=== PATIENT | male | born 1945 | race Caucasian/White ===

== ENCOUNTER → 2017-08-10 07:28 | Outpatient (CLI) | payer MEDICARE, BC, SELFPAY ==
--- NOTE | 2017-08-10 07:34 | CT_ITS ---
EXAM: CT LUNG LOW DOSE WO CONTRAST COMPARISON: None HISTORY: 72-year-old male with 55 pack-year smoking history asymptomatic, current smoker ORDERING PHYSICIAN: Jarod Aguilar MD PATIENT AGE: 72 years TECHNIQUE: The exam was performed on a GE Light Speed [address] scanner using 2.90 mGy CTDI. A low dose helical CT CHEST was performed on a multi-detector scanner. All CT scans at the facility use one or more dose reduction, viz: automated exposure control; ma/kV adjustment per patient size (including targeted exams where dose is matched to indication; i.e. head); or iterative reconstruction technique. The LDCT was performed in a facility that meets the criteria for the screening program. Data regarding this exam was submitted to ACR which is an approved registry. The order for this exam indicates that it came as a result of a lung cancer screening counseling shard decision-making visit that included all the elements required of such a visit including smoking cessation. The radiologist interpreting this exam meets the [facility] criteria for the LDCT lung cancer screening program. The exam is reported using the Lung-RADS classification scale and reported to the ACR registry. NOTE: This study was performed for the specific purposes of lung cancer screening and is not an alternative to diagnostic chest CT. RADIATION DOSE: CTDI vol(CT dose Index-volume) = 2.90mG DLP (Dose Length Product) = 108.9 mGcm FINDINGS: There are centrilobular and paraseptal emphysematous changes with scattered areas of pulmonary fibrosis. There is a calcified granuloma in the left upper lobe centrally. 2 mm noncalcified nodule present in subpleural region left upper lobe. Scattered small mediastinal lymph nodes present. Coronary artery calcifications are noted. Nonobstructing stones are present in the right kidney measuring up to 4 mm in the upper pole. There is hyperinflation with bronchial thickening consistent with obstructive chronic bronchitis. No suspicious pulmonary nodules are evident. IMPRESSION: 1. Lung RADS Category: 2, benign 2. Other findings: Centrilobular and paraseptal emphysema with obstructive chronic bronchitis. There is some mild honeycombing/fibrotic changes in the upper lobes and there is evidence of old granulomatous disease and coronary artery calcification as well as a nonobstructing right nephrolithiasis RECOMMENDATIONS: 12 LDCT follow-up
--- NOTE | 2017-08-10 08:00 | US_ITS ---
US abdomen complete HISTORY: Follow-up liver cyst ITS.REASON: ABNORMAL CT SCAN ORDERING PHYSICIAN: Jarod Aguilar MD PATIENT AGE: 72 years COMPARISON: MRI of 08/16/[address] scan to 411 FINDINGS: PANCREAS:6 LIVER:There is a 2.3 x 1.7 cm cystic area involving the right hepatic lobe posteriorly. No other liver lesions are evident. RIGHT KIDNEY:Hyperechoic foci are present in the mid and upper pole the right kidney consistent with nephrolithiasis. No hydronephrosis. LEFT KIDNEY:Unremarkable. No hydronephrosis. Normal size and echogenicity. GALLBLADDER:No gallstones, gallbladder wall thickening, pericholecystic fluid, or biliary dilatation. AORTA:Mild ectasia of the mid abdominal aorta at 2.5 cm SPLEEN:Unremarkable. Normal size and echogenicity ASCITES:None demonstrated. IMPRESSION: 1. 2.3 cm hepatic cyst on the right. 2. Right nephrolithiasis. 3. Mild ectasia of the mid abdominal aorta at 2.5 cm
== END ==
PROVIDERS: Family Provider Family Medicine; PCP Family Medicine; Visit Provider Family Medicine
DX: Z87.891 Personal history of nicotine dependence (principal); Z12.2 Encounter for screening for malignant neoplasm of respiratory organs; R93.5 Abnormal findings on diagnostic imaging of other abdominal regions, including retroperitoneum
CPT/HCPCS: 76700

== ENCOUNTER → 2017-10-26 17:06 | Outpatient (CLI) | payer MEDICARE, BC, SELFPAY ==
--- NOTE | 2017-10-26 17:15 | XR_ITS ---
XR chest 2V HISTORY: Pain ITS.REASON: HISTORY OF PERICARDITIS ORDERING PHYSICIAN: Jarod Aguilar MD PATIENT AGE: 72 years COMPARISON: None FINDINGS: Unremarkable cardiovascular structures. There is hyperinflation with attenuation of the peripheral pulmonary vessels consistent with COPD. No lobar consolidation or collapse. No acute bony anomalies. IMPRESSION: COPD
[2017-10-26 18:31] LABS: Creatine Kinase 91 U/L (39-308); Creatine Kinase MB 1.8 ng/ml (0.0-3.6); Troponin I < 0.02 ng/ml (0.00-0.06)
== END ==
PROVIDERS: Visit Provider Family Medicine
DX: M25.512 Pain in left shoulder (principal)
CPT/HCPCS: 36415; 71046; 82550; 82553; 84484; 93005

== ENCOUNTER → 2017-10-31 13:39 | Outpatient (CLI) | payer MEDICARE, BC, SELFPAY ==
--- NOTE | 2017-10-31 13:43 | CA_ITS ---
PROCEDURE: 2-D M-mode and color Doppler study INDICATIONS FOR THE TEST: Chest pain COPD Heart Murmur Tobacco SmokingX Palpitations Fatigue Syncope Edema Hypertension Diabetes Mellitus Rheumatic Fever SOB LANE Obesity HyperlipidemiaX Family History HD Additional History H/O PERICARDITIS PATIENT INFORMATION HEIGHT: 66 WEIGHT:140 GENDER: Male B/P:110/70 2-D/M-MODE INTERPRETATION: 2-D MEASUREMENTS OBSERVED VALUES IN CMS Right Ventricular Dimension (RVDd) 2.0 Interventricular Septum (Thickness)(IVsd) .8 Left Ventricular Internal Dimensions(LVIDd) 5.0 Left Ventricular Posterior Wall (Thickness)(LVPWd) .8 Aortic Root 3.4 Aortic Cusp Separation 3.1 Left Atrial Dimensions (LAD) 2.5 2D 1. Left atrium is normal size, left ventricle is normal size, there is no concentric left ventricular hypertrophy, visually estimated ejection fraction 55% with no obvious regional wall motion abnormality. 2. The right atrium and right ventricle are normal size and contractility. 3. The aortic valve is minimally thickened and fibrosed. 4. The mitral and tricuspid valve are grossly normal. 5. The pulmonic valve is poorly visualized. 6. No significant pericardial effusion noted. DOPPLER INTERROGATION: Doppler interrogation of the aortic, mitral and tricuspid valvular presence of mild mitral and tricuspid regurgitation, tricuspid and jet velocity is insufficient for calculation of the right ventricular systolic pressure, grade 1 diastolic dysfunction seen without tissue Doppler evidence of raised left atrial pressure. CONCLUSION: 1. Normal left ventricular size, preserved left ventricular systolic function, visually estimated ejection fraction 55% with no obvious regional wall motion abnormality, grade 1 diastolic dysfunction seen without tissue Doppler evidence of raised left atrial pressure. 2. Mild mitral and tricuspid regurgitation 3. No significant pericardial effusion noted.
== END ==
PROVIDERS: Family Provider Family Medicine; PCP Family Medicine; Visit Provider Family Medicine
DX: Z86.79 Personal history of other diseases of the circulatory system (principal); R42 Dizziness and giddiness; I32 Pericarditis in diseases classified elsewhere
CPT/HCPCS: 93306

== ENCOUNTER → 2018-01-11 08:47 | Outpatient (CLI) | payer MEDICARE, BC, SELFPAY ==
--- NOTE | 2018-01-11 08:54 | CI_ITS ---
Cerebrovascular Exam Indications: 785.9 Bruit. 433.10 Occlusion/stenosis of carotid artery without cerebral infarction. IMPRESSIONS 1. The bilateral vertebral arteries are patent with normal antegrade flow. 2. Study suggests 20-49% stenosis involving the right internal carotid artery and the left internal carotid artery. No change from the study of 02-Dec-2014. History: Risk factors: Current tobacco use. Hypertension. Hyperlipidemia. Carotid duplex study. Complete study and Doppler flow study including spectral analysis, color and esteban scale imaging. Location: Vascular laboratory. Patient status: Outpatient. Tables: Arterial flow: + +--------+--------+ Location V sys V ed + +--------+--------+ Right CCA - proximal 56.6cm/s 17.3cm/s + +--------+--------+ Right CCA - distal 51.9cm/s 16.5cm/s + +--------+--------+ Right ECA 104cm/s -------- + +--------+--------+ Right ICA - proximal 57cm/s 20.1cm/s + +--------+--------+ Right ICA - mid 62.4cm/s 20.6cm/s + +--------+--------+ Right ICA - distal 91.3cm/s 30cm/s + +--------+--------+ Right vertebral 31.9cm/s -------- + +--------+--------+ Left CCA - proximal 74.2cm/s 14.7cm/s + +--------+--------+ Left CCA - distal 60.9cm/s 12.8cm/s + +--------+--------+ Left ECA 89.4cm/s -------- + +--------+--------+ Left ICA - proximal 39.5cm/s 12.9cm/s + +--------+--------+ Left ICA - mid 54.5cm/s 17.1cm/s + +--------+--------+ Left ICA - distal 59.1cm/s 18.1cm/s + +--------+--------+ Left vertebral 41.9cm/s -------- + +--------+--------+ Velocity ratios: + + + + + + Right, V sys Right, V ed Left, V sys Left, V ed + + + + + + Max ICA/dist CCA 1.76 1.82 0.97 1.41 + + + + + + (Report amended ) Electronically signed by: Armani Hodges [id number]
== END ==
PROVIDERS: Family Provider Family Medicine; PCP Family Medicine; Visit Provider Family Medicine
DX: I65.23 Occlusion and stenosis of bilateral carotid arteries (principal)
CPT/HCPCS: 93880

== ENCOUNTER → 2018-10-11 14:57 | Outpatient (CLI) | payer MEDICARE, BC, SELFPAY ==
--- NOTE | 2018-10-11 15:06 | CT_ITS ---
CT lung screening EXAM: CT LUNG LOW DOSE WO CONTRAST HISTORY: 56 pack year smoking history, asymptomatic for lung cancer ITS.REASON: H/O NICOTINE DEPENDENCE ORDERING PHYSICIAN: Jarod Aguilar MD PATIENT AGE: 73 years COMPARISON: 08/10/2017 TECHNIQUE: The exam was performed on a GE Light Speed [address] scanner using 2.90 mGy CTDI. A low dose helical CT CHEST was performed on a multi-detector scanner. All CT scans at the facility use one or more dose reduction, viz: automated exposure control, ma/kV adjustment per patient size (including targeted exams where dose is matched to indication, i.e. head), or iterative reconstruction technique. The LDCT was performed in a facility that meets the criteria for the screening program. Data regarding this exam was submitted to ACR which is an approved registry. The order for this exam indicates that it came as a result of a lung cancer screening counseling shard decision-making visit that included all the elements required of such a visit including smoking cessation. The radiologist interpreting this exam meets the CMS criteria for the LDCT lung cancer screening program. The exam is reported using the Lung-RADS classification scale and reported to the ACR registry. NOTE: This study was performed for the specific purposes of lung cancer screening and is not an alternative to diagnostic chest CT. RADIATION DOSE: CTDI vol(CT dose Index-volume) = 2.90mG DLP (Dose Length Product) = 113.07 mGcm FINDINGS: Changes of COPD. Paraseptal emphysematous change. Old granulomatous disease. Coronary artery calcification. Upper abdominal images show right-sided nephrolithiasis. There is diffuse fatty infiltration of the pancreas. IMPRESSION: 1. Lung RADS Category: 2, benign 2. Other findings: COPD, are subcutaneous emphysema, coronary artery disease RECOMMENDATIONS: 12 month LDCT follow-up
== END ==
PROVIDERS: PCP Family Medicine; Visit Provider Family Medicine
DX: Z12.2 Encounter for screening for malignant neoplasm of respiratory organs (principal); Z87.891 Personal history of nicotine dependence

== ENCOUNTER → 2018-11-28 11:36 | Outpatient (CLI) | payer MEDICARE, BC, SELFPAY ==
--- NOTE | 2018-11-28 11:41 | XR_ITS ---
XR chest 2V HISTORY: ITS.REASON: HISTORY OF BACTERIAL PNEUMONIA,NICOTINE DEPENDENCE ORDERING PHYSICIAN: Jarod Aguilar MD PATIENT AGE: 73 years COMPARISON: 10/26/2017 FINDINGS: Unremarkable cardiovascular structures. COPD. No lobar consolidation or collapse. Mild degenerative changes of the shoulders and spine. IMPRESSION: No change with no acute finding, COPD
== END ==
PROVIDERS: PCP Family Medicine; Visit Provider Family Medicine
DX: Z87.01 Personal history of pneumonia (recurrent) (principal); Z87.891 Personal history of nicotine dependence
CPT/HCPCS: 71046

== ENCOUNTER → 2019-01-15 12:49 | Outpatient (POV) | payer MEDICARE, BC, SELFPAY | PROVIDERS: Visit Provider Internal Medicine | DX: Z00.00 Encounter for general adult medical examination without abnormal findings (principal) ==

== ENCOUNTER → 2019-01-21 10:58 | Outpatient (CLI) | payer MEDICARE, BC, SELFPAY ==
[2019-01-21 12:15] VITALS: PULSE 89
== END ==
PROVIDERS: PCP Family Medicine; Visit Provider Internal Medicine
DX: R06.02 Shortness of breath (principal); J44.9 Chronic obstructive pulmonary disease, unspecified
CPT/HCPCS: 94060; 94618; 94640; 94726; 94729

== ENCOUNTER → 2019-03-26 16:33 | Outpatient (CLI) | payer MEDICARE, BC, SELFPAY ==
--- NOTE | 2019-03-26 16:53 | MR_ITS ---
PROCEDURE: MR HEAD/BRAIN WO/W CON CLINICAL INDICATION: TIA Left-sided face arm hand and leg numbness COMPARISON: No exams were available for comparison TECHNIQUE: Routine multiplanar multi echo sequences are performed without and with gadolinium enhancement. FINDINGS: No midline shift, mass effect, intracranial hemorrhage, or hydrocephalus. No evidence of acute infarction. There are periventricular and subcortical T2 white matter hyperintensities consistent with ischemic gliotic change from microvascular disease. The cerebellopontine angles, cerebellum, and brainstem are unremarkable. The pituitary, optic chiasm, corpus callosum, and craniocervical junction have an unremarkable appearance. No mastoid effusion or sinus air-fluid level. No enhancing lesions are evident. There are cystic encephalomalacia changes with old bilateral lacunar infarctions of the basal ganglia. There is partial empty sella as a normal variant. IMPRESSION: 1. No acute intracranial findings. 2. Old bilateral lacunar infarctions with periventricular ischemic gliotic change Dictated by: Armani Hodges MD 03/26/2019 17:56 Electronically signed by Armani Hodges MD in [place] 03/27/2019 04:54
[2019-03-26 16:56] LABS: Blood Urea Nitrogen 18 mg/dL (7-18); Creatinine,Serum 1.08 mg/dL (0.70-1.30); Estimated Glomerular Filt Rate 67 ml/min (>60); GFR (African American) 82 ML/MIN (>60)
== END ==
PROVIDERS: Visit Provider Family Medicine
DX: G45.9 Transient cerebral ischemic attack, unspecified (principal)
CPT/HCPCS: 36415; 70553; 82565; 84520; A9576

== ENCOUNTER → 2019-05-31 16:49 | Outpatient (CLI) | payer MEDICARE, BC, SELFPAY ==
--- NOTE | 2019-05-31 16:56 | XR_ITS ---
PROCEDURE: XR CHEST 2V CLINICAL HISTORY: PNEUMONIA RT LOWER LOBE COMPARISON: CXR2V XR chest 2V from 10/26/[address] chest w con from 10/28/2018 FINDINGS: [id number] emphysematous changes again noted with flattening of the hemidiaphragms. There is a somewhat ill-defined pneumonic infiltrate in the right infrahilar region and right lower lobe. There is blunting of the right costophrenic angle consistent with small pleural effusion. The right upper lung field and left lung dunlap are clear. Cardiac size is normal and vascularity is normal. IMPRESSION: Ill-defined right lower lobe pneumonia with small reactive pleural effusion along with underlying COPD Dictated by: Dr. Suresh Hamm MD 06/01/2019 08:[address] Suresh Hamm MD in [place] 06/01/2019 08:30
== END ==
PROVIDERS: PCP Family Medicine; Visit Provider Family Medicine
DX: R55 Syncope and collapse (principal); J18.9 Pneumonia, unspecified organism
CPT/HCPCS: 71046

== ENCOUNTER → 2019-06-03 12:24 | Outpatient (CLI) | payer MEDICARE, BC, SELFPAY | PROVIDERS: PCP Family Medicine; Visit Provider Family Medicine | DX: R55 Syncope and collapse (principal); J18.9 Pneumonia, unspecified organism | CPT/HCPCS: 93225; 93226 ==

== ENCOUNTER → 2019-06-11 07:39 | Outpatient (CLI) | payer MEDICARE, BC, SELFPAY ==
[2019-06-11 07:57] LABS: Blood Urea Nitrogen 17 mg/dL (7-18); Creatinine,Serum 1.07 mg/dL (0.70-1.30); Estimated Glomerular Filt Rate 68 ml/min (>60); GFR (African American) 82 ML/MIN (>60)
--- NOTE | 2019-06-11 08:34 | CT_ITS ---
PROCEDURE: CT CHEST W CON CLINCAL INDICATION: RT LOW LOBE PNEUMONIA Follow-up pneumonia, smoker COMPARISON: CHESTW CT chest w con from 10/28/2018 XR CHEST 2V from 05/31/2019 TECHNIQUE: IV Contrast: 75ml Optiray 350 Axial images obtained with sagittal and coronal reformats. All CT scans at the facility use one or more dose reduction, viz: automated exposure control, ma/kV adjustment per patient size (including targeted exams where dose is matched to indication, i.e. head), or iterative reconstruction technique. FINDINGS: No mediastinal or hilar mass or adenopathy. Atherosclerotic changes involve the aorta and great vessels. No definite aneurysm or dissection. There is minimal ectasia of the aortic arch at 3 cm. There are few scattered small mediastinal lymph nodes not significantly changed. Coronary artery calcifications are present and there is calcification at the aortic root. Normal heart size. COPD changes with paraseptal emphysema. There is consolidation in the right lower lobe inferiorly and posteriorly consistent with pneumonia. There is an irregular opacity in the right lower lobe laterally which could also be related to some underlying pneumonia. Developing spiculated nodule is an additional consideration. This measures 1.6 cm and follow-up is suggested of this lesion. This is near but not immediately adjacent to the main area of pneumonia in the right lower lobe. No central obstructing lesions. There is a calcified granuloma in the left upper lobe. Atelectatic changes are present in the left lower lobe. There is trace right pleural effusion the There are degenerative changes in the thoracic spine with mild levoscoliosis. Degenerative changes at the body and manubrium of the sternum Upper abdominal images show nonobstructing right renal calculi measuring up to 4 mm. There is mild atrophic change of the left kidney. There is approximately 40-50 percent stenosis of the ostium of the celiac artery and the proximal SFA IMPRESSION: 1. Changes of COPD with right lower lobe pneumonia with trace right effusion 2. 1.6 cm irregular opacity right lower lobe laterally and more superiorly which could also be due to a separate focus of pneumonia. Recommend 3 month follow-up to confirm resolution as neoplasm is not excluded 3. Other nonacute findings as described above Dictated by: Armani Hodges MD 06/12/2019 07:05 Electronically signed by Armani Hodges MD in [place] 06/12/2019 07:05
== END ==
PROVIDERS: PCP Family Medicine; Visit Provider Family Medicine
DX: R09.89 Other specified symptoms and signs involving the circulatory and respiratory systems (principal); J18.9 Pneumonia, unspecified organism
CPT/HCPCS: 36415; 71260; 82565; 84520; Q9967

== ENCOUNTER → 2019-07-08 12:31 | Outpatient (CLI) | payer MEDICARE, BC, SELFPAY ==
--- NOTE | 2019-07-08 12:38 | XR_ITS ---
PROCEDURE: XR CHEST 2V CLINICAL HISTORY: PNEUMONIA Follow-up pneumonia COMPARISON: CXR2V XR chest 2V from 10/26/2017 XR CHEST 2V from 05/31/2019 CT CHEST W CON from 06/11/2019 FINDINGS: The cardiomediastinal silhouette and pulmonary vascularity are within normal limits. COPD. Right lower lobe infiltrate once again noted but has shown some improvement. Small right pleural effusion persists but has improved. No acute bony findings. IMPRESSION: Persistent but improving right lower lobe pneumonia with small effusion Dictated by: Armani Hodges MD 07/08/2019 13:06 Electronically signed by Armani Hodges MD in [place] 07/08/2019 13:06
== END ==
PROVIDERS: PCP Family Medicine; Visit Provider Family Medicine
DX: J18.9 Pneumonia, unspecified organism (principal)
CPT/HCPCS: 71046

== ENCOUNTER → 2020-02-17 12:09 | Outpatient (CLI) | payer MEDICARE, BC, SELFPAY ==
--- NOTE | 2020-02-17 | CA_ITS ---
APPROVED REPORT [employer]: CT Laterality: Bilateral Study Quality: Fair, Due to body habitus. Indications: Bruit Risk Factors Hypertension: Hyperlipidemia Doppler Spectral Velocity Analysis ECA (R) 88.00/13.50 cm/s ECA (L) 87.30/10.30 cm/s dICA (R) 99.50/19.90 cm/s dICA (L) 75.40/20.90 cm/s Tj (R) 95.00/20.50 cm/s Tj (L) 65.10/18.10 cm/s pICA (R) 59.90/16.70 cm/s pICA (L) 53.20/15.40 cm/s dCCA (R) 57.80/8.30 cm/s dCCA (L) 69.30/9.60 cm/s pCCA (R) 87.40/11.10 cm/s pCCA (L) 102.10/10.90 cm/s Vert (R) 43.40/5.10 cm/s Vert (L) 46.90/10.90 cm/s ICA/CCA 1.70 ICA/CCA 1.10 Findings Duplex evaluation demonstrates stenosis of the right proximal internal carotid artery in the range of 20-49%. Duplex evaluation demonstrates stenosis of the left proximal internal carotid artery in the range of 20-49%. Duplex evaluation demonstrates antegrade flow of the bilateral Vertebral Arteries. Difficult exam. Conclusion Duplex evaluation demonstrates stenosis of the right proximal internal carotid artery in the range of 20-49%. Duplex evaluation demonstrates stenosis of the left proximal internal carotid artery in the range of 20-49%. Duplex evaluation demonstrates antegrade flow of the bilateral Vertebral Arteries. Difficult exam. Electronically signed by : Armani Hodges MD 02/17/2020 17:16:05
--- NOTE | 2020-02-17 13:37 | CT_ITS ---
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 All CT scans at the facility use one or more dose reduction, viz: automated exposure control, ma/kV adjustment per patient size (including targeted exams where dose is matched to indication, i.e. head), or iterative reconstruction technique. FINDINGS: HEART AND MEDIASTINAL STRUCTURES: No mediastinal or hilar mass or adenopathy. Coronary artery calcifications are present.. No evidence of aortic aneurysm, dissection, or pulmonary embolus. Atherosclerotic calcifications involve the aorta great vessels, coronary arteries and at the ostium of the celiac and SMA the. LUNGS AND PLEURAL SPACES: COPD with scattered areas of scarring with paraseptal emphysema. Previously described pneumonia in the right lower lobe has cleared. There is some minimal scarring in the right lung base laterally. The 1.6 cm parenchymal opacity in the right lower lobe more superior to the previously described pneumonia has also cleared. No suspicious nodules are evident. BONY STRUCTURES: Degenerative changes thoracic spine UPPER ABDOMEN: There is a 2.4 cm isodense oval lesion involving the right hepatic lobe posteriorly previously felt to represent a hepatic cyst previous exams. There is diffuse fatty infiltration of the pancreas. There are nonobstructing right renal calculi ADDITIONAL FINDINGS: No other significant abnormalities. IMPRESSION: 1. No acute finding. 2. COPD with scattered areas of scarring. 3. Previously noted spiculated nodule in the right lower lobe and right lower lobe pneumonia has resolved. No suspicious lesions are evident. 4. Other nonacute findings as described above Dictated by: Armani Hodges MD 02/18/2020 08:32 Armani Hodges MD in [place] 02/18/2020 08:32
[2020-02-17 14:46] LABS: Blood Urea Nitrogen 14 mg/dl (9-20); Estimated Glomerular Filt Rate 83 ml/min (>60); GFR (African American) 100 ML/MIN (>60)
== END ==
PROVIDERS: PCP Family Medicine; Visit Provider Family Medicine
DX: I65.23 Occlusion and stenosis of bilateral carotid arteries (principal); R93.89 Abnormal findings on diagnostic imaging of other specified body structures
CPT/HCPCS: 36415; 71260; 82565; 84520; 93880; Q9967

== ENCOUNTER → 2021-02-25 09:47 | Outpatient (CLI) | payer MEDICARE, BC, SELFPAY | PROVIDERS: PCP Family Medicine; Visit Provider Family Medicine | DX: U07.1 COVID-19 (principal); Z23 Encounter for immunization | CPT/HCPCS: 96365 ==

== ENCOUNTER → 2022-02-24 14:35 | Outpatient (CLI) | payer MEDICARE, BC, SELFPAY ==
--- NOTE | 2022-02-24 14:42 | CT_ITS ---
FINAL REPORT CLINICAL HISTORY: H/O NICOTINE DEPENDENCE, patient states he has cut way back, still smokes every once in a while, cut back 2 years ago , before that it was 1 1/2 packs a day x 50 years COMPARISON: February 17, 2020 FINDINGS: Low-Dose Chest CT CTDI vol (mGy): 2.90 DLP (mGy-cm): 109.68 Axial images were obtained from the lung apex to the mid abdomen by computed tomography. Low-dose protocol was utilized. FINDINGS: CHEST: There is no axillary adenopathy. There is no hilar or mediastinal adenopathy. There is calcification in the aortic arch. There is dense calcification in the coronary arteries. The heart is proper size. There is no pericardial or pleural effusion. Limited images of the upper abdomen are unremarkable. Lung window images demonstrate no suspicious infiltrate or nodule. There is scarring in the right lung base. IMPRESSION: Lung RADS category 1. Recommend 12 month follow-up low-dose chest CT. Reviewed, Interpreted and Dictated by Brenton Webb MD Transcribed by Kendrick Ca Authenticated and . [facility]
== END ==
PROVIDERS: PCP Family Medicine; Visit Provider Family Medicine
DX: Z87.891 Personal history of nicotine dependence (principal); Z12.2 Encounter for screening for malignant neoplasm of respiratory organs
CPT/HCPCS: 71271

== ENCOUNTER 2022-04-26 11:21 | Day surgery (SDC) | payer MEDICARE, BC, SELFPAY ==
[2022-04-22 17:12] VITALS: BMI 24.2
[2022-04-26] VITALS (10 sets, daily range): BP systolic 82–160; BP diastolic 47–69; PULSE 65–102; RESP 16–17; TEMP 36.3–36.4; O2SAT 92–96
--- NOTE | 2022-04-26 12:06 | EXP.ANES.CKL ---
[facility] Disclaimer: The information contained in this section may have been updated after the patient was seen, as this information can be updated by other users. Medical History Congestive heart failure Hyperlipidemia Surgical History History of rotator cuff surgery Family History Other No significant family history Social History Smoking Status: Never smoker alcohol intake: never substance use type: denies use current occupational status: retired Travel in the last 8 weeks: None [facility] Anesthesia Checklist Patient Identification Patient Identification: Arm Band and Verbal (Name & ) Structural Data Admitted From: Home Planned Operative Procedure/s: Colonoscopy Consent for Planned Operative Procedure(s) Verified: Yes NPO Status Verified Time NPO: 00:00 Airway Assessment C-Spine Mobility Assessed: Yes TMJ Mobility Assessed: Yes Dentition: Dentures-good fit Neurological Assessment Level of Consciousness: Awake Hx Seizures: No Numbness or tingling in extremities: No Anesthesia Plan Anesthesia Risk discussed: Yes Anesthesia Plan: Verified ASA Class: III Anesthesia Type: MAC
--- NOTE | 2022-04-26 13:47 | P.PCN_ITS ---
Procedure: Date: 04/26/22 Patient Date of :: 1945 Procedure Performed:: Colonoscopy with polypectomy Indications:: History of colon polyps Performing Provider:: Will Taylor MD Referring Provider:: . Sedation:: Monitored anesthesia care Procedure:: After informed consent was obtained the patient was taken to the endoscopy suite. Sedation ensued after the patient was transferred to the left lateral d ecubitus position. Pulse, blood pressure, and oxygen saturation were monitored throughout the procedure. Digital rectal exam revealed no significant abnormality. The colonoscope was placed in position. The entire colon was evaluated. The colonoscope was carefully removed and the patient was transferred to recovery in stable condition. Please see findings and specimens below for detail. Findings:: Bowel preparation fair to moderate Profound lack of relaxation/spasticity Hemorrhoidal tag/cushions Multiple large complex sessile polyps (see specimens) Specimens:: Complex lobulated sessile right colon polyps (x8) - cold snare and cold biopsy forceps Complex lobulated sessile hepatic flexure polyps (x7) - cold snare Complex lobulated sessile polyps around 50 cm (x8) - cold snare Complex lobulated sessile polyps around 40 cm (x5) - cold snare Complex lobulated sessile polyps around 35 cm (x6) - cold snare Complex lobulated sessile polyps around 30 cm (x8) - cold snare Recommendations:: Repeat colonoscopy in 6-12 months secondary to massive polyp burden, spasticity, and lack of relaxation. Complications:: No immediate Estimated blood obtained (mL): 1
--- NOTE | 2022-04-26 14:22 | SUR.PHASEII ---
Jalil Boggs notified Donald Walter CRNA of BP of 55-60 systolicly at times. she stated she would put in an order for medicine. pt put in new position to try and help bp.
== END 2022-04-26 15:08 | disposition home or self-care (01) ==
PROVIDERS: PCP Family Medicine; Visit Provider Surgery
PROC: 0DJD8ZZ Inspection of Lower Intestinal Tract, Via Natural or Artificial Opening Endoscopic (ICD-10-PCS; principal; 2022-04-26 12:30)
DX: R19.5 Other fecal abnormalities (principal); D12.6 Benign neoplasm of colon, unspecified; Z86.010 Personal history of colon polyps; Z79.899 Other long term (current) drug therapy
CPT/HCPCS: 45380; 45385; 88305; J1610; J2704

== ENCOUNTER → 2022-10-17 11:52 | Outpatient (CLI) | payer MEDICARE, BC, SELFPAY ==
[2022-10-17 12:28] LABS: Blood Urea Nitrogen 20 mg/dl (9-20); Estimated Glomerular Filt Rate 73 ml/min (>60); GFR (African American) 88 ML/MIN (>60)
== END ==
PROVIDERS: PCP Family Medicine; Visit Provider Family Medicine
DX: M51.16 Intervertebral disc disorders with radiculopathy, lumbar region (principal)
CPT/HCPCS: 36415; 82565; 84520

== ENCOUNTER → 2022-10-24 12:47 | Outpatient (CLI) | payer MEDICARE, BC, SELFPAY ==
--- NOTE | 2022-10-24 12:52 | MR_ITS ---
FINAL REPORT CLINICAL HISTORY: LUMBAR DISC DISEASEWITH RADICULOPATHY. bilateral leg numbness. no injury or trauma FINDINGS: Multiplanar MR imaging of the lumbar spine was performed without and with contrast. On the sagittal T2-weighted images, abnormal decreased signal is seen throughout. There are endplate changes at multiple levels. Mild retrolisthesis is seen from L1-2 through L5-S1. There is mild rightward curvature. There is no evidence of fracture. The conus is seen at approximately the L1 level and has an unremarkable appearance. T11-12: Annular disc bulge with facet arthropathy and osteophytes. T12-L1: Annular disc bulge with facet arthropathy and osteophytes. There is mild right neural foraminal narrowing. L1-2: Annular disc bulge with facet arthropathy and osteophytes. There is mild bilateral neural foraminal narrowing. L2-3: Annular disc bulge with facet arthropathy and osteophytes. There is mild bilateral neural foraminal narrowing. L3-4: Annular disc bulge with facet arthropathy and osteophytes. There is moderate right and severe left neural foraminal narrowing. L4-5: Annular disc bulge with facet arthropathy and osteophytes. There is moderate right and mild left neural foraminal narrowing. L5-S1: Annular disc bulge with facet arthropathy and mild bilateral neural foraminal narrowing. No abnormal contrast enhancement is identified. IMPRESSION: Multilevel mild degenerative disc disease and spondylosis with areas of neural foraminal narrowing as described. Reviewed, Interpreted and Dictated by Zachery Clements III, MD Transcribed by Shama Box Authenticated and [facility]
== END ==
PROVIDERS: PCP Family Medicine; Visit Provider Family Medicine
DX: M54.50 Low back pain, unspecified (principal); M54.16 Radiculopathy, lumbar region
CPT/HCPCS: 72158; 76376; A9576

== ENCOUNTER 2022-11-26 10:21 | Emergency (ER) | payer MEDICARE, BC, SELFPAY ==
[2022-11-26 10:31] VITALS: BP 134/63; PULSE 75; O2SAT 96
--- NOTE | 2022-11-26 10:32 | PC.NURSE ---
ER @ BS, vitals obtained upon arrival
[2022-11-26 10:43] VITALS: BP 134/63; PULSE 69; RESP 20; TEMP 36.7; O2SAT 96; BMI 24.2
--- NOTE | 2022-11-26 10:48 | HMH.EDGENADL ---
Discharge Plan Disposition Patient Disposition: Home, Self-Care Condition: Good Prescriptions Prescriptions: No Action losartan-hydrochlorothiazide 50-12.5 mg tablet 1 tab PO DAILY gemfibrozil 600 mg tablet 600 mg PO DAILY atorvastatin 20 mg tablet 20 mg PO DAILY clopidogrel 75 mg tablet 75 mg PO DAILY aspirin 81 mg Capsule 81 mg PO DAILY Referrals Follow up/Referrals: Jarod Aguilar MD [Primary Care Provider] - See instructions Activity Restrictions/Add. Instructions Additional Instructions/Restrictions: At this time was felt you are safe to be discharged home. If new or worsening symptoms please do not hesitate to return to the emergency department. Please follow-up with your family doctor for continued evaluation of your numbness as well as rechecking your calcium. Please follow-up with your spine doctor as discussed. Clinical Impressions Clinical Impression: Alterations of sensations, Hypocalcemia Discharge ED Provider: Benny Burgess General Adult HPI General Chief complaint: Extremity Problem,Nontraumatic Stated complaint: numbness in feet and side Time Seen by Provider: 11/26/22 10:29 History of Present Illness HPI narrative: Patient is a 77-year-old male with past medical history of hypertension, hyperlipidemia, not current smoker however multi pack-year smoker history who presents emergency department for evaluation of sensation changes. History is obtained by patient at bedside. He states that he was started on donepezil for dementia approximately 4 weeks ago. After 2 weeks he noticed tingling in the distal plantar aspect of his feet bilaterally. He self discontinued his donepezil approximately 2 weeks ago and symptoms have not resolved. He has a history of longstanding back pain that is currently under investigation by spine doctors and his next appointment is Monday for possible surgical intervention for reported multiple degenerative disks and slipped disc abnormalities in his mid to low back. He states that there is an area of change sensation over his right upper quadrant however it is not truly numb. Patient denies significant alcohol intake, saddle anesthesia, speech changes, incontinence, weakness, gait changes, trauma. Related Data Home Medications Medication Instructions Recorded Confirmed atorvastatin 20 mg tablet 20 mg PO DAILY hld 07/15/19 05/04/22 clopidogrel 75 mg tablet 75 mg PO DAILY Blood thinner 07/15/19 05/04/22 gemfibrozil 600 mg tablet 600 mg PO DAILY hld 07/15/19 05/04/22 losartan 50 mg-hydrochlorothiazide 1 tab PO DAILY Fluid 07/15/19 05/04/22 12.5 mg tablet aspirin 81 mg capsule 81 mg PO DAILY CAD 04/22/22 05/04/22 Allergies Allergy/AdvReac Type Severity Reaction Status Date / Time No Known Allergies Allergy Verified 05/04/22 10:50 [facility] Disclaimer: The information contained in this section may have been updated after the patient was seen, as this information can be updated by other users. Medical History Congestive heart failure Hyperlipidemia Surgical History History of rotator cuff surgery Family History Other No significant family history Social History Smoking Status: Former smoker alcohol intake: never substance use type: denies use current occupational status: retired Travel in the last 8 weeks: None ROS Obtained: Yes Systems reviewed as appropriate & no additional complaints except as documented Physical Exam General General appearance: alert and in no apparent distress Head Head exam: atraumatic and normocephalic Eye Eye exam: Present PERRL and EOMI ENT ENT exam: Present mucous membranes moist Neck Neck exam: Present normal inspection Ches
[2022-11-26 11:00] VITALS: BP 103/64; PULSE 60; RESP 18; O2SAT 93
[2022-11-26 11:16] LABS: Basophils % 0.4 % (0.1-2.0); Eosinophils # 0.2 K/mm3 (0.0-0.4); Hematocrit 38.5 % (42.0-52.0); Hemoglobin 12.4 g/dL (14.1-18.0); Lymphocytes # 1.2 K/mm3 (0.7-4.5); Lymphocytes % 19.7 % (10-50); Mean Corpuscular HGB Conc 32.3 g/dL (31.8-35.4); Mean Corpuscular Hemoglobin 28.8 pg (27.0-31.2); Mean Corpuscular Volume 89.1 fl (80-94); Monocytes # 0.4 K/mm3 (0.1-1.0); Monocytes % 7.3 % (1.7-9.3); Neutrophils # 4.1 K/mm3 (1.8-7.8); Neutrophils % 69.6 % (37.0-80.0); Platelet Count 294 K/mm3 (142-424); Red Blood Count 4.32 M/mm3 (4.60-6.20); Red Cell Distribution Width 13.5 % (11.5-17.5); White Blood Count 5.9 K/mm3 (4.8-10.8)
[2022-11-26 11:22] LABS: Chloride 102 mmol/L (98-107); Sodium 139 mmol/L (136-145)
[2022-11-26 11:24] LABS: Alanine Aminotransferase 37 U/L (12-78); Aspartate Amino Transferase 54 U/L (17-59); Blood Urea Nitrogen 21 mg/dl (9-20); Creatinine Clearance Estimated 61 mL/min (50-200); Estimated Glomerular Filt Rate 73 ml/min (>60); GFR (African American) 88 ML/MIN (>60)
[2022-11-26 11:25] LABS: Albumin/Globulin Ratio 1.4 (1.1-1.8); Alkaline Phosphatase 77 U/L (38-126); Anion Gap 9.4 mEq/L (5-15); Bilirubin,Total 0.4 mg/dl (0.2-1.3); Carbon Dioxide 32 mmol/L (22.0-30.0); Globulin 2.9 g/dL (1.3-3.2); Magnesium 1.9 mg/dl (1.6-2.3); Potassium 4.4 mmoL/L (3.5-5.1); Total Protein,Serum 6.9 g/dl (6.3-8.2)
[2022-11-26 11:31] LABS: Glucose 100 mg/dl (74-100)
[2022-11-26 11:34] VITALS: BP 126/56; PULSE 60; RESP 18; O2SAT 97
[2022-11-26 13:09] VITALS: BP 147/80; PULSE 84; RESP 20; TEMP 36.8; O2SAT 99
== END 2022-11-26 13:10 | disposition home or self-care (01) ==
PROVIDERS: Emergency Provider Emergency Medicine; PCP Family Medicine
DX: E83.51 Hypocalcemia (principal); R20.0 Anesthesia of skin; I11.0 Hypertensive heart disease with heart failure; E78.5 Hyperlipidemia, unspecified; I50.9 Heart failure, unspecified; Z87.891 Personal history of nicotine dependence
CPT/HCPCS: 80053; 83735; 85025; 96365; 96366; 99284

== ENCOUNTER → 2022-12-09 09:17 | Outpatient (CLI) | payer MEDICARE, BC, SELFPAY ==
--- NOTE | 2022-12-09 09:26 | US_ITS ---
FINAL REPORT CLINICAL HISTORY: HLD, claudication FINDINGS: LOWER EXTREMITY SEGMENTAL PRESSURE MEASUREMENTS FINDINGS: Pressure indices are as follows: RIGHT LOWER EXTREMITY: Thigh:112 Calf: 109 Ankle, posterior tibial artery: 116 Ankle, dorsalis pedis: 113 Toe: 66 Comments: LEFT LOWER EXTREMITY: Thigh:94 Calf: 101 Ankle, posterior tibial artery: 101 Ankle, dorsalis pedis: 94 Toe: 53 Comments: IMPRESSION: Mild peripheral vascular disease, right greater than left. Reviewed, Interpreted and Dictated by Jarod Camacho MD Transcribed by Shama Box Authenticated and [facility]
== END ==
PROVIDERS: PCP Family Medicine; Visit Provider Family Medicine
DX: I70.213 Atherosclerosis of native arteries of extremities with intermittent claudication, bilateral legs (principal); E78.5 Hyperlipidemia, unspecified
CPT/HCPCS: 93923

== ENCOUNTER → 2023-01-13 13:15 | Outpatient (CLI) | payer MEDICARE, BC, SELFPAY ==
--- NOTE | 2023-01-13 13:46 | CA_ITS ---
FINAL REPORT TECHNIQUE: Multiple transverse and longitudinal images were performed of the right femoral-popliteal deep venous system with augmentation and compression maneuvers. CLINICAL HISTORY: LBP with injury, Right leg pain from groin to lower calf. FINDINGS: Right lower extremity duplex ultrasound demonstrates normal flow in the deep venous system. There is no abnormal echogenicity to suggest thrombus. There is normal compression and augmentation. IMPRESSION: No evidence of right DVT. Reviewed, Interpreted and Dictated by Brenton Webb MD Transcribed by Chelsey Holloway Authenticated and [facility]
== END ==
PROVIDERS: PCP Family Medicine; Visit Provider Family Medicine
DX: M79.604 Pain in right leg (principal)
CPT/HCPCS: 93971

== ENCOUNTER 2023-06-21 11:41 | Observation (INO) | payer MEDICARE, BC, SELFPAY ==
[2023-06-21] VITALS (23 sets, daily range): BP systolic 75–145; BP diastolic 32–75; PULSE 90–147; RESP 15–20; TEMP 36.6–37.4; O2SAT 92–96; BMI 23.8; BMI 24.5
--- NOTE | 2023-06-21 12:15 | XR_ITS ---
FINAL REPORT CLINICAL HISTORY: general weakness COMPARISON: None FINDINGS: SINGLE VIEW CHEST A spinal stimulator is noted overlying the thoracic spine. Cardiomegaly is noted. The mediastinum is within normal limits. No confluent infiltrates are identified. The bony thorax is intact. IMPRESSION: No active disease. Spinal stimulator is present. Reviewed, Interpreted and Dictated by Zachery Clements III, MD Transcribed by Elizabet Butler Authenticated and [facility]
[2023-06-21] MEDS: LACTATED RINGERS 1000ML 1,910 ML 955 ML IV (12:19)
--- NOTE | 2023-06-21 12:33 | ED_ITS ---
Discharge Plan Disposition Patient Disposition: Home, Self-Care Chief Complaint: Weakness Prescriptions Prescriptions: No Action losartan-hydrochlorothiazide 50-12.5 mg tablet 1 tab PO DAILY gemfibrozil 600 mg tablet 600 mg PO DAILY atorvastatin 20 mg tablet 20 mg PO DAILY clopidogrel 75 mg tablet 75 mg PO DAILY aspirin 81 mg Capsule 81 mg PO DAILY Referrals Follow up/Referrals: Jarod Aguilar MD [Primary Care Provider] - See instructions Clinical Impressions Clinical Impression: COVID-19, Acute respiratory failure with hypoxemia, Generalized weakness Discharge ED Provider: Ivan August General Adult HPI General Chief complaint: Weakness Stated complaint: fever, no energy, vomiting, Time Seen by Provider: 06/21/23 11:45 Mode of Arrival: Ambulatory Source of Information: Patient and Relative Limitations: No Limitations Description of Symptoms (Recalled from ER Triage Doc. by RN): c/o fever, weak, lethargic, runny nose since Monday with low appetite. History of Present Illness HPI narrative: 77-year-old male history of hypertension, hyperlipidemia, CAD on Plavix, CHF presenting with generalized weakness. Patient states that he has had fever, with generalized weakness, runny nose, cough and decreased appetite for a couple of days. States that he has not been eating or drinking much at all. Today, he came to the emergency department because he tried to take a warm shower with his symptoms and sat in shower chair. Was largely unable to get himself out of the shower chair. Once able to finally stand up, called family to take him to the emergency department. Cough is productive of brownish sputum, no nausea vomiting, diarrhea, constipation, abdominal pain, chest pain, shortness of breath, or any other concerns. Related Data Home Medications Medication Instructions Recorded Confirmed atorvastatin 20 mg tablet 20 mg PO DAILY hld 07/15/19 05/04/22 clopidogrel 75 mg tablet 75 mg PO DAILY Blood thinner 07/15/19 05/04/22 gemfibrozil 600 mg tablet 600 mg PO DAILY hld 07/15/19 05/04/22 losartan 50 mg-hydrochlorothiazide 1 tab PO DAILY Fluid 07/15/19 05/04/22 12.5 mg tablet aspirin 81 mg capsule 81 mg PO DAILY CAD 04/22/22 05/04/22 Allergies Allergy/AdvReac Type Severity Reaction Status Date / Time No Known Allergies Allergy Verified 05/04/22 10:50 PFSH PFSH Disclaimer: The information contained in this section may have been updated after the patient was seen, as this information can be updated by other users. Medical History Congestive heart failure Hyperlipidemia Surgical History History of rotator cuff surgery Family History Other No significant family history Social History Smoking Status: Former smoker alcohol intake: never substance use type: denies use current occupational status: retired Travel in the last 8 weeks: None ROS Obtained: Yes All systems reviewed & no additional complaints except as documented Physical Exam General General appearance: alert and in no apparent distress Head Head exam: atraumatic and normocephalic Eye Eye exam: Present normal appearance, PERRL and EOMI ENT ENT exam: Present mucous membranes moist Neck Neck exam: Present normal inspection, full ROM and trachea midline Respiratory Respiratory exam: Absent respiratory distress, wheezes, stridor, accessory muscle use or prolonged expiratory phase Cardiovascular Cardiovascular exam: Present normal rhythm and tachycardia Abdominal Exam Abdominal exam: Present soft; Absent distention, tenderness, guarding, rebound or rigidity Extremities Exam Extremities exam: Absent edema Neurological Exam Neurological exam: Present alert, oriented X3, CN II-XII intact and normal gait; Absent motor sensory deficit Skin Skin exam: Present warm and dry; Absent diaphoresis or erythema Medical Decision Making Medical Records Medical records reviewed: Yes I reviewed the patient's medical records. Rickey Inquiry Pt receiving controlled substance: No Rickey was queried for this patient: No Vital Signs: 06/21/23 11:42 06/21/23 11:50 06/21/23 12:00 Temperature 99.3 F Temperature Source Oral Pulse Rate 147 H 147 H Pulse Rate [Left Radial] 147 H Respiratory Rate 18 Blood Pressure 77/49 L 92/53 L Blood Pressure [Right Arm] 75/44 L Blood Pressure Mean 55 61 Blood Pressure Mean [Right Arm] 54 Blood Pressure Source [Right Arm] Automatic Cuff Blood Pressure Position [Right Arm] Sitting 02 Sat by Pulse Oximetry 94 L 94 L 94 L Oxygen Delivery Method Room Air 06/21/23 12:20 06/21/23 12:30 06/21/23 12:40 Temperature Temperature Source Pulse Rate 140 H 111 H Pulse Rate [Left Radial] Respiratory Rate Blood Pressure 91/50 L 87/59 L 103/62 L Blood Pressure [Right Arm] Blood Pressure Mean 61 65 71 Blood Pressure Mean [Right Arm] Blood Pressure Source [Right Arm] Blood Pressure Position [Right Arm] 02 Sat by Pulse Oximetry 93 L 93 L Oxygen Delivery Method 06/21/23 13:00 06/21/23 13:31 06/21/23 14:00 Temperature Temperature Source Pulse Rate 102 H 107 H 97 H Pulse Rate [Left Radial] Respiratory Rate 20 20 20 Blood Pressure 92/51 L 75/32 L 102/53 L Blood Pressure [Right Arm] Blood Pressure Mean 61 46 72 Blood Pressure Mean [Right Arm] Blood Pressure Source [Right Arm] Blood Pressure Position [Right Arm] 02 Sat by Pulse Oximetry 94 L 95 93 L Oxygen Delivery Method 06/21/23 14:21 06/21/23 14:30 06/21/23 14:40 Temperature Temperature Source Pulse Rate 100 H 99 H 93 H Pulse Rate [Left Radial] Respiratory Rate Blood Pressure 104/60 L 117/63 99/53 L Blood Pressure [Right Arm] Blood Pressure Mean 76 81 68 Blood Pressure Mean [Right Arm] Blood Pressure Source [Right Arm] Blood Pressure Position [Right Arm] 02 Sat by Pulse Oximetry 95 95 92 L Oxygen Delivery Method Lab Data Lab Results 06/21/23 11:52: SARS-CoV-2 (PCR) Detected A, Influenza A Untype (PCR) Not detected, Influenza Type B (PCR) Not detected 06/21/23 11:55: WBC 15.5 H, RBC 4.44 L, Hgb 13.6 L, Hct 41.1 L, MCV 92.5, MCH 30.6, MCHC 33.1, RDW 13.6, Plt Count 215, MPV 8.4, Neut % (Auto) 88.6 H, Lymph % (Auto) 4.6 L, Roberts % (Auto) 6.1, Eos % (Auto) 0.6, Baso % (Auto) 0.2, Neut # (Auto) 13.8 H, Lymph # (Auto) 0.7, Roberts # (Auto) 0.9, Eos # (Auto) 0.1, Baso # (Auto) 0.0, Total Counted 100, Neutrophils % (Manual) 81 H, Band Neutrophils % 7.0, Lymphocytes % (Manual) 3 L, Monocytes % (Manual) 9, Platelet Estimate Normal, RBC Morphology Normal, Sodium 135 L, Potassium 4.3, Chloride 104, Carbon Dioxide 27, Anion Gap 8.3, BUN 19, Creatinine 1.30 H, Estimated Creat Clear 47, Estimated GFR 54 L, Est GFR ( Amer) 65, Glucose 142 H, Calcium 8.7, Total Bilirubin 0.8, AST 35, ALT 20, Alkaline Phosphatase 100, Troponin I < 0.01, NT-Pro-B Natriuret Pep 463 H, Total Protein 7.2, Albumin 4.0, Globulin 3.2, Albumin/Globulin Ratio 1.3 06/21/23 12:05: Lactate 1.4 06/21/23 14:14: Urine Color Yellow, Urine Appearance Clear, Urine pH 6.5, Ur Specific [place] 1.015, Urine Protein Negative, Urine Glucose (UA) Negative, Urine Ketones Negative, Urine Blood Negative, Urine Nitrate Negative, Urine Bilirubin Negative, Urine Urobilinogen 0.2, Ur Leukocyte Esterase Negative 06/21/23 11:55 06/21/23 11:55 Orders (Tests/Meds): ED MEDICATIONS Generic Name Dose Route Start Last Admin Trade Name Freq PRN Reason Stop Dose Admin Vancomycin/PEG/NADA/Lysine/Water 1.25 gm in 250 mls @ 125 mls/hr 06/21/23 13:00 06/21/23 14:11 Vancomycin 1.25gm/250ml (Peg) Premix IV 07/01/23 12:59 125 mls/hr Q24H DAGOBERTO Administration Discontinued Medications Generic Name Dose Route Start Last Admin Trade Name Freq PRN Reason Stop Dose Admin Lactated Ringer's 1,910 mls @ 955 mls/hr 06/21/23 12:15 06/21/23 12:19 Lactated Ringer's 1000 Ml Bag 30 ml/kg infuse over 2 hr (1910 ml) 06/21/23 14:14 955 mls/hr IV Administration .Q2H ONE Cefepime HCl 2 gm/ Sodium 100 mls @ 200 mls/hr 06/21/23 12:35 06/21/23 13:19 Chloride IV 02/07/24 13:04 200 mls/hr ONCE ONE Administration Miscellaneous 1 each 06/21/23 12:45 06/21/23 14:47 Vancomycin Consult Request NOTAPPLIC 07/21/23 12:44 Not Given CONSULT PHARMACY DAGOBERTO ORDERS Category Date Time Status CXR --portable [XR chest portable] Stat Exams 06/21/23 12:15 Taken Brain Natriuretic Peptide Stat Lab 06/21/23 11:55 Completed CBC w/Auto Diff [Complete Blood Count Auto Diff] Stat Lab 06/21/23 11:55 Completed CMP [Comprehensive Metabolic Panel] Stat Lab 06/21/23 11:55 Completed Lactic Acid Stat Lab 06/21/23 12:05 Completed Rapid PCR Covid and Flu A/B Stat Lab 06/21/23 11:52 Completed Trop I [Troponin I] Stat Lab 06/21/23 11:55 Completed Troponin I Q3H Lab 06/21/23 15:30 Ordered Urinalysis and Microscopic Stat Lab 06/21/23 14:14 Results Blood Culture Stat Micro 06/21/23 12:45 Received ECG initial Bess[place] Routine Y 06/21/23 12:42 Completed Medical Decision Narrative: 77-year-old male history of hypertension, hyperlipidemia, CAD on Plavix, CHF presenting with generalized weakness. Patient states that he has had fever, with generalized weakness, runny nose, cough and decreased appetite for a couple of days. States that he has not been eating or drinking much at all. Today, he came to the emergency department because he tried to take a warm shower with his symptoms and sat in shower chair. Was largely unable to get himself out of the shower chair. Once able to finally stand up, called family to take him to the emergency department. Cough is productive of brownish sputum, no nausea vomiting, diarrhea, constipation, abdominal pain, chest pain, shortness of breath, or any other concerns. History was obtained via conversation with patient. On arrival, patient hemodynamically stable, alert, oriented x4, appropriate, GCS 15, moving all extremities spontaneously, pupils equal and reactive to light. Full physical exam performed and significant for well-appearing male in no acute distress. He is tachycardic and hypotensive. Nontachypneic. Lungs are clear to auscultation bilaterally. Cardiac exam otherwise normal. No lower extremity edema. No abdominal tenderness. Patient neurologically intact Differential includes pneumonia, UTI, viral syndrome, dehydration, other metabolic, ACS, [place], among others. Patient was given vancomycin, cefepime, LR for symptomatic management and correction of underlying abnormalities. Workup independently interpreted and significant for Leukocytosis 15.5 with neutrophilic shift. WILLY 1.3 creatinine. Otherwise nonactionable chemistry. Lactate negative at 1.4. Troponin negative, BNP nonactionable. Patient is COVID-positive. Chest x-ray without acute cardiopulmonary airspace disease. See radiology read for full review of final results. Independent interpretation of EKG shows sinus tachycardia 106 beats a minute with T wave inversions in aVL, but no reciprocal change. NM, QRS, QT intervals within normal limits. [place] leftward. On reevaluation, patient resting comfortably in bed, but saturations between 90 and 95%. Patient's primary care provider, Dr. Aguilar, was contacted for admission. Given patient presentation, workup, history, this most likely represents COVID-19 complicated by hypoxemic respiratory failure, dehydration, hypotension. Because patient high risk for clinical decompensation, deemed appropriate for inpatient admission. Results were relayed to patient who voiced understanding and patient was agreeable to inpatient admission and management. Patient was admitted to the hospital for further definitive management. Critical Care Critical Care Time Critical Care Time: No
[2023-06-21 12:36] LABS: Basophils % 0.2 % (0.1-2.0); Eosinophils # 0.1 K/mm3 (0.0-0.4); Eosinophils % 0.6 % (0.1-12.0); Hematocrit 41.1 % (42.0-52.0); Hemoglobin 13.6 g/dL (14.1-18.0); Lymphocytes # 0.7 K/mm3 (0.7-4.5); Lymphocytes % 4.6 % (10-50); Mean Corpuscular HGB Conc 33.1 g/dL (31.8-35.4); Mean Corpuscular Hemoglobin 30.6 pg (27.0-31.2); Mean Corpuscular Volume 92.5 fl (80-94); Mean Platelet Volume 8.4 fl (7.4-10.4); Monocytes # 0.9 K/mm3 (0.1-1.0); Monocytes % 6.1 % (1.7-9.3); Neutrophils # 13.8 K/mm3 (1.8-7.8); Neutrophils % 88.6 % (37.0-80.0); Platelet Count 215 K/mm3 (142-424); Red Blood Count 4.44 M/mm3 (4.60-6.20); Red Cell Distribution Width 13.6 % (11.5-17.5); White Blood Count 15.5 K/mm3 (4.8-10.8)
[2023-06-21 12:37] LABS: Chloride 104 mmol/L (98-107)
[2023-06-21 12:38] LABS: Potassium 4.3 mmoL/L (3.5-5.1); Sodium 135 mmol/L (136-145)
[2023-06-21 12:40] LABS: Alanine Aminotransferase 20 U/L (12-78); Albumin/Globulin Ratio 1.3 (1.1-1.8); Alkaline Phosphatase 100 U/L (38-126); Anion Gap 8.3 mEq/L (5-15); Aspartate Amino Transferase 35 U/L (17-59); Bilirubin,Total 0.8 mg/dl (0.2-1.3); Blood Urea Nitrogen 19 mg/dl (9-20); Carbon Dioxide 27 mmol/L (22.0-30.0); Creatinine Clearance Estimated 47 mL/min (50-200); Estimated Glomerular Filt Rate 54 ml/min (>60); GFR (African American) 65 ML/MIN (>60); Globulin 3.2 g/dL (1.3-3.2); Total Protein,Serum 7.2 g/dl (6.3-8.2)
[2023-06-21 12:41] LABS: Calcium 8.7 mg/dl (8.4-10.2); Glucose 142 mg/dl (74-100); MANUAL DIFFERENTIAL MANUAL DIFFERENTIAL (MANUAL DIFF)
--- NOTE | 2023-06-21 12:42 | ECG_ITS ---
APPROVED REPORT Exam: Resting ECG HR:106 bpm ECG Measurements Heart Rate 106 AXES IN 218 P 64 QRSd 109 QRS -65 QT 336 T 88 QTc 398 Conclusion SINUS TACHYCARDIA WITH FIRST DEGREE AV BLOCK INCOMPLETE RIGHT BUNDLE BRANCH BLOCK [90+ ms QRS DURATION, TERMINAL R IN V1/V2, 40+ ms S IN I/aVL/V4/V5/V6] LEFT ANTERIOR FASCICULAR BLOCK [QRS AXIS <= -45, QR IN I, RS IN II] MINIMAL ST DEPRESSION [0.025+ mV ST DEPRESSION] ABNORMAL ECG UNCONFIRMED REPORT Electronically signed by : Simón Henson MD 06/21/2023 21:45:04
[2023-06-21 12:50] LABS: Lactic Acid 1.4 mmol/L (0.7-2.1)
[2023-06-21 12:57] LABS: Influenza A, PCR Not Detected (NotDetected); Influenza B, PCR Not Detected (NotDetected)
[2023-06-21 13:04] LABS: Troponin I < 0.01 ng/ml (0.00-0.034)
--- NOTE | 2023-06-21 13:04 | EXP.PHA.CONS ---
Pharmacy Consult Date: 06/21/23 Time: 13:04 Referring provider: DR. CARRANZA Reason for Consult:: VANCOMYCIN DOSING Allergies Allergy/AdvReac Type Severity Reaction Status Date / Time No Known Allergies Allergy Verified 05/04/22 10:50 Home Medications Medication Instructions Recorded Confirmed Type atorvastatin 20 mg tablet 20 mg PO DAILY hld 07/15/19 05/04/22 History clopidogrel 75 mg tablet 75 mg PO DAILY Blood thinner 07/15/19 05/04/22 History gemfibrozil 600 mg tablet 600 mg PO DAILY hld 07/15/19 05/04/22 History losartan 50 mg-hydrochlorothiazide 1 tab PO DAILY Fluid 07/15/19 05/04/22 History 12.5 mg tablet aspirin 81 mg capsule 81 mg PO DAILY CAD 04/22/22 05/04/22 History New Prescriptions to Start Prescriptions: Height: 1.68 m Weight: 67.132 kg Laboratory Results:: Laboratory Results - last 24 hr 06/21/23 11:55: WBC 15.5 H, RBC 4.44 L, Hgb 13.6 L, Hct 41.1 L, MCV 92.5, MCH 30.6, MCHC 33.1, RDW 13.6, Plt Count 215, MPV 8.4, Neut % (Auto) 88.6 H, Lymph % (Auto) 4.6 L, [place] % (Auto) 6.1, Eos % (Auto) 0.6, Baso % (Auto) 0.2, Neut # (Auto) 13.8 H, Lymph # (Auto) 0.7, [place] # (Auto) 0.9, Eos # (Auto) 0.1, Baso # (Auto) 0.0, Sodium 135 L, Potassium 4.3, Chloride 104, Carbon Dioxide 27, Anion Gap 8.3, BUN 19, Creatinine 1.30 H, Estimated Creat Clear 47, Estimated GFR 54 L, Est GFR ( Amer) 65, Glucose 142 H, Calcium 8.7, Total Bilirubin 0.8, AST 35, ALT 20, Alkaline Phosphatase 100, Total Protein 7.2, Albumin 4.0, Globulin 3.2, Albumin/Globulin Ratio 1.3 06/21/23 12:05: Lactate 1.4 Medical History: Medical History (Updated 11/26/22 @ 12:46 by Benny Burgess MD) Congestive heart failure Hyperlipidemia Assessment and Plan Assessment and plan all Dx Assessment and Plan for all problems:: Pharmacokinetic dosing service Objective: Patient: Floor: Age: 77 yo Serum creatinine: 1.3 mg/dL Height: 66.0 Inches Weight (kg): 67.1 Assessment: IBW (kg): 63.80 Dosing wt(kg): 67.1 Estimated Creatinine clearance (ml/min): 44.3 CRCL method: Cockcroft and Gault using ibw(default). Drug selected: Vancomycin Loading dose (mg): 0 Vd (liters): 53.7 (factor used: 0.8 L/kg) Jaspal (hr-1): 0.041 Half life (hrs): 16.91 Recommended dose: 1250 mg Interval: 24 hrs Infusion time (hrs): 2.0 Predicted peak (mcg/mL): 35.7 Predicted trough (mcg/mL): 14.49 Total body weight is being used for vancomycin dosing. Recommendations: Give Vancomycin 1250 mg q 24 hrs with an expected Cpeak of 35.7 mcg/ml and an expected Ctrough of 14.49 mcg/ml ----Vanco only - ignore for aminoglycosides----- CLvanco= 2.20 L/hr AUC 0-24 /ROLLY Data: ROLLY 0.5 mcg/mL: AUC/ROLLY: 1136.4 ROLLY 1.0 mcg/mL: AUC/ROLLY: 568.2 --------- ROLLY 1.5 mcg/mL: AUC/ROLLY: 378.8 ROLLY 2.0 mcg/mL: AUC/ROLLY: 284.1
[2023-06-21 13:10] LABS: NT Pro Brain Natriuretic Pep. 463 pg/mL (0-450)
[2023-06-21] MEDS: CEFEPIME HCL 2 GM in 0.9 % SODIUM CHLORIDE 100 ML IV (13:19)
[2023-06-21 13:23] LABS: Coronavirus 19, PCR Detected (NotDetected)
[2023-06-21 13:59] LABS: Lymphocytes % 3 % (10-50); Monocytes % 9 % (2-9); Neutrophils % 81 % (42-76); Total Cells Counted 100
[2023-06-21 14:01] LABS: Platelet Estimate Normal; RBC Morphology Normal
[2023-06-21] MEDS: VANCOMYCIN/WATER FOR INJ (PEG) 1.25 GM/250 ML PIGGYBACK IV (14:11)
[2023-06-21 14:19] LABS: Microscopic, Urine URINE MICROSCOPIC (MICROSCOPIC)
[2023-06-21 14:50] LABS: Appearance,Urine CLEAR (Clear); Bilirubin,Urine Negative (Negative); Blood, Urine Negative (Negative); Color,Urine YELLOW (Yellow); Glucose,Urine (UA) Negative (Negative); Ketones,Urine Negative (Negative); Leukocyte Esterase,Urine Negative (Negative); Nitrate,Urine Negative (Negative); PH,Urine 6.5 (5.0-8.5); Protein,Urine Negative (Negative); Specific Gravity, Urine 1.015 (1.005-1.030); Urobilinogen,Urine 0.2 EU/dl (0.2)
--- NOTE | 2023-06-21 14:57 | PC.NURSE ---
page made to minerva who is screwhead stoner and polisher for dr quick
--- NOTE | 2023-06-21 15:01 | PC.NURSE ---
onphone with minerva
[2023-06-21 15:07] LABS: Squamous Epithelial Cell,Urine Occasional #/hpf (0-5)
--- NOTE | 2023-06-21 15:40 | PC.NURSE ---
report called to second floor
--- NOTE | 2023-06-21 16:04 | PC.NURSE ---
Dr Ayala at bs
[2023-06-21] MEDS: DEXAMETHASONE 4MG/ML 1ML VIAL 10 MG IV (16:26)
--- NOTE | 2023-06-21 17:16 | P.HP_ITS ---
History of Present Illness *Admission Date: 06/21/23 *Reason for visit:: shortness of breath *History of present illness: 77-year-old male history of hypertension, hyperlipidemia, CAD on Plavix, CHF presenting with generalized weakness. Patient states that he has had fever, with generalized weakness, runny nose, cough and decreased appetite for a couple of days. States that he has not been eating or drinking much at all. Today, he came to the emergency department because he tried to take a warm shower with his symptoms and sat in shower chair. Was largely unable to get himself out of the shower chair. Once able to finally stand up, called family to take him to the emergency department. Cough is productive of brownish sputum, no nausea vomiting, diarrhea, constipation, abdominal pain, chest pain, shortness of breath, or any other concerns. History was obtained via conversation with patient. (above as per ER physician) The patient was tachycardic and hypotensive when he arrived in the emergency room. His white blood cell count was elevated as was his renal function and he was given vancomycin, cefepime, and IV fluids. His COVID test returned positive. His chest x-ray did not show pneumonia. He was admitted for hypoxic respiratory failure, dehydration, and hypotension. [facility] Disclaimer: The information contained in this section may have been updated after the patient was seen, as this information can be updated by other users. Medical History (Updated 06/21/23 @ 17:24 by JESS Medina) Carotid stenosis Chronic back pain Congestive heart failure History of kidney stones History of pericarditis History of TIA (transient ischemic attack) Hyperlipidemia Hypertension Surgical History (Updated 06/21/23 @ 17:23 by JESS Medina) History of colonoscopy History of left knee surgery History of rotator cuff surgery History of tonsillectomy S/P insertion of spinal cord stimulator Family History (Updated 06/21/23 @ 17:23 by JESS Medina) No significant family history Diabetes Social History (Updated 06/21/23 @ 16:43 by Shasta Espinosa RN) Smoking Status: Former smoker alcohol intake: never substance use type: denies use current occupational status: retired Travel in the last 8 weeks: None Review of Systems Constitutional Constitutional: Reports body ache(s), Denies chills, Reports fatigue, Denies fever(s), Denies headache(s) and Reports weakness Eyes Eyes: Denies blurry vision and Denies diplopia ENT Ears, Nose, Mouth, and Throat: Denies headache(s), Reports nasal congestion, Reports sore throat and Denies vertigo *Cardiovascular Cardiovascular: Denies chest pain and Denies dyspnea *Respiratory Respiratory: Reports cough and Denies dyspnea *Gastrointestinal Gastrointestinal: Denies abdominal pain, Denies loose stools, Denies nausea and Denies vomiting *Genitourinary Genitourinary: Denies difficulty urinating and Denies dysuria *Musculoskeletal Musculoskeletal: Reports myalgias *Neurologic Neurologic: Denies headache(s), Denies vertigo and Reports weakness Endocrine Endocrine: Reports fatigue Meds Home Medications and Allergies Home Medications Medication Instructions Recorded Confirmed Type atorvastatin 20 mg tablet 20 mg PO DAILY hld 07/15/19 06/21/23 History clopidogrel 75 mg tablet 75 mg PO DAILY Blood thinner 07/15/19 06/21/23 History gemfibrozil 600 mg tablet 600 mg PO DAILY hld 07/15/19 06/21/23 History losartan 50 mg-hydrochlorothiazide 1 tab PO DAILY Fluid 07/15/19 06/21/23 History 12.5 mg tablet aspirin 81 mg capsule 81 mg PO DAILY CAD 04/22/22 06/21/23 History New Prescriptions to Start Prescriptions: Allergies Allergy/AdvReac Type Severity Reaction Status Date / Time No Known Allergies Allergy Verified 06/21/23 16:34 Exam Data for Last 24 hours Vital signs and Labs for Last 24 Hours: Temp Pulse Resp BP Pulse Ox O2 Del Method 98.0 F 93 H 15 111/63 96 Room Air 06/21/23 16:18 06/21/23 16:18 06/21/23 16:18 06/21/23 16:18 06/21/23 16:16 06/21/23 16:16 Laboratory Results - last 24 hr 06/21/23 11:52: SARS-CoV-2 (PCR) Detected A, Influenza A Untype (PCR) Not detected, Influenza Type B (PCR) Not detected 06/21/23 11:55: WBC 15.5 H, RBC 4.44 L, Hgb 13.6 L, Hct 41.1 L, MCV 92.5, MCH 30.6, MCHC 33.1, RDW 13.6, Plt Count 215, MPV 8.4, Neut % (Auto) 88.6 H, Lymph % (Auto) 4.6 L, [place] % (Auto) 6.1, Eos % (Auto) 0.6, Baso % (Auto) 0.2, Neut # (Auto) 13.8 H, Lymph # (Auto) 0.7, [place] # (Auto) 0.9, Eos # (Auto) 0.1, Baso # (Auto) 0.0, Total Counted 100, Neutrophils % (Manual) 81 H, Band Neutrophils % 7.0, Lymphocytes % (Manual) 3 L, Monocytes % (Manual) 9, Platelet Estimate Normal, RBC Morphology Normal, Sodium 135 L, Potassium 4.3, Chloride 104, Carbon Dioxide 27, Anion Gap 8.3, BUN 19, Creatinine 1.30 H, Estimated Creat Clear 47, Estimated GFR 54 L, Est GFR ( Amer) 65, Glucose 142 H, Calcium 8.7, Total Bilirubin 0.8, AST 35, ALT 20, Alkaline Phosphatase 100, Troponin I < 0.01, NT-Pro-B Natriuret Pep 463 H, Total Protein 7.2, Albumin 4.0, Globulin 3.2, Albumin/Globulin Ratio 1.3 06/21/23 12:05: Lactate 1.4 06/21/23 14:14: Urine Color Yellow, Urine Appearance Clear, Urine pH 6.5, Ur Specific [place] 1.015, Urine Protein Negative, Urine Glucose (UA) Negative, Urine Ketones Negative, Urine Blood Negative, Urine Nitrate Negative, Urine Bilirubin Negative, Urine Urobilinogen 0.2, Ur Leukocyte Esterase Negative, Urin e RBC None, Urine WBC None, Ur Squamous Epith Cells Occasional, Urine Bacteria None I & O for Last 24 hours: Intake & Output 06/19/23 06/20/23 06/21/23 06/22/23 11:59 11:59 11:59 11:59 Weight 148 lb 152 lb 3 oz Constitutional Constitutional: no acute distress *Routine HEENT Exam Head: Present normocephalic and atraumatic Eye: Present EOMI and PERRL ENT: Present mucous membranes moist *Routine Neck Exam Neck: Present supple and full ROM *Routine Respiratory Exam Respiratory: Present CTA bilaterally *Routine Cardiovascular Exam Cardiovascular: Present RRR *Routine Abdominal Exam Abdominal: Present soft and normoactive bowel sounds; Absent tenderness *Routine Rectal Exam Rectal:: deferred *Routine Genitalia Exam Genitalia:: deferred *Routine Extremities Exam Extremities: Absent cyanosis, clubbing or edema *Routine Skin Exam Skin: Present intact; Absent erythema *Routine Neurological Exam Neurological: Present alert and oriented X3 H&P: Result Impressions CXR - No active disease. Spinal stimulator is present. Assessment and Plan *Assessment and plan (1) COVID-19: Status: Acute Category: Medical Code(s): U07.1 - COVID-19 (2) Acute respiratory failure with hypoxemia: Status: Acute Category: Medical Code(s): J96.01 - Acute respiratory failure with hypoxia (3) Generalized weakness: Status: Acute Category: Medical Code(s): R53.1 - Weakness (4) Chronic back pain: Status: Acute Category: Medical Code(s): M54.9 - Dorsalgia, unspecified; G89.29 - Other chronic pain (5) Hypertension: Status: Acute Category: Medical Code(s): I10 - Essential (primary) hypertension (6) Hyperlipidemia: Status: Acute Category: Medical Code(s): E78.5 - Hyperlipidemia, unspecified Plan Patient is off of his oxygen with satisfactory saturations. He can likely discharge home tomorrow if he does well overnight. He has been started on abx and was given fluids and steroids. Dr. Ayala entry - Saw patient, agree with above note.
[2023-06-21 17:25] LABS: Troponin I 0.03 ng/ml (0.00-0.034)
--- NOTE | 2023-06-21 18:36 | PC.NURSE ---
Patient new admit with covid. Patient a&ox4 and vss.
[2023-06-21] MEDS: PHA TO NURSING INSTRUCTION 1 EACH NOTAPPLIC ×2 (18:44)
[2023-06-21] MEDS: GUAIFENESIN/DEXTROMETHORPHAN 200MG/20MG 10ML UDC 5 ML PO (20:36)
[2023-06-21] MEDS: FAMOTIDINE 20MG TABLET 20 MG PO (20:36)
--- NOTE | 2023-06-21 20:57 | PC.NURSE ---
home medications in room - offered to take to pharm to be packaged - patient stated wasn't right meds, he brought wrong ones, that his normal ones are at home
[2023-06-22 03:57] VITALS: BP 122/74; PULSE 93; RESP 18; TEMP 36.8; O2SAT 94; BMI 23.8
[2023-06-22 07:53] VITALS: BP 115/43; PULSE 95; RESP 18; TEMP 36.7; O2SAT 95
--- NOTE | 2023-06-22 08:58 | P.PN_ITS ---
Subjective *Date: 06/22/23 *Time: 08:58 Interval history: Patient is feeling much better today. He is up and about in his room and has not required oxygen since he has been on the 2nd floor. He wants to go home. Medical Exam Vital signs and Labs for Last 24 Hours: Vital Signs Temp Pulse Pulse Resp BP BP Pulse Ox 06/22/23 07:53 98.1 F 95 H 18 115/43 L 95 06/22/23 06:14 06/22/23 04:53 06/22/23 03:57 98.3 F 93 H 18 122/74 94 L 06/22/23 03:00 06/21/23 23:57 98.9 F 98 H 18 107/61 L 94 L 06/22/23 00:41 06/21/23 22:40 06/21/23 21:00 06/21/23 20:33 97.9 F 99 H 18 145/75 H 95 06/21/23 19:35 06/21/23 16:16 98.2 F 100 H 18 123/67 96 06/21/23 16:10 93 H 111/63 95 06/21/23 16:00 95 H 120/54 L 95 06/21/23 15:50 94 H 118/69 95 06/21/23 15:20 92 H 109/57 L 93 L 06/21/23 15:10 90 103/57 L 92 L 06/21/23 15:00 98 H 90/52 L 95 06/21/23 14:50 93 H 103/57 L 95 06/21/23 16:18 98.0 F 93 H 15 111/63 06/21/23 14:40 93 H 99/53 L 92 L 06/21/23 14:30 99 H 117/63 95 06/21/23 14:21 100 H 104/60 L 95 06/21/23 14:00 97 H 20 102/53 L 93 L 06/21/23 13:31 107 H 20 75/32 L 95 06/21/23 13:00 102 H 20 92/51 L 94 L 06/21/23 12:40 111 H 103/62 L 93 L 06/21/23 12:30 140 H 87/59 L 93 L 06/21/23 12:20 91/50 L 06/21/23 12:00 147 H 92/53 L 94 L 02/07/24 11:50 147 H 77/49 L 94 L 06/21/23 11:42 99.3 F 147 H 18 75/44 L 94 L O2 Del Method 06/22/23 07:53 Room Air 06/22/23 06:14 Room Air 06/22/23 04:53 Room Air 06/22/23 03:57 Room Air 06/22/23 03:00 Room Air 06/21/23 23:57 Room Air 06/22/23 00:41 Room Air 06/21/23 22:40 Room Air 06/21/23 21:00 Room Air 06/21/23 20:33 Room Air 06/21/23 19:35 Room Air 06/21/23 16:16 Room Air 06/21/23 16:10 06/21/23 16:00 06/21/23 15:50 06/21/23 15:20 06/21/23 15:10 06/21/23 15:00 06/21/23 14:50 06/21/23 16:18 06/21/23 14:40 06/21/23 14:30 06/21/23 14:21 06/21/23 14:00 06/21/23 13:31 06/21/23 13:00 06/21/23 12:40 06/21/23 12:30 06/21/23 12:20 06/21/23 12:00 06/21/23 11:50 06/21/23 11:42 Room Air Intake and Output 06/21/23 06/22/23 06/22/23 19:59 03:59 11:59 Intake Total 270 / 890 370 / 890 250 / 890 Output Total 0 / 0 0 / 0 Balance 270 / 890 370 / 890 250 / 890 Intake: Intake, Oral Amount 270 / 880 360 / 880 250 / 880 Intake, Other Amount 10 10 Output: Output, Urine Amount 0 / 0 0 / 0 Other: Intake, Other Source Saline Solution Number of Unmeasured Voids 1 1 Weight 152 lb 3 oz 148 lb 6.4 oz Patient Weight 06/22/23 11:59 Weight 148 lb 6.4 oz Laboratory Results - last 24 hr 06/21/23 11:52: SARS-CoV-2 (PCR) Detected A, Influenza A Untype (PCR) Not detected, Influenza Type B (PCR) Not detected 06/21/23 11:55: WBC 15.5 H, RBC 4.44 L, Hgb 13.6 L, Hct 41.1 L, MCV 92.5, MCH 30.6, MCHC 33.1, RDW 13.6, Plt Count 215, MPV 8.4, Neut % (Auto) 88.6 H, Lymph % (Auto) 4.6 L, [place] % (Auto) 6.1, Eos % (Auto) 0.6, Baso % (Auto) 0.2, Neut # (Auto) 13.8 H, Lymph # (Auto) 0.7, [place] # (Auto) 0.9, Eos # (Auto) 0.1, Baso # (Auto) 0.0, Total Counted 100, Neutrophils % (Manual) 81 H, Band Neutrophils % 7.0, Lymphocytes % (Manual) 3 L, Monocytes % (Manual) 9, Platelet Estimate Normal, RBC Morphology Normal, Sodium 135 L, Potassium 4.3, Chloride 104, Carbon Dioxide 27, Anion Gap 8.3, BUN 19, Creatinine 1.30 H, Estimated Creat Clear 47, Estimated GFR 54 L, Est GFR ( Amer) 65, Glucose 142 H, Calcium 8.7, Total Bilirubin 0.8, AST 35, ALT 20, Alkaline Phosphatase 100, Troponin I < 0.01, NT-Pro-B Natriuret Pep 463 H, Total Protein 7.2, Albumin 4.0, Globulin 3.2, Albumin/Globulin Ratio 1.3 06/21/23 12:05: Lactate 1.4 06/21/23 14:14: Urine Color Yellow, Urine Appearance Clear, Urine pH 6.5, Ur Specific [place] 1.015, Urine Protein Negative, Urine Glucose (UA) Negative, Urine Ketones Negative, Urine Blood Negative, Urine Nitrate Negative, Urine Bilirubin Negative, Urine Urobilinogen 0.2, Ur Leukocyte Esterase Negative, Urine RBC None, Urine WBC None, Ur Squamous Epith Cells Occasional, Urine Bacteria None 06/21/23 16:51: Troponin I 0.03 I & O for Labs for Last 24 Hours: Intake & Output 06/19/23 06/20/23 06/21/23 06/22/23 11:59 11:59 11:59 11:59 Intake Total 890 / 890 Output Total 0 / 0 Balance 890 / 890 Weight 148 lb 148 lb 6.4 oz Constitutional: Present no acute distress Respiratory: Present CTA bilaterally Cardiac: Present Reg Rate and Rhythm GI: Present soft and normal bowel sounds; Absent distention or tenderness Extremities: Absent edema, clubbing or cyanosis Skin: Present intact Neuro: Present alert and awake Assessment and Plan *Assessment and plan (1) COVID-19: Status: Acute Category: Medical Code(s): U07.1 - COVID-19 (2) Acute respiratory failure with hypoxemia: Status: Acute Category: Medical Code(s): J96.01 - Acute respiratory failure with hypoxia (3) Generalized weakness: Status: Acute Category: Medical Code(s): R53.1 - Weakness (4) Chronic back pain: Status: Acute Category: Medical Code(s): M54.9 - Dorsalgia, unspecified; G89.29 - Other chronic pain (5) Hypertension: Status: Acute Category: Medical Code(s): I10 - Essential (primary) hypertension (6) Hyperlipidemia: Status: Acute Category: Medical Code(s): E78.5 - Hyperlipidemia, unspecified Plan Patient is stable to be discharged home today. Will discuss with Dr. Aguilar.
--- NOTE | 2023-06-22 09:58 | HMH.PHAINT1 ---
Pharmacy Intervention Comments: Reviewed and confirmed all medications with patient after comparing to external fill history.
--- NOTE | 2023-06-23 13:19 | CARE MANAGER ---
Contacted patient related to hospital discharge. He did pick out hand his medications and is aware of follow up appointment. Denies any questions or concerns. HELGA Caraballo
--- NOTE | 2023-06-29 13:32 | EXP.DC.SUM ---
General Admission date:: 06/21/23 Discharge date: 06/22/23 HPI HPI HPI: 77-year-old male history of hypertension, hyperlipidemia, CAD on Plavix, CHF presenting with generalized weakness. Patient states that he has had fever, with generalized weakness, runny nose, cough and decreased appetite for a couple of days. States that he has not been eating or drinking much at all. Today, he came to the emergency department because he tried to take a warm shower with his symptoms and sat in shower chair. Was largely unable to get himself out of the shower chair. Once able to finally stand up, called family to take him to the emergency department. Cough is productive of brownish sputum, no nausea vomiting, diarrhea, constipation, abdominal pain, chest pain, shortness of breath, or any other concerns. History was obtained via conversation with patient. (above as per ER physician) The patient was tachycardic and hypotensive when he arrived in the emergency room. His white blood cell count was elevated as was his renal function and he was given vancomycin, cefepime, and IV fluids. His COVID test returned positive. His chest x-ray did not show pneumonia. He was admitted for hypoxic respiratory failure, dehydration, and hypotension. Hospital Course Hospital Course Hospital Course: The patient's CXR showed nothing acute. He was able to be weaned off of his oxygen with satisfactory saturations. He was started on antibiotics and was given IVF's and steroids. By 06/22/23, he was feeling well and was stable to discharge home. A prescription was sent for paxlovid, Zinc, and Vitamin C. He was also given dexamethasone 6mg bid for 5 days and cefdinir 300mg bid for 1 week. Exam Data for Last 24 hours Vital signs and Labs for Last 24 Hours: Temp Pulse Resp BP Pulse Ox O2 Del Method 98.1 F 95 H 18 115/43 L 95 Room Air 06/22/23 07:53 06/22/23 07:53 06/22/23 07:53 06/22/23 07:53 06/22/23 07:53 06/22/23 07:53 Narrative: Constitutional Constitutional: no acute distress *Routine HEENT Exam Head: Present normocephalic and atraumatic Eye: Present EOMI and PERRL ENT: Present mucous membranes moist *Routine Neck Exam Neck: Present supple and full ROM *Routine Respiratory Exam Respiratory: Present CTA bilaterally *Routine Cardiovascular Exam Cardiovascular: Present RRR *Routine Abdominal Exam Abdominal: Present soft and normoactive bowel sounds; Absent tenderness *Routine Rectal Exam Rectal:: deferred *Routine Genitalia Exam Genitalia:: deferred *Routine Extremities Exam Extremities: Absent cyanosis, clubbing or edema *Routine Skin Exam Skin: Present intact; Absent erythema *Routine Neurological Exam Neurological: Present alert and oriented X3 DS: Diagnosis Discharge Diagnosis (1) COVID-19: Status: Acute Code(s): U07.1 - COVID-19 (2) Acute respiratory failure with hypoxemia: Status: Resolved Code(s): J96.01 - Acute respiratory failure with hypoxia (3) Generalized weakness: Status: Resolved Code(s): R53.1 - Weakness (4) Chronic back pain: Status: Inactive Code(s): M54.9 - Dorsalgia, unspecified; G89.29 - Other chronic pain (5) Hypertension: Status: Acute Code(s): I10 - Essential (primary) hypertension (6) Hyperlipidemia: Status: Acute Code(s): E78.5 - Hyperlipidemia, unspecified Meds Home Medications and Allergies Home Medications Medication Instructions Recorded Confirmed Type clopidogrel 75 mg tablet 75 mg PO DAILY Blood thinner 07/15/19 06/21/23 History gemfibrozil 600 mg tablet 600 mg PO DAILY hld 07/15/19 06/21/23 History losartan 50 mg-hydrochlorothiazide 1 tab PO DAILY Fluid 07/15/19 06/21/23 History 12.5 mg tablet aspirin 81 mg capsule 81 mg PO DAILY CAD 04/22/22 06/21/23 History ascorbic acid (vitamin C) 500 mg 500 mg PO QID COVID 19 #60 tabs 06/22/23 Rx tablet (Vitamin C) atorvastatin 40 mg tablet 40 mg PO DAILY Cholesterol 06/22/23 06/22/23 History cefdinir 300 mg capsule 300 mg PO BID #14 caps 06/22/23 Rx dexamethasone 6 mg tablet 6 mg PO BID #10 tabs 06/22/23 Rx nirmatrelvir 150 mg-ritonavir 100 See Rx Instructions PO .COMPLEX 06/22/23 Rx mg tablets in a dose pack #20 tabs (Paxlovid) zinc acetate 50 mg (zinc) capsule 50 mg PO QID COVID 19 #60 caps 06/22/23 Rx New Prescriptions to Start Prescriptions: ascorbic acid (vitamin C) [Vitamin C] Jarod Aguilar cefdinir Jarod Aguilar dexamethasone Jarod Aguilar nirmatrelvir-ritonavir [Paxlovid] Jarod Aguilar zinc acetate Jarod Aguilar Allergies Allergy/AdvReac Type Severity Reaction Status Date / Time No Known Allergies Allergy Verified 06/21/23 16:34 Discharge Plan Disposition Patient Disposition: Home, Self-Care Condition: Fair Follow up Plan Follow up with: Jarod Aguilar MD [Primary Care Provider] - 07/06/23 2:15 pm Prescriptions/Medication Reconciliation: New Paxlovid 150-100 mg tablets,dose pack See Rx Instructions .ROUTE .COMPLEX Qty: 20 0RF Rx Instructions: take ONE 150 mg tablet of nirmatrelvir with ONE 100 mg tablet of ritonavir twice daily for 5 days. Do not take cholesterol medication during the course of Paxlovid cefdinir 300 mg capsule 300 mg PO BID Qty: 14 0RF zinc acetate 50 mg (zinc) capsule 50 mg PO QID Qty: 60 0RF ascorbic acid (vitamin C) [Vitamin C] 500 mg tablet 500 mg PO QID Qty: 60 0RF dexamethasone 6 mg tablet 6 mg PO BID Qty: 10 0RF Continued losartan-hydrochlorothiazide 50-12.5 mg tablet 1 tab PO DAILY gemfibrozil 600 mg tablet 600 mg PO DAILY clopidogrel 75 mg tablet 75 mg PO DAILY aspirin 81 mg Capsule 81 mg PO DAILY atorvastatin 40 mg tablet 40 mg PO DAILY Patient Comments: TAKE 1 TABLET BY MOUTH ONCE DAILY Discontinued minocycline 100 mg capsule 100 mg PO BID Patient Comments: TAKE 1 CAPSULE BY MOUTH TWICE DAILY Problem Reconciliation Problems Reviewed?: Yes Patient Discharge Instructions ACTIVITY: Limited activity DIET: regular diet Patient Instructions: DI for Muscle Weakness, DI for COVID-19 (Suspected or Confirmed ) Providers Primary Care Provider: Jarod Aguilar Admit Provider: Terrence Ayala Attending Provider: Jarod Aguilar
== END 2023-06-22 10:55 | disposition home or self-care (01) ==
LOC: ER 14:58 → 2ND 15:16
PROVIDERS: Admitting Provider Family Medicine; Emergency Provider Emergency Medicine; PCP Family Medicine; Visit Provider Family Medicine
DX: U07.1 COVID-19 (principal); J96.01 Acute respiratory failure with hypoxia; R53.1 Weakness; M54.9 Dorsalgia, unspecified; G89.29 Other chronic pain; I11.0 Hypertensive heart disease with heart failure; E78.5 Hyperlipidemia, unspecified; I50.9 Heart failure, unspecified; Z79.899 Other long term (current) drug therapy
CPT/HCPCS: 36415; 71045; 80053; 81001; 83605; 83880; 84484; 85007; 85025; 87040; 87070; 87205; 87636; 93005; 99285; G0378

== ENCOUNTER 2023-10-13 07:55 | Outpatient (CLI) | payer MEDICARE, BC, SELFPAY ==
--- NOTE | 2023-10-13 | CA_ITS ---
FINAL REPORT CLINICAL HISTORY: <50%bilateral ICA stenosis mild to moderate heterogenous plaque in bilateral bulbs. Bilateral vertebral arteries display antegrade flow. COMPARISON: None FINDINGS: RIGHT CAROTID: CCA PSV -51 cm/sec ICA PSV -117 cm/sec ICA/CCA PSV ratio -2.70. Comments: Moderate plaque disease is noted. LEFTCAROTID: CCA PSV -80. cm/sec ICA PSV -100. cm/sec ICA/CCA PSV ratio -1.86. Comments: Mild plaque disease is noted. Antegrade flow is seen within the vertebral arteries. IMPRESSION: Carotid stenosis classified less than 50% Reviewed, Interpreted and Dictated by Jarod Camacho MD Transcribed by Emilia Evans Authenticated and . [facility]
--- NOTE | 2023-10-13 08:23 | US_ITS ---
FINAL REPORT CLINICAL HISTORY: AORTIC ECTASIA,ABDOMINAL COMPARISON: None FINDINGS: ULTRASOUND ABDOMINAL AORTA Sagittal and transverse images with Doppler exam was performed of the aorta. There is no evidence of abdominal aortic aneurysm. The upper abdominal aorta is at the upper limits of normal in size measuring up to 2.6 cm. Mild calcified plaque disease is noted. Proximal iliac vessels are normal in caliber. Aorta is patent by Doppler exam without gross stenosis. IMPRESSION: Aorta at the upper limits of normal. Reviewed, Interpreted and Dictated by Jarod Camacho MD Transcribed by Emilia Evans Authenticated and [facility]
== END 2023-10-13 23:59 | disposition home or self-care (01) ==
LOC: RT 07:56
PROVIDERS: PCP Family Medicine; Visit Provider Family Medicine
DX: I65.23 Occlusion and stenosis of bilateral carotid arteries (principal); I77.811 Abdominal aortic ectasia
CPT/HCPCS: 76770; 93880

== ENCOUNTER 2023-10-16 08:06 | Outpatient (CLI) | payer MEDICARE, BC, SELFPAY ==
--- NOTE | 2023-10-16 08:10 | CT_ITS ---
FINAL REPORT CLINICAL HISTORY: H/O TOBACCO USE, former smoker, quit 4 years ago, smoked for 50 years 1.5ppd COMPARISON: 02/24/2022 FINDINGS: CTDI vol (mGy): 2.90 DLP: 100.[address] images of the chest were obtained using the low-dose protocol for screening. There are multiple mildly enlarged mediastinal lymph nodes, slightly worse from prior exam which is nonspecific, favor reactive. There is severe coronary artery calcifications. No axillary mass or adenopathy is identified. On the lung window images, there is mild emphysema and mild scarring. Calcified granulomas are seen in the left upper and left lower lobes. There is a 2 mm lateral left upper lobe nodule on image 24 which is stable. There is no new mass or nodule. IMPRESSION: 2 mm left upper lobe nodule, stable. No new mass or nodule. Lung RADS category 2S. Recommend 12 month followup low-dose CT for further evaluation. S qualifier: Severe coronary artery calcifications. Reviewed, Interpreted and Dictated by Zachery Clements III, MD Transcribed by Shama Box Authenticated and [facility]
== END 2023-10-16 23:59 | disposition home or self-care (01) ==
LOC: RAD 08:06
PROVIDERS: PCP Family Medicine; Visit Provider Family Medicine
DX: Z87.891 Personal history of nicotine dependence (principal)
CPT/HCPCS: 71271

== ENCOUNTER 2024-06-27 12:11 | Emergency (ER) | payer MEDICARE, BC, SELFPAY ==
[2024-06-27 12:21] VITALS: BP 96/57; PULSE 85; RESP 18; TEMP 36.7; O2SAT 94; BMI 24.1
--- NOTE | 2024-06-27 12:25 | ECG_ITS ---
APPROVED REPORT Exam: Resting ECG HR:74 bpm ECG Measurements Heart Rate 74 AXES AK 226 P 60 QRSd 110 QRS -59 QT 375 T 79 QTc 402 Conclusion SINUS RHYTHM WITH FIRST DEGREE AV BLOCK INCOMPLETE RIGHT BUNDLE BRANCH BLOCK [90+ ms QRS DURATION, TERMINAL R IN V1/V2, 40+ ms S IN I/aVL/V4/V5/V6] LEFT ANTERIOR FASCICULAR BLOCK [QRS AXIS <= -45, QR IN I, RS IN II] ABNORMAL ECG No STEMI Electronically signed by : HÉCTOR KEY, 06/28/2024 05:59:58
--- NOTE | 2024-06-27 12:29 | ED_ITS ---
<Statement entered by Nanci Cheung DO - 06/27/24 16:42> I was consulted by the DALJIT, and we discussed the complexity of the problems being addressed. I approved the treatment and management plan for this patient's care in the emergency department, thus performing a substantive portion of the medical decision making. Nanci Cheung DO Discharge Plan Disposition Patient Disposition: Home, Self-Care Condition: Good Prescriptions Prescriptions: No Action losartan-hydrochlorothiazide 50-12.5 mg tablet 1 tab PO DAILY gemfibrozil 600 mg tablet 600 mg PO DAILY clopidogrel 75 mg tablet 75 mg PO DAILY aspirin 81 mg Capsule 81 mg PO DAILY Paxlovid 150-100 mg tablets,dose pack See Rx Instructions .ROUTE .COMPLEX Qty: 20 0RF Rx Instructions: take ONE 150 mg tablet of nirmatrelvir with ONE 100 mg tablet of ritonavir twice daily for 5 days. Do not take cholesterol medication during the course of Paxlovid cefdinir 300 mg capsule 300 mg PO BID Qty: 14 0RF zinc acetate 50 mg (zinc) capsule 50 mg PO QID Qty: 60 0RF ascorbic acid (vitamin C) [Vitamin C] 500 mg tablet 500 mg PO QID Qty: 60 0RF dexamethasone 6 mg tablet 6 mg PO BID Qty: 10 0RF atorvastatin 40 mg tablet 40 mg PO DAILY Patient Comments: TAKE 1 TABLET BY MOUTH ONCE DAILY Referrals Follow up/Referrals: Jarod Aguilar MD [Primary Care Provider] - See instructions Activity Restrictions/Add. Instructions Additional Instructions/Restrictions: Rest. Please follow uop withCardiology. Please follow-up with your PCP within 7 days. Please return to the ED for any worsening of your condition. Clinical Impressions Clinical Impression: Chest pain Qualifiers: Chest pain type: unspecified Qualified Code(s): R07.9 - Chest pain, unspecified Instructions Patient Instructions: DI for Atypical Chest Pain Print Language Print Language: Romanian Discharge ED Provider: Ivan August General Chief Complaint: Chest Pain Stated Complaint: chest pain in the am, not now Time Seen by Provider: 06/27/24 12:30 Mode of Arrival: Ambulatory Source of Information: Patient Limitations: No Limitations Description of Symptoms (Recalled from ER Triage Doc. by RN): Pt states at 0800 he began to have mid to right sided chest pain that radiated to his neck. Pt states the pain let up on his way in to be seen. Denies a cardiac hx. History of Present Illness HPI narrative: 78-year-old male who presents to the ED with an abrupt onset of right-sided chest pain that lasted 2 hours and resolved on its own. Patient denies any history of DC. Denies any current complaints at this time. Related Data Home Medications ?Medication ?Instructions ?Recorded ?Confirmed clopidogrel 75 mg tablet 75 mg PO DAILY Blood thinner 07/15/19 06/27/24 gemfibrozil 600 mg tablet 600 mg PO DAILY hld 07/15/19 06/27/24 losartan 50 mg-hydrochlorothiazide 1 tab PO DAILY Fluid 07/15/19 06/27/24 12.5 mg tablet aspirin 81 mg capsule 81 mg PO DAILY CAD 04/22/22 06/27/24 atorvastatin 40 mg tablet 40 mg PO DAILY Cholesterol 06/22/23 06/27/24 Previous Rx's ?Medication ?Instructions ?Recorded ascorbic acid (vitamin C) 500 mg 500 mg PO QID COVID 19 #60 tabs 06/22/23 tablet (Vitamin C) cefdinir 300 mg capsule 300 mg PO BID #14 caps 06/22/23 dexamethasone 6 mg tablet 6 mg PO BID #10 tabs 06/22/23 nirmatrelvir 150 mg-ritonavir 100 See Rx Instructions PO .COMPLEX 06/22/23 mg tablets in a dose pack #20 tabs (Paxlovid) zinc acetate 50 mg (zinc) capsule 50 mg PO QID COVID 19 #60 caps 06/22/23 Allergies Allergy/AdvReac Type Severity Reaction Status Date / Time No Known Allergies Allergy Verified 06/21/23 16:34 [facility] Disclaimer: The information contained in this section may have been updated after the patient was seen, as this information can be updated by other users. Medical History (Updated 06/27/24 @ 15:44 by Radha Willard APRN) Chronic back pain History of TIA (transient ischemic attack) History of pericarditis Hypertension Carotid stenosis History of kidney stones Hypocalcemia Tubular adenoma of colon Congestive heart failure Hyperlipidemia Hemoptysis Right upper lobe pneumonia Surgical History (Updated 06/21/23 @ 17:23 by JESS Medina) History of colonoscopy History of tonsillectomy History of left knee surgery S/P insertion of spinal cord stimulator History of rotator cuff surgery Family History (Updated 06/21/23 @ 17:23 by JESS Medina) Other Diabetes No significant family history Social History (Updated 06/21/23 @ 16:43 by Shasta Espinosa RN) Smoking Status: Former smoker alcohol intake: never substance use type: denies use current occupational status: retired Travel in the last 8 weeks: None Have you lived/traveled outside US in past 30 days?: No Contact w/someone who lives/traveled outside US past 30 days?: No Exposure to someone with infectious disease in past 14 days?: No Do you have a fever (greater than 100.4 F or 38 C)?: No Have you tested positive for COVID-19: No Exposed to someone with COVID-19 in past 14 days?: No Do you have a sore throat?: No Do you have a cough?: No Do you have any weakness?: No Do you have any diarrhea?: No Are you experiencing any unusual bleeding?: No Do you have any muscle aches/pain?: No Do you have any abdominal pain?: No Are you experiencing loss of taste or smell?: No Other Medical History Have you received the Flu Vaccine for this season: No Have you received the Pneumonia Vaccine: No ROS Obtained: Yes Systems reviewed as appropriate & no additional complaints except as documented Physical Exam General General appearance: alert and in no apparent distress Head Head exam: atraumatic and normocephalic Eye Eye exam: Present normal appearance and PERRL ENT ENT exam: Present normal exam Neck Neck exam: Present normal inspection Chest Chest inspection: Present normal inspection and symmetric chest wall rise; Absent tenderness Respiratory Respiratory exam: Present normal lung sounds bilaterally Cardiovascular Cardiovascular exam: Present regular rate, normal rhythm and other (No chest wall tenderness) Abdominal Exam Abdominal exam: Present soft and normal bowel sounds; Absent tenderness Extremities Exam Extremities exam: Present normal inspection and full ROM Back Exam Back exam: Present normal inspection and full ROM Neurological Exam Neurological exam: Present alert and oriented X3 Psychiatric Psychiatric exam: Present normal affect and normal mood Skin Skin exam: Present warm and dry HEART Score HEART Score HEART Score assessment performed?: Yes History (anamnesis): Slightly suspicious ECG: Non-specific disturbance Age: >65 years Risk factors: 1-2 risk factors Troponin: </= normal limit HEART Score: 4 Critical Care Critical Care Time Critical Care Time: No Medical Decision Making Rickey Inquiry Pt receiving controlled substance: No Vital Signs Vital Signs: 06/27/24 12:21 06/27/24 13:00 06/27/24 14:00 Temperature 98.1 F Temperature Source Temporal Artery Scan Pulse Rate 73 67 Pulse Rate [Right] 85 Respiratory Rate 18 13 13 Blood Pressure 121/55 L 123/61 Blood Pressure [Right Arm] 96/57 L Blood Pressure Mean 95 Blood Pressure Mean [Right Arm] 70 Blood Pressure Source Blood Pressure Position Blood Pressure Position [Right Arm] Sitting 02 Sat by Pulse Oximetry 94 L 95 95 Oxygen Delivery Method Room Air Room Air 06/27/24 14:30 06/27/24 16:22 Temperature 98.0 F Temperature Source Pulse Rate 63 78 Pulse Rate [Right] Respiratory Rate 12 16 Blood Pressure 136/68 134/74 Blood Pressure [Right Arm] Blood Pressure Mean Blood Pressure Mean [Right Arm] Blood Pressure Source Automatic Cuff Blood Pressure Position Sitting Blood Pressure Position [Right Arm] 02 Sat by Pulse Oximetry 96 Oxygen Delivery Method Room Air Room Air Lab Data Labs: Lab Results 06/27/24 12:35: WBC 7.6, RBC 4.42 L, Hgb 13.2 L, Hct 40.1 L, MCV 90.7, MCH 29.9, MCHC 32.9, RDW 13.0, Plt Count 254, MPV 9.8, Neut % (Auto) 76.7, Lymph % (Auto) 13.4, [place] % (Auto) 7.5, Eos % (Auto) 1.6, Baso % (Auto) 0.5, Neut # (Auto) 5.9, Lymph # (Auto) 1.0, [place] # (Auto) 0.6, Eos # (Auto) 0.1, Baso # (Auto) 0.0, Sodium 140, Potassium 4.1, Chloride 104, Carbon Dioxide 28, Anion Gap 12.1, BUN 23 H, Creatinine 1.10, Estimated Creat Clear 55, Estimated GFR 65, Est GFR ( Amer) 79, Glucose 115 H, Calcium 8.6, Total Bilirubin 0.8, AST 32, ALT 19, Alkaline Phosphatase 61, Troponin I < 0.01, NT-Pro-B Natriuret Pep 121, Total Protein 7.1, Albumin 4.6, Globulin 2.5, Albumin/Globulin Ratio 1.8 06/27/24 15:28: Troponin I < 0.01 02/13/25 12:35 06/27/24 12:35 Response Orders (Tests/Meds): ORDERS Category Date Time Status CXR 2 view (NOT portable) [XR chest 2V] Stat Exams 06/27/24 12:35 Completed BNP [NT Pro Brain Natriuretic Pep.] Stat Lab 06/27/24 12:35 Completed CBC w/Auto Diff [Complete Blood Count Auto Diff] Stat Lab 06/27/24 12:35 Completed CMP [Comprehensive Metabolic Panel] Stat Lab 06/27/24 12:35 Completed Trop I [Troponin I] Stat Lab 06/27/24 12:35 Completed Troponin I Q3H Lab 06/27/24 15:28 Completed MDM Narrative Medical Decision Narrative: In summary, patient is a 78-year-old male PMHx TIA, pericarditis, HTN, HLD, history of pneumonia who presents to the emergency department for evaluation of sudden onset chest pain that started abruptly this morning, lasted 2 hours and resolved on its own. Patient states the chest pain was right-sided, ache that radiated up into the right side of his neck. He states that he takes a daily aspirin and blood thinner. Patient is compliant with his medication. He states that he follows with his PCP regularly. He denies having any recent stress test or echo. Denies history of DC. Patient denies fever, chills, body aches, headache, dizziness, posterior neck pain, shortness of breath, abdominal pain, nausea, vomiting. Upon initial evaluation, patient is hemodynamically stable and afebrile. He is alert, oriented and cooperative. His physical exam is unremarkable. Differential diagnosis includes ACS, dissection, pulmonary embolism, pneumonia, pneumothorax, atypical chest pain, infectious process, cardiac arrhythmia, among others. Initial workup will be conducted with hematologic labs, chest x-ray. I independently interpreted the EKG is sinus rhythm, rate 74, QT 402, no STEMI. Initial workup reviewed by me. CBC remarkable for WBC 7.6, stable H&H. CMP unremarkable for any actionable abnormalities. First troponin < 0.01. BNP 121. Second troponin < 0.01. Independent and informal interpretation of the chest x-ray remarkable for no acute cardiopulmonary process. See final read. Upon repeat evaluation, pt remained stable. He did not experience any chest pain while in the ED. Given this I feel the patient is safe to be discharged at this time. We discussed that he needs to make an appointment with cardiology for follow-up. I considered the utility of a chest CT however low risk for pulmonary embolism and patient is not experience chest pain while in the ED, no oxygen requirement, no respiratory distress I had an interactive discussion with the patient and , advised that workup in the ED is unremarkable. We discussed following up with cardiology. Advised him to follow-up with his PCP within 7 days. We discussed return precautions to the ED. Upon discharge, patient was hemodynamically stable and chest pain-free.
--- NOTE | 2024-06-27 12:35 | XR_ITS ---
FINAL REPORT CLINICAL HISTORY: right sided chest pain COMPARISON: 06/21/2023 FINDINGS: There are underlying emphysematous changes. No acute pulmonary density is present. No significant pleural effusion. There is no pneumothorax. The heart is normal in size. The mediastinum is unremarkable. IMPRESSION: Emphysema without acute process. Reviewed, Interpreted and Dictated by Jarod Camacho MD Transcribed by Blanca Paz Authenticated and [facility]
[2024-06-27 12:45] LABS: Basophils % 0.5 % (0.1-2.0); Eosinophils # 0.1 K/mm3 (0.0-0.4); Eosinophils % 1.6 % (0.1-12.0); Hematocrit 40.1 % (42.0-52.0); Hemoglobin 13.2 g/dL (14.1-18.0); Lymphocytes % 13.4 % (10-50); Mean Corpuscular HGB Conc 32.9 g/dL (31.8-35.4); Mean Corpuscular Hemoglobin 29.9 pg (27.0-31.2); Mean Corpuscular Volume 90.7 fl (80-94); Mean Platelet Volume 9.8 fl (7.4-10.4); Monocytes # 0.6 K/mm3 (0.1-1.0); Monocytes % 7.5 % (1.7-9.3); Neutrophils # 5.9 K/mm3 (1.8-7.8); Neutrophils % 76.7 % (37.0-80.0); Platelet Count 254 K/mm3 (142-424); Red Blood Count 4.42 M/mm3 (4.60-6.20); White Blood Count 7.6 K/mm3 (4.8-10.8)
[2024-06-27 13:00] VITALS: BP 121/55; PULSE 73; RESP 13; O2SAT 95
[2024-06-27 13:00] LABS: Albumin Level 4.6 g/dl (3.5-5.0); Chloride 104 mmol/L (98-107); Sodium 140 mmol/L (136-145)
[2024-06-27 13:01] LABS: Potassium 4.1 mmoL/L (3.5-5.1)
[2024-06-27 13:03] LABS: Alanine Aminotransferase 19 U/L (12-78); Albumin/Globulin Ratio 1.8 (1.1-1.8); Alkaline Phosphatase 61 U/L (38-126); Anion Gap 12.1 mEq/L (5-15); Aspartate Amino Transferase 32 U/L (17-59); Bilirubin,Total 0.8 mg/dl (0.2-1.3); Blood Urea Nitrogen 23 mg/dl (9-20); Carbon Dioxide 28 mmol/L (22.0-30.0); Creatinine Clearance Estimated 55 mL/min (50-200); Estimated Glomerular Filt Rate 65 ml/min (>60); GFR (African American) 79 ML/MIN (>60); Globulin 2.5 g/dL (1.3-3.2); Total Protein,Serum 7.1 g/dl (6.3-8.2)
--- NOTE | 2024-06-27 13:03 | PC.NURSE ---
pt to radiology
[2024-06-27 13:04] LABS: Calcium 8.6 mg/dl (8.4-10.2); Glucose 115 mg/dl (74-100)
[2024-06-27 13:16] LABS: NT Pro Brain Natriuretic Pep. 121 pg/mL (0-450)
--- NOTE | 2024-06-27 13:16 | PC.NURSE ---
ROUNDED ON THE PT. THE PT VOICES THAT HE DOES NOT NEED ANYTHING AT THIS TIME. CALL LIGHT IS WITHIN REACH OF THE PT.
[2024-06-27 13:19] LABS: Troponin I < 0.01 ng/ml (0.00-0.034)
[2024-06-27 14:00] VITALS: BP 123/61; PULSE 67; RESP 13; O2SAT 95
[2024-06-27 14:30] VITALS: BP 136/68; PULSE 63; RESP 12; O2SAT 96
--- NOTE | 2024-06-27 14:35 | PC.NURSE ---
ROUNDED ON THE PT. THE PT VOICES THAT HE DOES NOT NEED ANYTHING AT THIS TIME. CALL LIGHT IS WITHIN REACH OF THE PT.
[2024-06-27 16:17] LABS: Troponin I < 0.01 ng/ml (0.00-0.034)
[2024-06-27 16:22] VITALS: BP 134/74; PULSE 78; RESP 16; TEMP 36.7; O2SAT 99
== END 2024-06-27 16:25 | disposition home or self-care (01) ==
PROVIDERS: Nurse Practitioner; Emergency Provider Emergency Medicine; PCP Family Medicine
DX: R07.9 Chest pain, unspecified (principal)
CPT/HCPCS: 71046; 80053; 83880; 84484; 85025; 93005; 99284

== ENCOUNTER 2024-09-12 09:55 | Day surgery (SDC) | payer MEDICARE, BC, SELFPAY ==
[2024-09-02 10:12] VITALS: BMI 24.0
[2024-09-12 10:13] VITALS: BP 99/53; PULSE 85; RESP 18; TEMP 36.3; O2SAT 95
[2024-09-12] MEDS: LACTATED RINGERS 1000ML 1,000 ML 50 ML IV (10:22)
--- NOTE | 2024-09-12 10:40 | P.PNANES_ITS ---
[facility] Disclaimer: The information contained in this section may have been updated after the patient was seen, as this information can be updated by other users. Medical History Chronic back pain History of TIA (transient ischemic attack) History of pericarditis Hypertension Carotid stenosis History of kidney stones Hypocalcemia Tubular adenoma of colon Congestive heart failure Hyperlipidemia Hemoptysis Right upper lobe pneumonia Surgical History History of colonoscopy History of tonsillectomy History of left knee surgery S/P insertion of spinal cord stimulator History of rotator cuff surgery Family History Other Diabetes Social History Smoking Status: Former smoker alcohol intake: former substance use type: denies use current occupational status: retired Travel in the last 8 weeks?: None caffeine: Yes Have you lived/traveled outside US in past 30 days?: No Contact w/someone who lives/traveled outside US past 30 days?: No Exposure to someone with infectious disease in past 14 days?: No Do you have a fever (greater than 100.4 F or 38 C)?: No Have you tested positive for COVID-19?: No Exposed to someone with COVID-19 in past 14 days?: No Do you have a sore throat?: No Do you have a cough?: No Do you have any weakness?: No Are you experiencing any nausea/vomitting?: No Do you have any diarrhea?: No Are you experiencing any unusual bleeding?: No Do you have any muscle aches/pain?: No Do you have any abdominal pain?: No Are you experiencing loss of taste or smell?: No [facility] Anesthesia Checklist Patient Identification Patient Identification: Arm Band and Verbal (Name & ) Structural Data Admitted From: Home Planned Operative Procedure/s: colonoscopy Consent for Planned Operative Procedure(s) Verified: Yes Verified Documents: Surgical Consent NPO Status Verified Time NPO: 00:00 Chart Verification Results Verified: ECG Additional verifications Anesthesia Reactions: No Hx Blood Transfusions: No Blood Transfusion Reaction: No Airway Assessment Mallampati Score:: Class II C-Spine Mobility Assessed: Yes TMJ Mobility Assessed: No Dentition: Dentures-good fit Neurological Assessment Level of Consciousness: Awake, Alert and Appropriate Hx Seizures: No Numbness or tingling in extremities: No Anesthesia Plan Anesthesia Risk discussed: Yes Anesthesia Plan: Verified ASA Class: II Anesthesia Type: MAC
[2024-09-12 12:03] VITALS: O2SAT 99
--- NOTE | 2024-09-12 12:06 | EXP.HP ---
History of Present Illness *Admission Date: 09/12/24 *Reason for visit:: Personal history of adenomatous colon polyps *History of present illness: Mr. Goff is a 79-year-old gentleman who is here for follow-up surveillance colonoscopy secondary to a personal history of adenomatous colon polyps. The patient did have multiple polyps identified on colonoscopy with Dr. Will Taylor M.D. in April 2022 (41 adenomatous colon polyps) removed. The examination is deemed medically necessary for surveillance colonoscopy. The patient has been seen, interviewed and examined prior to the procedure by both myself and the anesthesia provider. [facility] Disclaimer: The information contained in this section may have been updated after the patient was seen, as this information can be updated by other users. Medical History (Updated 09/12/24 @ 12:07 by Duran Becker II, MD) Chronic back pain History of TIA (transient ischemic attack) History of pericarditis Hypertension Carotid stenosis History of kidney stones Hypocalcemia Tubular adenoma of colon Congestive heart failure Hyperlipidemia Hemoptysis Right upper lobe pneumonia Surgical History History of colonoscopy History of tonsillectomy History of left knee surgery S/P insertion of spinal cord stimulator History of rotator cuff surgery Family History Other Diabetes Social History Smoking Status: Former smoker alcohol intake: former substance use type: denies use current occupational status: retired Travel in the last 8 weeks?: None caffeine: Yes Have you lived/traveled outside US in past 30 days?: No Contact w/someone who lives/traveled outside US past 30 days?: No Exposure to someone with infectious disease in past 14 days?: No Do you have a fever (greater than 100.4 F or 38 C)?: No Have you tested positive for COVID-19?: No Exposed to someone with COVID-19 in past 14 days?: No Do you have a sore throat?: No Do you have a cough?: No Do you have any weakness?: No Are you experiencing any nausea/vomitting?: No Do you have any diarrhea?: No Are you experiencing any unusual bleeding?: No Do you have any muscle aches/pain?: No Do you have any abdominal pain?: No Are you experiencing loss of taste or smell?: No Other Medical History Have you received the Flu Vaccine for this season: No Have you received the Pneumonia Vaccine: No Review of Systems Review of Systems Review of systems (narrative): Negative *Cardiovascular Comments: Negative *Gastrointestinal Comments: Negative *Genitourinary Comments: Negative *Musculoskeletal Comments: Negative *Neurologic Comments: Negative Meds Home Medications and Allergies Home Medications ?Medication ?Instructions ?Recorded ?Confirmed ?Type clopidogrel 75 mg tablet 75 mg PO DAILY Blood thinner 07/15/19 09/12/24 History gemfibrozil 600 mg tablet 600 mg PO DAILY hld 07/15/19 09/12/24 History losartan 50 mg-hydrochlorothiazide 0.5 tab PO DAILY Fluid 07/15/19 09/12/24 History 12.5 mg tablet aspirin 81 mg capsule 81 mg PO DAILY CAD 04/22/22 09/12/24 History atorvastatin 40 mg tablet 40 mg PO DAILY Cholesterol 06/22/23 09/12/24 History sodium,potassium,mag sulfates 17.5 See Rx Instructions PO .COMPLEX 08/21/24 09/12/24 Rx gram-3.13 gram-1.6 gram oral soln #354 mL (Suprep Bowel Prep Kit) New Prescriptions to Start Prescriptions: Allergies Allergy/AdvReac Type Severity Reaction Status Date / Time No Known Allergies Allergy Verified 09/12/24 10:11 Exam Data for Last 24 hours Vital signs and Labs for Last 24 Hours: Temp Pulse Resp BP Pulse Ox O2 Del Method O2 Flow Rate 97.4 F L 85 18 99/53 L 95 Nasal Cannula 5 09/12/24 10:13 09/12/24 10:13 09/12/24 10:13 09/12/24 10:13 09/12/24 10:13 09/12/24 12:03 09/12/24 12:03 *Routine HEENT Exam Head: Present normocephalic Eye: Present EOMI and PERRL ENT: Present mucous membranes moist *Routine Neck Exam Neck: Present supple *Routine Respiratory Exam Respiratory: Present CTA bilaterally *Routine Cardiovascular Exam Cardiovascular: Present RRR *Routine Abdominal Exam Abdominal: Present soft and normoactive bowel sounds; Absent tenderness *Routine Rectal Exam Rectal:: deferred *Routine Genitalia Exam Genitalia:: deferred *Routine Extremities Exam Extremities: Absent cyanosis, clubbing or edema *Routine Skin Exam Skin: Present warm; Absent rash *Routine Neurological Exam Neurological: Present alert and oriented X3 Assessment and Plan *Assessment and plan (1) Personal history of adenomatous and serrated colon polyps: Status: Acute Category: Medical Code(s): Z86.0101 - Personal history of adenomatous and serrated colon polyps Plan A/P: 1. Personal history of adenomatous colon polyps is the preprocedural diagnosis. The patient did have a colonoscopy in April 2022 (Will Taylor M.D.) and had 42 colon polyps (adenomas) removed. The patient will be anesthetized/sedated using MAC sedation. The patient has been seen and examined. Cardiac and lung assessment prior to the examination is stable. Proceed with planned surveillance colonoscopy.
--- NOTE | 2024-09-12 12:08 | P.PCN_ITS ---
[facility] Procedure Note Date: 09/12/24 Time: 12:34 Procedure Note:: Colonoscopy Procedure Report: Colonoscopy with cold snare polypectomy Endoscopist: Duran Becker II, MD Referring physician: Tylor Aguilar MD Date of Procedure: September 12, 2024 Equipment: Olympus 190 variable stiffness pediatric colonoscope Sedation: MAC sedation Indication: Mr. Goff is a 79-year-old gentleman who is here for follow-up surveillance colonoscopy secondary to a personal history of adenomatous colon polyps. The patient did have a colonoscopy by Dr. Will Taylor M.D. in April 2022 and had 42 polyps removed. The pathology on all of the polyps showed that these were all tubular adenomas. The patient reports no abdominal pain, weight loss, change in his bowel habits or family history of colon cancer. He will occasionally see a spot of blood on the toilet tissue from internal hemorrhoids. Procedure: Prior to the procedure, a history and physical exam was performed, and patient's medications and allergies were reviewed. The risks, benefits and alternatives of the sedation and procedure were discussed with the patient. All questions were answered and informed consent was obtained. The patient was brought to the procedure room. Patient identification and proposed procedure were verified by the physician and the nurse. The patient was placed in a left lateral decubitus position and the scope was passed under direct vision. Throughout the procedure, the patient's blood pressure, pulse, and oxygen saturations were monitored continuously. The colonoscopy was accomplished without difficulty. The patient tolerated the procedure well. Findings: On digital rectal examination there was normal rectal tone. There were no external hemorrhoids. The colonoscope was introduced through the anal canal to the rectum and advanced to the cecum. The ileocecal valve and appendiceal orifice were identified. The scope was advanced a short distance into the ileum which appeared grossly normal. The scope was then withdrawn into the colon. There were 7 colon polyps (cecum x 2 (3 and 3 mm), transverse x 2 (3 and 4 mm), descending x 2 (3 and 5 mm) and rectal x 1 (6 mm)). These were all removed via cold snare polypectomy. The remaining cecum, ascending, transverse, descending, sigmoid and rectum were grossly normal. There were no mucosal abnormalities identified. Upon retroflexion within the rectum there were grade 2-3 internal hemorrhoids. The preparation was excellent throughout with Oldwick Preparation Score of 9. The cecal time was 14 minutes. Impression: 1. Diminutive colonic polyps x 7 2. Grade 2-3 internal hemorrhoids Plan: I will follow-up the polyp histology. Based upon his age, we will need to determine whether further surveillance is warranted. I would encourage psyllium bulking fiber supplementation on a maintenance basis.
[2024-09-12 12:38] VITALS: BP 70/43; PULSE 72; RESP 16; TEMP 36.2; O2SAT 94
[2024-09-12 12:48] VITALS: BP 78/46; PULSE 74; RESP 16; O2SAT 93
[2024-09-12 12:58] VITALS: BP 82/45; PULSE 73; RESP 16; O2SAT 94
[2024-09-12 13:08] VITALS: BP 83/56; PULSE 78; RESP 17; O2SAT 96
== END 2024-09-12 13:33 | disposition home or self-care (01) ==
PROVIDERS: PCP Family Medicine; Visit Provider Internal Medicine Gastroenterology
PROC: 0DJD8ZZ Inspection of Lower Intestinal Tract, Via Natural or Artificial Opening Endoscopic (ICD-10-PCS; CPT 45378; principal; 2024-09-12 12:00)
DX: Z12.11 Encounter for screening for malignant neoplasm of colon (principal); Z86.0101 Personal history of adenomatous and serrated colon polyps; D12.0 Benign neoplasm of cecum; D12.4 Benign neoplasm of descending colon; D12.3 Benign neoplasm of transverse colon; K63.5 Polyp of colon; K64.8 Other hemorrhoids
CPT/HCPCS: 45385; J2704; J7120

== ENCOUNTER 2024-11-11 07:34 | Outpatient (CLI) | payer MEDICARE, BC, SELFPAY ==
--- OUTSIDE RECORDS SUMMARY | 2024-07-01 05:30 | XMS_ITS ---
Author Organization [facility] Address [address] [facility] [address] [place] [id number] Care Team Providers Care Relay Associate Name Role Phone Rupinder Aguilar Primary Care Provider Allergies No Known Allergies Results Component Value Reference Range Notes P-Comprehensive Metabolic Pa abran (CMP) Reviewed date:07/04/2024 09:51:08 AM Interpretation:Normal Performing Lab: Notes/Report: Test performed by [facility] [address] [place] [address] , [address], [place] [address] Omega Thomas MD, [employer] CLIA: [id number] Sodium 140 135-145 mmol/L Potassium 4.3 3.5-5.3 mmol/L Chloride 103 97-108 mmol/L CO2 23 22-32 mmol/L Glucose 105 65-99 mg/dL BUN 22 8-23 mg/dL Creatinine 1.15 0.70-1.30 mg/dL Calcium 9.1 8.6-10.4 mg/dL eGFR by Creatinine 66 >59 mL/min/1.73m2 Protein 7.1 6.0-8.3 g/dL Albumin 4.6 3.5-5.3 g/dL Alkaline Phosphatase 81 40-129 IU/L ALT (SGPT) 11 <5-55 IU/L AST (SGOT) 20 <5-46 IU/L Bilirubin, Total 0.6 <0.2-1.2 mg/dL A/G Ratio 1.8 1.1-2.5 P-Lipid Panel Reviewed date:07/04/2024 09:51:08 AM Interpretation:Normal Performing Lab: Notes/Report: Test performed by [facility] [address], [place] [address] Omega Thomas MD, [employer] DANIEL: [id number] Cholesterol 143 <200 mg/dL Triglycerides 86 <150 mg/dL HDL Cholesterol 47 >39 mg/dL Cholesterol / HDL Ratio 3.04 0.00-4.99 Ratio Non-HDL Cholesterol 96 <130 mg/dL LDL Cholesterol (Calculation) 79 <130 mg/dL LDL Cholesterol Levels* Less than 100 mg/dL Optimal 100 to 129 mg/dL Near Optimal/ Above Optimal 130 to 159 mg/dL Borderline High 160 to 189 mg/dL High 190 mg/dL and above Very High * Categories as recommended by the 2004 ATPIII guidelines LDL/HDL Ratio 1.7 <3.3 Ratio LDL Cholesterol Patient History Test Date: 10/16/2023 LDL Results: 93 Units: mg/dL % Change: - Test Date: 07/01/2024 LDL Results: 79 Units: mg/dL % Change: -15% P-PSA Reviewed date:07/04/2024 09:51:08 AM Interpretation:Normal Performing Lab: Notes/Report: Test performed by [facility] [address] [place] [address] , [address], [place] [address] Omega Thomas MD, [employer] CLIA: [id number] PSA 0.66 <4.00 ng/mL Please note this is an ultrasensitive PSA assay with a lower limit of detection of 0.014 ng/mL. This test is performed by the Monae ECLIA methodology. Values obtained with different assay methods or kits cannot be directly compared. Reason For Referral Reason history colon polyps Diagnosis 1 History of colon rene yps (Z86.010) Referral Organization [facility] Referring Provider First Name Rupinder Snider Referring Provider Last Name Jeff Referring Provider Speciality Family [facility] ctice Referred Provider KENN BECKER Referred Provider Specialty Gastroentero logy General Notes Thuy Card 07/01/19 10:03:42 AM > faxed to Dr. Becker office, Thuy Card 07/08/2024 11:16:10 AM > spoke with Alexandrea; patient is scheduled Referral Priority Routine REASON FOR VISIT 5 month check Medications Medication SIG (Take, Route, Frequency, Duration) Notes Start Date End Date Status Lopid 600 MG take 1 tablet every day; Duration: 90 days Active Clopidogrel Bisulfate 75 MG Take 1 table t by mouth once daily; Duration: 90 Active Losartan Potassium-HCTZ 50-12.5 MG 1/2 orally once a day; Duration: 90 Active Atorvastatin Calcium 40 MG Take 1 tablet by mouth once daily; Duration: 90 days Active Aspirin 81 MG 1 tab(s) orally bedtime 11/19/2014 Active Social History Tobacco Use: Social History Observation Description Date Smoking Status WARNING: Information temporarily unavailable CURRENT TOBACCO USE: Question Answer Notes Additional Findings: Tobacco User STOPPED SMOKING MAY 2019 Vital Signs Blood pressure systolic 100 mm Hg 07/01/19 25 Blood pressure diastolic 62 mm Hg 025 Heart Rate 74 /min 07/01/2024 Height 65 in 07/01/2024 Weight 153.6 lbs 07/01/2024 BMI 25.56 kg/m2 07/01/2024 Encounters Encounter Location Date Provider Diagnosis [facility] [address] [facility] [address] [facility] [address] [place] [id number] 07/01/2024 Rupinder Aguilar Essential hypertensi on I10 ; Mixed hyperlipidemia E78.2 ; Lumbar disc disease with radiculopathy M51.16 ; Benign prostatic hyperplasia without lower urinary tract symptoms N40.0 and Arteriosclerotic cardiovascular disease I25.10 Assessments Encounter Date Diagnosis (ICD Code) Assessment Notes Treatment Notes Treatment Clinical Notes Section Notes 07/01/2024 Essential hypertension (ICD-10 - I10) 07/01/2024 Mixed hyperlipidemia (ICD-10 - E78.2) 07/01/2024 Lumbar disc disease with radiculopathy (ICD-10 - M51.16) 07/01/2024 Benign prostatic hyperplasia without lower urinary tract symptoms (ICD-10 - N40.0) 07/01/2024 Arteriosclerotic cardiovascular disease (ICD-10 - I25.10) Plan Of Treatment Referrals Referral Date Details 07/01/2024 07/01/2024, history colon polyps, KENN BECKER Next Appt Details Follow Up: 4 Months, Reason: Provider Name:Rupinder Barry er, 11/29/2024 10:15:00 AM, [address] [facility] [address] [facility], [address], [place], [id number], Progress Notes * ROLANDO FANGDOB:1945 (79 yo M)Acc No.[id number]:07/01/2024 Progress Notes Patient: ROLANDO BECKETT Provider: Rupinder Aguilar M.D. :1945 A ge:78 Y S ex:Male Date:07/01/2024 Address:[address] [place], [place] [id number] Subjective: * Chief Complaints: * 1 . 5 month check. * HPI: C ardiology: The patient is here for a check up on Hypertension and Hyperlipidemia. Pt states he is doing good and denies any new concerns. Pt is not fasting. Denies : Chest Pain. D enies : Short of Breath. D enies : Dizziness. D enies : Palpitations. * ROS: D ERMATOLOGY: no R karina. n o H mayank. G ASTROENTEROLOGY: no N ausea. n o V omiting. n o D iarrhea.? U ROLOGY: no D ifficulty urinating. n o B lood in urine. * Medical History: H yperlipidemia, JADE...LT Vascular Insufficiency, 11/01/2005, Renal Stones, Herniated Disc L4, 05/2008, 20-49% Carotid Stenosis 01/11/2018, no change from 11/2014, States he has had pneumonia vaccinations, per pharmacy, [phone], States he had pneumonia vaccination. * Surgical History: B ilateral Rotator Cuff Repair 1998, Tonsilectomy , LT Knee 09/2006, Colonoscopy, [facility], Dr. Taylor, 42 polyps removed. Tubular adenomas 04/26/2022. * Hospitalization/Major Diagno stic Procedure: [facility], Stiff Neck- [facility] ER 08/2010, [facility], Pneumonia- [facility]2018[facility] 10/14/2019, Sp[facility]. * Family History: F ather: . M other: alive. S iblings: brother with diabetes. 3 brother(s) , 2 sister(s) . 1 daughter(s) . . * Social History: C URRENT TOBACCO USE A dditional Findings: Tobacco User STOPPED SMOKING MAY 2019. C affeine: yes, frequency:daily. Exercise: no. Home smoke detector use: yes. Marital Status: . Past smoking status: yes, PPD: , years: ,determination:1pk, 40yrs. Alcohol: Type: , Frequency: ,Years: , Determination:beer occasionally. * Medications: T aking Aspirin 81 MG Tablet Delayed Release 1 tab(s) orally bedtime , Taking Lopid 600 MG Tablet take 1 tablet every day , Taking Losartan Potassium-HCTZ 50-12.5 MG Tablet 1/2 orally once a day , Taking Atorvastatin Calcium 40 MG Tablet Take 1 tablet by mouth once daily , Taking Clopidogrel Bisulfate 75 MG Tablet Take 1 tablet by mouth once daily , Discontinued Meclizine HCl 25 MG Tablet 1 tablet Orally Three times a day , Medication List reviewed and reconciled with the patient * Allergies: N .K.D.A. Objective: * Vitals: W t:153.6, Temp:97.6, BP:100/62, HR:74, Nurse:WANDA, Ht: 65, BMI:25.56. * Examination: G eneral Examination: General Appearance: N AD. H EENT: u nremarkable.?Oral cavity: n o lesions, mucosa moist and WNL, no erythema. N cora: s upple, no lymphadenopathy, carotid bruit, right, carotid bruit, left. C hest: n ormal shape and expansion. Heart: R SR. L ungs: c lear to auscultation. A bdomen: s oft and nontender, no organomegaly or masses.. N eurologic Exam: I ntact, gait normal. S kin: n ormal, no rash. P eripheral pulses: n ormal . E xtremities: n o leg edema. ? Assessment: * Assessment: 1. E ssential hypertension - I10 (Primary) 2 . M ixed hyperlipidemia - E78.2 3 . L umbar disc disease with radiculopathy - M51.16 4 . B enign prostatic hyperplasia without lower urinary tract symptoms - N40.0 5 . A rteriosclerotic cardiovascular disease - I25.10 Plan: * Treatment: * Labs: * L ab: P-PSA (Collection Date & Time - 07/01/2024 03:24 PM) N ormal Value Reference Range P SA 0.66 <4.00 - ng/mL * Cherri Lacy L 07/04/2024 9:5 0:47 AM >Patient informed of normal results. ?Lab: P-Comprehensive Metabolic Panel (CMP) (Collection Date & Time - 07/01/2024 03:24 PM)?Normal* Value Reference Range A /G Ratio 1.8 1.1-2.5 - * A lbumin 4.6 3.5-5.3 - g/dL * A lkaline Phosphatase 81 40-129 - IU/L * A LT (SGPT) 11 <5-55 - IU/L * A ST (SGOT) 20 <5-46 - IU/L * B ilirubin, Total 0.6 <0.2-1.2 - mg/dL * B UN 22 8-23 - mg/dL * C alcium 9.1 8.6-10.4 - mg/dL * C hloride 103 97-108 - mmol/L * C O2 23 22-32 - mmol/L * C reatinine 1.15 0.70-1.30 - mg/dL * G lucose 105 H 65-99 - mg/dL * P otassium 4.3 3.5-5.3 - mmol/L * S odium 140 135-145 - mmol/L * P rotein 7.1 6.0-8.3 - g/dL * e GFR by Creatinine 66 >59 - mL/min/1.73m2 * Cherri Lacy 07/04/2024 9:5 0:47 AM >Patient informed of normal results. ?Lab: P-Lipid Panel (Collection Date & Time - 07/01/2024 03:24 PM)?Normal* Value Reference Range C holesterol / HDL Ratio 3.04 0.00-4.99 - Ratio * C holesterol 143 <200 - mg/dL * H DL Cholesterol 47 >39 - mg/dL * L DL Cholesterol (Calculation) 79 <130 - mg/d L * L DL/HDL Ratio 1.7 <3.3 - Ratio * N on-HDL Cholesterol 96 <130 - mg/dL * T riglycerides 86 <150 - mg/dL * Cherri Lacy 07/04/2024 9:5 0:47 AM >Patient informed of normal results. * Procedure Codes: G 2211 Complex e/[place], [address] [employer], 51575 VENIPUNCT, ROUTINE*, 3074F SYST BP LT 130 MM HG, 3078F DIAST BP < 80 MM HG * Follow Up: 4 Months * Images: Billing Information: * Visit Code: 03406 Office Visit, Est Pt., Level 4. * Procedure Codes: G2211 Complex e/[place]. [address] SPE[employer]IM[employer] HAND[employer]. 88021 VENIPUNCT, ROUTINE*. 3074F SYST BP LT 130 MM HG. 3078F DIAST BP < 80 MM HG. * Electronic signature of Rupinder Aguilar MD on 11/11/2024 at 07:36 AM EDT Sign off status: Pending * Provider: Rupinder Aguilra M.D. Date: 0 07/01/2024 Generated for Mare arora/Julianna/eTransmitting on: 0 11/11/2024 07:36 AM EDT History and Physical Notes * HPI (History of Present Illness) Category Sub-Category Detail Notes Category Not es Cardiology Short of Breath Chest Pain Palpitations Dizziness Examination Category Sub-Category Detail Notes Category Not es General Examination HEENT: unremarkable Heart: RSR Lungs: clear to auscultatio n Abdomen: soft and nontender, no organomegaly or masses. Extremities: no leg edema General Appearance: NAD Skin: normal, no rash Neurologic Exam: Intact, gait normal Neck: supple, no lymphaden opathy, carotid bruit, right, carotid bruit, left Oral cavity: no lesions, mucosa m oist and WNL, no erythema Peripheral pulses: normal Chest: normal shape and exp ansion Consultation Request Notes Referral Date Referring Provider Referred Provider Not es 07/01/2024 Rupinder Aguilar EARL history c olon polyps
--- OUTSIDE RECORDS SUMMARY | 2024-08-22 06:15 | XMS_ITS ---
Author Organization [facility] Address [address] [facility] [address] [place] [phone] Care Team Providers Care Fancy Wire Drawer Name Role Phone Rupinder Aguilar Primary Care Provider [phone] [place] Marycarmen Unavailable [phone] Allergies No Known Allergies REASON FOR VISIT [facility] [employer] d/c f/u Medications Medication SIG (Take, Route, [...] Status Risk Notes Problem Peripheral vascular disease (946976722) Peripheral vascular disease, unspecified (I73.9) Active confirmed Vital Signs Blood pressure systolic 122 mm Hg 08/23/19 25 Blood pressure diastolic 78 mm Hg 025 Heart Rate 74 /min 08/22/2024 Height 65 in 08/22/2024 Weight 154.2 lbs 08/22/2024 BMI 25.66 kg/m2 08/22/2024 Encounters Encounter Location Date Provider Diagnosis [facility] [address] [facility] [address] [place] [phone] 08/22/2024 Marycarmen Pham Peripheral vascular disease, unspecified [...] 11/29/2024 10:15:00 AM, [address] [facility], [address], [facility] [place], [phone], Progress Notes * ROLANDO FANGDOB:1945 (79 yo M)Acc No.[id number]:08/22/2024 Progress Notes Patient: ROLANDO BECKETT Provider: JESS King :1945 A ge:79 Y S ex:Male Date:08/22/2024 Address:[address] [place], [place] [id number] Pcp:Rupinder Aguilar Subjective: * Chief Complaints: * 1 . [facility] d/c f/u. * HPI: H PI: Patient is here today for a Transition of Care Visit. Discharge from the following Facility: [facility] , Discharge date: 08/18/2024 ,Date of [...] he has had pneumonia vaccinations, per pharmacy, [facility] [place], 03/2018[facility] [phone], States he had pneumonia vaccination. * Surgical History: B ilateral Rotator Cuff Repair 1998, Tonsilectomy , LT Knee 09/2006, Colonoscopy, [facility], Dr. Taylor, 42 polyps removed. Tubular adenomas 04/26/2022. * Hospitalization/Major Diagno stic Procedure: [place], Stiff Neck- [facility] ER 08/2010, [facility], [facility]- [facility] 10[facility]2018[facility] 10[facility]14[facility]2019[facility] * Family History: F [...] ixed hyperlipidemia - E78.2 3 . B ND 25.0-25.9,adult - Z68.25 Plan: * Treatment: * Procedure Codes: 9 9495 TRANS CARE MGMT 14 DAY DISCH, 1111F DSCHR MED/CURENT MED MERGE, G2211 Complex e/m visit add on, 3074F SYST BP LT 130 MM HG, 3078F DIAST BP < 80 MM HG * Images: Billing Information: * Visit Code: 69384 Office Visit, Est Pt., Level 3. * Procedure Codes: 20387 TRANS CARE MGMT 14 DAY DISCH. 1111F DSCHR MED/CURENT MED MERGE. G2211 Complex e/m visit add on. 3074F SYST BP LT 130 MM HG. 3078F DIAST BP < 80 MM HG. * Electronic signature of JESS Bazan on 11/11/2024 at 07:37 AM EDT Sign off status: Pending * Provider: JESS King Date: 0 08/22/2024 Generated for Mare arora/Julianna/Aliyahitting on: 0 11/11/2024 07:37 AM EDT History and Physical Notes * HPI (History of Present Illness) Category Sub-Category Detail Notes Category Not es HPI Patient is here today for a [facility] sition of Care Visit. Discharge from the following Facility: [facility] ,Discharge date: 08/18/2024 ,Date of phone contact following discharge: 08/19/2024. Pt states he is doing much better. Pt denies any chest pain or shortness of breath. Pt denies any new concerns. HR was 165
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
--- OUTSIDE RECORDS SUMMARY | 2024-11-01 05:30 | XMS_ITS ---
[facility] [address] [place] [id number] Care Team Providers Care Aircraft Structural Repair Mechanic Name Role Phone Rupinder Aguilar Primary Care Provider Allergies No Known Allergies Reason For Referral Reason paroxysmal SVT Diagnosis 1 Paroxysmal SVT (supr aventricular tachycardia) (I47.10) Referral Organization [facility] Referring Provider First Name Rupinder Snider Referring Provider Last Name Jeff Referring Provider Speciality Family Pra ctice Referred Provider Specialty Cardiovascul ar Disease General Notes Thuy Card 2024 10:07:06 AM > faxed to [facility] Cardiology Referral Priority Routine REASON FOR VISIT 4 Month Check Up, Needs labs & Prevnar vaccine Medications Medication SIG (Take, Route, Frequency, Duration) Notes Start Date End Date Status Metoprolol Succinate 25 MG 1 capsule Ora lly Once a day; Duration: 30 days 11/01/2024 Active Losartan Potassium 25 MG 1 tablet Orally Once a day; Duration: 30 days 11/01/2024 Active Garlique 400 MG as directed Orally Active Aspirin 81 MG 1 tab(s) orally bedtime 11/19/2014 Active Clopidogrel Bisulfate 75 MG Take 1 table t by mouth once daily; Duration: 90 Active Atorvastatin Calcium 40 MG Take 1 tablet by mouth once daily; Duration: 90 days Active Gemfibrozil 600 MG Take 1 tablet by rosalie th once daily; Duration: 90 Active Social History Tobacco Use: Social History Observation Description Date Smoking Status WARNING: Information temporarily unavailable CURRENT TOBACCO USE: Question Answer Notes Additional Findings: Tobacco User STOPPED SMOKING MAY 2019 Problems Problem Type SNOMED Code ICD Code Onset Dates Problem Status W/U Status Risk Notes Problem 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 ; Paroxysmal SVT (supraventricular tachycardia) I47.10 ; Memory loss R41.3 ; Essential (primary) hypertension I10 and BMI 25.0-25.9,adult Z68.25 Assessments Encounter Date Diagnosis (ICD Code) Assessment Notes Treatment Notes Treatment Clinical Notes Section Notes 11/01/2024 Carotid stenosis, bilateral (ICD-10 - I65.23) 11/01/2024 Vertebrobasilar insufficiency (ICD-10 - G45.0) 11/01/2024 Arteriosclerotic cerebrovascular disease (ICD-10 - I67.2) 11/01/2024 Arteriosclerotic cardiovascular disease (ICD-10 - I25.10) 11/01/2024 Paroxysmal SVT (supraventricular tachycardia) (ICD-10 - I47.10) 11/01/2024 Memory loss (ICD-10 - R41.3) 11/01/2024 Essential (primary) hypertension (ICD-10 - I10) 11/01/2024 BMI 25.0-25.9,adult (ICD-10 - Z68.25) Plan Of Treatment Medication Medication Name Sig Start Date Stop Date Notes Metoprolol Succinate 25 MG 1 capsule Ora lly Once a day; Duration: 30 days 11/01/2024 Losartan Potassium 25 MG 1 tablet Orally Once a day; Duration: 30 days 11/01/2024 Losartan Potassium-HCTZ 50-1 2.5 MG Take 1/2 (one-half) tablet by mouth once daily Pending Test Test Name Order Date CT[facility] : [place] [facility] 11/01/2024 CTA : Neck 11/01/2024 CTA : Head 11/01/2024 Referrals Referral Date Details 11/01/2024 11/01/2024, paroxysm al SVT Next Appt Details Follow Up: 4 Weeks, Reason: Provider Name:Rupinder Barry er, 11/29/2024 10:15:00 AM, [address], [place], [place], [id number], Progress Notes * ANNALISA, ROLANDODOB:1945 (79 yo M)Acc No.[id number]:11/01/2024 Progress Notes Patient: ROLANDO BECKETT Provider: Rupinder Aguilar M.D. :1945 A ge:79 Y S ex:Male Date:11/01/2024 Address:[address] [place], [place] [id number] Subjective: * Chief Complaints: * 1 . 4 Month Check Up. 2. Needs labs & Prevnar vaccine. * HPI: C ardiology: The patient is here today for a check up on Hypertension and Hyperlipidemia. Pt states he is doing good except for some dizziness when he bends his head back. Pt is not fasting. HAS HAD 2 EPISODES OF SVT. [facility] 79 year [facility] male presents with c/o Dizziness w ith movement of head. Denies : Chest Pain. D enies : Short of Breath. D enies : Palpitations. * ROS: D [...] vaccinations, per pharmacy, Hep A [facility] [place], 03/2018, Dr. Hearn, [facility] [phone], States he had pneumonia vaccination. * Surgical History: B ilateral Rotator Cuff Repair 1998, Tonsilectomy , LT Knee 09/2006, Colonoscopy, [facility], Dr. Taylor, 42 polyps removed. Tubular adenomas 04/26/2022. * Hospitalization/Major Diagno stic [facility], Stiff Neck- [facility] ER 08/2010, [facility], [facility]neumonia[facility] 10[facility]2018[facility] 10/14/2019, Spinal cord stimulator, [facility] Mar 2023. * Family History: F ather: [...] , Determination:beer occasionally. * Medications: T aking Garlique 400 MG Tablet Delayed Release as directed Orally , Taking Aspirin 81 MG Tablet Delayed Release 1 tab(s) orally bedtime , Taking Atorvastatin Calcium 40 MG Tablet Take 1 tablet by mouth once daily , Taking Clopidogrel Bisulfate 75 MG Tablet Take 1 tablet by mouth once daily , Taking Losartan Potassium-HCTZ 50-12.5 MG Tablet Take 1/2 (one-half) tablet by mouth once daily , Taking Gemfibrozil 600 MG Tablet Take 1 tablet by mouth once daily , Medication List reviewed and reconciled with the patient * Allergies: N .K.D.A. Objective: * Vitals: W t: 152.4, Temp: 97.7, BP: 120/70, HR: 78, Nurse: WANDA, Ht: 65, BMI:25.36. * Examination: G eneral Examination: General Appearance: N AD. H EENT: u nremarkable.?Oral cavity: n o lesions, mucosa moist and WNL, no erythema. N cora: s upple, no lymphadenopathy, carotid bruit, right, carotid bruit, left. C hest: n ormal shape and expansion. Heart: R SR, no ectopics. L ungs: c lear to auscultation. A bdomen: s oft and nontender, no organomegaly or masses.. N eurologic Exam: I ntact, gait normal. S kin: n ormal, no rash. P eripheral pulses: n ormal . E xtremities: n o leg edema.? Assessment: * Assessment: 1. C arotid stenosis, bilateral - I65.23 (Primary) 2 . V ertebrobasilar insufficiency - G45.0 3 . 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 4 . A rteriosclerotic cardiovascular disease - I25.10 5 . P aroxysmal SVT (supraventricular tachycardia) - I47.10 6 . M pili loss - R41.3 ? 7 . E ssential (primary) hypertension - I10 8 . B MT 25.0-25.9,adult - Z68.25 Plan: * Treatment: 2.?Paroxysmal SVT (supraventricular tachycardia)? Start Metoprolol Succinate Capsule ER 24 Hour Sprinkle, 25 MG, 1 capsule, Orally, Once a day, 30 days, 30, Refills 3.? Referral To:Cardiovascular Disease ?Reason:paroxysmal SVT 3.?Essential (primary) hypertension? Stop Losartan Potassium-HCTZ Tablet, 50-12.5 MG, Take 1/2 (one-half) tablet by mouth once daily; Start Losartan Potassium Tablet, 25 MG, 1 tablet, Orally, Once a day, 30 days, 30, Refills 3. ? * Procedure Codes: G 2211 Complex e/m visit add on, 1036F TOBACCO NON-USER, G8420 BMI<30 AND >=22 CALC & DOCU, G8950 PREHTN/HTN BP DOC INDCD F/U DOC, G8752 MOST RECENT SYSTOLIC BP < 140MM HG, G8754 MOST RECENT DIASTOLIC BP < 90MM HG * Follow Up: 4 Weeks * Images: Billing Information: * Visit Code: 07428 Office Visit, Est Pt., Level 4. * Procedure Codes: G2211 Complex e/m visit add on. 1036F TOBACCO NON-USER. G8420 BMI<30 AND >=22 CALC & DOCU. G8950 PREHTN/HTN BP DOC INDCD F/U DOC. G8752 MOST RECENT SYSTOLIC BP < 140MM HG. G8754 MOST RECENT DIASTOLIC BP < 90MM HG. * Electronic signature of Rupinder Aguilar MD on 11/11/2024 at 07:36 AM EDT Sign off status: Pending * Provider: Rupinder Aguilar M.D. Date: 11/01/2024 Generated for Printi ng/Faxing/eTransmitting on: 11/11/2024 07:36 AM EDT History and Physical Notes * HPI (History of Present Illness) Category Sub-Category Detail Notes Category Not es Cardiology Short of Breath Chest Pain Palpitations Dizziness with movement of hea d Examination Category Sub-Category Detail Notes Category Not es General Examination HEENT: unremarkable Heart: RSR, no ectopics Lungs: clear to auscultatio n Abdomen: soft [...] Date Referring Provider Referred Provider Not es 11/01/2024 Rupinder Aguilar , paroxysmal SVT
--- NOTE | 2024-11-11 07:36 | CT_ITS ---
FINAL REPORT TECHNIQUE: thin section axial CT with and without IV contrast supplemented with multiplanar 3-D reconstruction of the head. This study was performed with techniques to keep radiation doses as low as reasonably achievable, (ALARA)individualized dose reduction techniques using automated exposure control or adjustment of mA and/or kV according to the patient's size were employed. 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 fast heart rate. COMPARISON: None FINDINGS: HEAD CT: The ventricles are normal in size. There is no evidence of hemorrhage. No masses are identified. No extra-axial fluid is seen. The sinuses are normal. CTA: The cranial circulation is unremarkable. There is no significant stenosis, aneurysm or occlusion. IMPRESSION: No acute process. Reviewed, Interpreted and Dictated by Brenton Webb MD Transcribed by Elizabet Butler Authenticated and [facility]
--- OUTSIDE RECORDS SUMMARY | 2024-11-11 07:37 | XMS_ITS | Encounter Summary ---
Author Organization Healthcare Address [address] [place] [address] Care Team Providers Care Microphone Operator Name Role Phone Ricki Aguilar MD Primary Care Provider [phone] Encounter Details Date Type Department Care Team (Latest Contact Info) Description 10/25/2024 Travel Social History Tobacco Use Types Packs/Day Years [...] on file documented as of this encounter Plan of Treatment Upcoming Encounters Date Type Department Care Team (Late st Contact Info) Description 01/24/2025 10:15 AM EDT Office Visit [facility] [place] [address] [facility], [address] [place] [id number] Mariano Harrell MD [address] [facility] [address] [place] [address] documented as of this encounter Visit Diagnoses Not on filedocumented in this encounter Additional Health Concerns Assessment Noted Time A Body Mass Index follow-up plan has been documented for the patient 10/25/2024 3:16 PM EDT documented as of this encounter Care Teams Microphone Operator Relationship Specialty Start Date End Date Ricki Aguilar MD [address] [place] [address] PCP - General 09/25/20 documented as of this encounter
--- OUTSIDE RECORDS SUMMARY | 2024-11-11 07:37 | XMS_ITS | Encounter Summary ---
Author Organization [employer] Address [address] [place] [address] Care Team Providers Care Waitstaff Name Role Phone Unavailable Primary Care Provider Unavailabl e Encounter Details Date Type Department Care Team (Late st Contact Info) Description 11/08/2018 Transcribed Document [facility] [place] [address] [place] [address] ProviderDel MD [address] [place] [address] Social History Tobacco Use Types Packs/Day Years Used Date Smoking Tobacco: Never Assessed Sex and Gender Information Value Date Recorded Sex Assigned at Not on file Legal Sex Male 1:45 PM CDT Gender Identity Not on file Sexual Orientation Not on file documented as of this encounter Miscellaneous Notes * Cerner Conversion Note - Del Ann MD - 11/08/2018 1:42 PM CDT DATE OF ADMISSION: 11/08/2018 HISTORY OF PRESENT ILLNESS: This is a 73-year-old male with a chief complaint of chronic lower back pain radiated to lower extremity, came today for followup. The patient mentioned after we did a second epidural steroid injection on October 09, 2018, he had 50% relief of pain, which is still ongoing. The patient mentioned that his pain now is dropping down and today his pain is almost 0/10. He still has some leg numbness at certain times with some lower back pain. However, the patient went to the emergency room on October 28, 2018 for diagnosis of pneumonia, spitting blood, hemoptysis. They placed him on IV antibiotics and prednisone, and he is scheduled to have CT scan in October. He is now feeling much better. He does not have any symptoms related to fever, chills. However, he is still a smoker a pack a day. REVIEW OF SYSTEMS: Constitutional, Respiratory, Cardiovascular, Ophthalmology, Gastrointestinal, Genitourinary, ENT, Musculoskeletal, Integumentary, Neurology, Psychiatry, Endocrine, Hematology were not changed from 10/09/2018. PHYSICAL EXAMINATION: Blood pressure 121/57, heart rate 71, respirations 16, saturation 97%, temperature 96.9. Pain level 0. Hours of sleep 6-8. No change in physical and neurological exam. Muscle tone power sensory and deep tendon reflexes were unchanged. The nurse notes, vital signs, and medication were reviewed and evaluated. No sign of impairment or toxicity to medicine. The patient psych evaluation, urine drug screen, and EDIS were appropriate for taking opioid medication. ASSESSMENT: 1. 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 2. Lumbosacral spondylosis. 3. Lumbosacral radiculopathy. 4. Patient recently had a symptoms of pneumonia and hemoptysis. He was treated with intravenous antibiotics and prednisone. PLAN: I have lengthy discussion with the patient in regard to his condition, the patient scheduled to have a third lumbar epidural steroid injection; however, since the patient has recently diagnosed with pneumonia, I mentioned to the patient that we are going to hold the procedure for right now until the patient has full recovery and we have to get the patient at least one month before we resume his procedure. I am going to schedule him after one month to repeat the lumbar epidural steroid injection and hopefully after that, we evaluate him for possible lumbosacral facet block to help him with his spondylosis pain. Cindy Hearn M.D., THANG Pain Certified Dict: 11/08/2018 13:42:45 Trans: 11/08/2018 14:36:15 CC1: Cindy Hearn M.D., THANG Pain Certified CC2: Tylor Aguilar MD Electronically signed by Bianca [facility] Conversion Radiological Technician Cerner at 08/31/2022 6:30 PM CDT documented in this encounter Plan of Treatment Not on file documented as of this encounter Visit Diagnoses Not on filedocumented in this encounter
--- OUTSIDE RECORDS SUMMARY | 2024-11-11 07:37 | XMS_ITS | Encounter Summary ---
Author Organization [email or web address] Address [address] [place] [address] Care Team Providers Care Clinical Nurse Reviewer Name Role Phone Unavailable Primary Care Provider Unavailabl e Encounter Details Date Type Department Care Team (Late st Contact Info) Description 09/04/2018 Transcribed Document [facility] [place] Medicine [address] [place] [address] ProviderDel MD [address] [place] [address] Social History Tobacco Use Types Packs/Day Years Used Date Smoking Tobacco: Never Assessed Sex and Gender Information Value Date Recorded Sex Assigned at Not on file Legal Sex Male 1:45 PM CDT Gender Identity Not on file Sexual Orientation Not on file documented as of this encounter Miscellaneous Notes * Cerner Conversion Note - Del Ann MD - 09/04/2018 9:48 AM CDT DATE OF ADMISSION: 09/04/2018 HISTORY OF PRESENT ILLNESS: This is a 73-year-old male with a chief complaint of chronic lower back pain that radiates into the left lower extremity for several years' duration. The patient presents today for re-evaluation. The patient was last seen in this clinic in June 2016. The patient is complaining today of lower back and leg pain. He states it is intermittent. He states that he does get numbness and tingling in his legs. The patient is describing his pain as numbness and aching. The patient states his current pain level is a 7/10. He states the tolerable pain level will be an 8/10. He states his average pain level is 7/10. He states that climbing stairs and walking make his pain worse. The patient states that rest makes his pain better. The patient states he does not have diabetes and is not taking any blood thinners. The patient did note that he had a lumbar epidural steroid injection at L3-4 on July 04, 2016. He states that did give him excellent relief until about four months ago. The patient states that his pain is coming back now. He is now having the lower back pain with numbness in both of his legs with any activity. He states the left is worse than the right. He states that he feels like his legs are just going to give out. The patient states that his pain is worse with moving and mowing the yard. The patient states that going up an incline is really hard for him. The patient states he has had no medical changes since his last visit. The patient states that he is hopeful that he will get another injection to get just this great relief again. ALLERGIES: No known drug allergies. CURRENT MEDICATIONS: 1. Losartan/hydrochlorothiazide. 2. Gemfibrozil. 3. Atorvastatin. 4. Manju baby aspirin. PAST SURGICAL HISTORY: The patient states he has had no changes to his past surgical history. PAST MEDICAL HISTORY: The patient states he has had no changes to his past medical history. FAMILY HISTORY: The patient states there are no changes to his past family history. SOCIAL HISTORY: The patient states his pain treatment goal is to be able to walk without having to stop a lot and he wants to get a walk without feeling like his legs and his back are going to give out. The patient states he is retired. He does smoke. He smokes about one pack per day for the last 50 years. The patient states he does drink alcohol. He states that he drinks two to three beers a couple times a week. The patient denies any past or current illegal drugs or substance abuse. The patient states he did finish the 12th grade. He is . He enjoys taking care of the yard and vehicles at home. REVIEW OF SYSTEMS: CONSTITUTIONAL SYMPTOMS: Denies. EYES: Denies. EARS, NOSE, AND THROAT: Denies. NEUROLOGICAL: Admits to numbness and difficulty walking. HEMATOLOGIC/LYMPHATIC: Denies functional status. Can attend basic daily routines without needing assistance. RESPIRATORY: Denies. GASTROINTESTINAL: Denies. MUSCULOSKELETAL: Admits to joint pain and muscle aches. PSYCHIATRIC: Denies. CARDIOVASCULAR: Denies. GENITOURINARY: Denies. ENDOCRINE: Admits to urinary frequency and fatigue. PHYSICAL EXAMINATION: VITAL SIGNS: Blood pressure 142/68, pulse 83, temperature 96.4, respiratory rate 16, O2 saturation 97% on room air, height 5 feet 6 inches, weight 142 pounds, and visual analog score 0/10. The patient was alert and oriented to person, place, and time. He did have mild to moderate pain behavior and discomfort. The rest of the physical exam to include heart, lungs, abdomen, and HEENT was all unremarkable. DIRECTED PHYSICAL EXAM: The patient did have an antalgic gait. He did have difficulty doing heel to toes mainly on the left side. Flexion and extension of the trunk was moderately limited. There was more pain caused in extension versus the flexion, but there was pain in both. Palpation of the lumbosacral area did reveal tenderness bilaterally over the lumbosacral facet area. There was positive facet loading. NEUROLOGICAL EXAM: Cranial nerves 2 through 12 were unremarkable. The patient did motor 5/5 bilaterally and symmetrically in the upper and lower extremities. Sensory was grossly nonfocal in the upper lower extremities. Deep tendon reflexes were positive 2/4 bilaterally and symmetric symmetrically in the upper and lower extremities. Straight leg raise was positive on the left and negative on the right. NOTE: The nurse's notes and EDIS were reviewed and evaluated. We did do a chronic pain psychological evaluation in our clinic with the SOAPP-R. The patient's score was 4 indicating mild risk to continue any controlled substances. DIAGNOSTIC DATA: There has been no new imaging since the patient's last office visit with this clinic. ASSESSMENT: 1. Chronic lower back pain secondary to degenerative joint disease and degenerative disk disease of lumbosacral spine. 2. Lumbosacral radiculopathy. 3. Lumbosacral spondylosis. PLAN: 1. Scheduled the patient for a lumbar epidural steroid injection at L3-4. 2. I have encouraged the patient to do home exercises to include walking, stretching, and range of motion exercises. 3. There were no medications prescribed at today's office visit. The assessment and plan for today's visit was reviewed by Dr. Hearn. However, there were no medications prescribed at today's office visit. Dictated By: Nanci Braun APRN For Cindy Hearn M.D., THANG Pain Certified Cindy Hearn M.D., THANG Pain Certified Dict: 09/04/2018 09:48:31 Trans: 09/04/2018 14:16:30 CC1: Cindy Hearn M.D., THANG Pain Certified CC2: Dr. Ricki Aguilar Electronically signed by [facility] Conversion Director Commercial Sales Cerner at 08/31/2022 6:56 PM CDT documented in this encounter Plan of Treatment Not on file documented as of this encounter Visit Diagnoses Not on filedocumented in this encounter
--- OUTSIDE RECORDS SUMMARY | 2024-11-11 07:37 | XMS_ITS | Encounter Summary ---
Author Organization [facility] Address [address] [place] [address] Care Team Providers Care Felled Seam Operator Name Role Phone Ricki Aguilar MD Primary Care Provider [phone] Encounter Details Date Type Department Care Team (Late Contact Info) Description 10/24/2022 Orders Only External Location [address] [place] [address] Provider, External Social History Tobacco Use Types Packs/Day Years Used Date Smoking Tobacco: Every Day Alcohol Use Standard Drinks/Week Comments Yes 0 [...] Description 01/24/2025 10:15 AM EDT Office Visit [facility] [place] [address] [place] [address], [address] [place] [address] Mariano Harrell MD [address] [address] documented as of this encounter Procedures Procedure Name Priority Date/Time Associated Diagnosis Comments MR OUTSIDE IMAGES 10/24/2022 12:58 PM EDT documented in this encounter Results * MR transfer of outside films (10/24/2022 12:58 PM EDT) Anatomical Region Laterality Modality Magnetic Resonan ce 10/24/2022 12:5 8 PM EDT us External Provider IMG MRI PROCEDURES Final Resul t documented in this encounter Visit Diagnoses Not on filedocumented in this encounter Care Teams Felled Seam Operator Relationship Specialty Start Date End Date Ricki Aguilar MD [address] [place] [address] PCP - General 09/25/20 documented as of this encounter
--- OUTSIDE RECORDS SUMMARY | 2024-11-11 07:37 | XMS_ITS | Encounter Summary ---
Author Organization [employer] Address [address] [place] [address] Care Team Providers Care Transcribing Machine Operator Name Role Phone Unavailable Primary Care Provider Unavailabl e Encounter Details Date Type Department Care Team (Late st Contact Info) Description 12/10/2019 Transcribed Document [facility] [place] Family Medicine [address] [place] [address] ProviderDel MD [address] [place] [address] Social History Tobacco Use Types Packs/Day Years Used Date Smoking Tobacco: Never Assessed Sex and Gender Information Value Date Recorded Sex Assigned at Not on file Legal Sex Male 1:45 PM CDT Gender Identity Not on file Sexual Orientation Not on file documented as of this encounter Miscellaneous Notes * Cerner Conversion Note - Del Ann MD - 12/10/2019 2:23 PM CDT DATE OF ADMISSION: 12/10/2019 HISTORY OF PRESENT ILLNESS: This is a 74-year-old male with a chief complaint of chronic neck and lower back pain for several years' duration, who is seen today for a followup visit. The patient is following up after we did a lumbar epidural steroid injection for him targeting L5-S1 on November 27, 2019. The patient denies any complications from the procedure and says that he is getting ongoing relief of about 50% from that. He says he has been able to increase his activity level. He says he is very pleased with that. The patient says that his low back pain is better since the injection. He says that he is feeling like he does not need any additional injections at this time for the low back. He says that he is having some pain in his neck that is worse at bedtime. He reports it as a stiffness that is also in the mid and lower part of the neck. The patient says it extends down to his mid back between his shoulder blades. He denies any radiating pain to the upper extremities or to his head. He says the pain is a shooting sensation. The patient says that he is not doing anything for the pain other than rest. He says that the pain in the neck began the day after seeing a chiropractor. He says that the chiropractor tried to adjust his neck and said that his muscles were too tense and he was unable to do so. He said that he then ran his hands up and down his spine and then pushed down really hard in the mid back. The patient says that he has been having that pain ever since then and that was a new pain. He says the pain is intermittent and not constant, so he does not feel like he needs an injection at this time. He says that he was thinking about trying a massage. The patient says that the pain feels more like it is a muscular problem. He reports that he feels like his low back pain is much improved since having the injections here at the clinic. He says that he actually had not had any pain in the low back until he saw the chiropractor at that visit and it reignited the low back pain as well. The patient is not on any opioid medications from our clinic. REVIEW OF SYSTEMS: Constitutional, respiratory, cardiovascular, ophthalmology, gastrointestinal, genitourinary, ENT, musculoskeletal, integumentary, neurology, psychiatry, endocrine, hematology were not changed from his last visit on November 27, 2019. PHYSICAL EXAMINATION: VITAL SIGNS: Blood pressure 126/64, weight 140, height 66 inches, heart rate 88, respiratory rate 16, O2 saturation 95%, temperature 98.9. Pain level 5, hours of sleep 6 to 10. No change in physical and neurological exam. Muscle tone, power, sensory, and deep tendon reflexes were unchanged. The nurse's notes, vital signs, and medication were reviewed and evaluated. ASSESSMENT: 1. Chronic neck and lower back pain secondary to degenerative joint disease and degenerative disk disease of the cervical and lumbosacral spine. 2. Lumbosacral radiculopathy. 3. Cervical and lumbosacral spondylosis. PLAN: 1. I am very pleased with the results of lumbar epidural steroid injection we did for the patient on November 27, 2019, that has gotten him a significant amount of ongoing help and relief. The patient is very happy with that. He says that he has been able to do more activity and he is very pleased with that. We are going to repeat that as needed. 2. We are going to add compound cream four times daily as needed for the neck and lower back. 3. We are going to add Flexeril 5 mg twice daily as needed, should the patient continue to have any muscular pain. 4. We are going to send the patient for some physical therapy to help improve his gait, range of motion and stiffness. 5. We are going to be happy to see the patient back as needed. He says he does not need any injections right now, but will contact us when he starts having pain again, so we will be happy to see him at that time. 6. The assessment and plan for today's visit have been reviewed by Dr. Hearn, however, I have prescribed the medications for this patient's treatment plan today. /[id number] THEO Martinez/AQ / RAYA / MODL CC: Ricki Aguilar MD documented in this encounter Plan of Treatment Not on file documented as of this encounter Visit Diagnoses Not on filedocumented in this encounter
--- OUTSIDE RECORDS SUMMARY | 2024-11-11 07:37 | XMS_ITS | Encounter Summary ---
Author Organization [employer] [facility] Address [address] [place] [address] Care Team Providers Care Civil Structural Designer Name Role Phone Unavailable Primary Care Provider Unavailabl e Encounter Details Date Type Department Care Team (Late st Contact Info) Description 11/27/2019 Transcribed Document [facility] [place] Medicine [address] [place] [address] ProviderDel MD [address] [place] [address] Social History Tobacco Use Types Packs/Day Years Used Date Smoking Tobacco: Never Assessed Sex and Gender Information Value Date Recorded Sex Assigned at Not on file Legal Sex Male 1:45 PM CDT Gender Identity Not on file Sexual Orientation Not on file documented as of this encounter Miscellaneous Notes * Cerner Conversion Note - Del Ann MD - 11/27/2019 9:21 AM CDT DATE OF PROCEDURE: 11/27/2019 SURGEON: Cindy Hearn MD, THANG Pain Certified PROCEDURE: Lumbar epidural steroid injection. LEVEL: I tried level L3-4, which was unsuccessful. Finally, we did the level L5-S1 successfully. SEDATION: We did not give any sedation. DIAGNOSIS: Lumbosacral radiculopathy. PROCEDURE SUMMARY: After explaining the risks and benefits of the procedure, an informed consent was obtained. The patient was transferred to the procedure room and placed on the table in the prone position. Noninvasive monitors were applied by the procedural room nurse and monitored per standard protocol. Prior to beginning the procedure, a timeout was performed. The lumbar area was then prepped and draped in sterile fashion. The skin and tissues overlying the specific target levels were anesthetized with 1% lidocaine mixed with bicarbonate, using a 25-guage needle. An 18-gauge Tuohy needle was advanced by the extd-rs-aiisdrwrdq technique under direct fluoroscopic guidance into the posterior epidural space without difficulties. Aspiration was negative for blood and/or CSF. The epidural needle position was confirmed in the lateral view and also with injection of 2 mL of Isovue which showed good cephalad and caudad spread in the epidural space. Intravascular and intrathecal injection was excluded. There was no paresthesia during needle placement. A total of 10 mL of volume was injected containing 80 mg of Depo-Medrol and 1 mL of bupivacaine 0.25%. The remaining volume includes preservative free normal saline. The needle was then withdrawn and a dressing was used to cover the injection site. The patient tolerated the procedure well and without incident. Upon completion of the procedure, the patient was transferred to the recovery area in stable condition. The patient was monitored per protocol and discharged from the clinic neurologically intact and with appropriate discharge instructions. The patient has been instructed to contact my office with any questions or difficulties. Preprocedure pain level 4 to 5/10, postprocedure 0/10. TOTAL FLUOROSCOPY TIME: 1 minute and 37 seconds. PLAN: The patient stopped the Plavix 7 days before the procedure to avoid spinal hematoma. We are going to review his neck pain, and hopefully, we will target the different interventional treatment for his neck to help him more with his neck pain, which is radiated to the upper extremities. The patient has been screened for symptoms or risk factors related to COVID-19 both prior to arrival for the visit and upon arrival at the clinic for the visit today. No risk factors or symptoms are identified at today's visit and the patient has been afebrile. /[id number] Cindy Hearn MD, THANG Pain Certified ARIADNA/JAMIA / KR / MODL /[id number] Electronically signed by Trae Valenzuela Conversion Evaporative Cooler Installer Cerner at 08/31/2022 6:27 PM CDT documented in this encounter Plan of Treatment Not on file documented as of this encounter Visit Diagnoses Not on filedocumented in this encounter
--- OUTSIDE RECORDS SUMMARY | 2024-11-11 07:37 | XMS_ITS | Clinical Summary ---
Author Organization [facility] Address [address] [place] [address] Care Team Providers Care Roller Man Name Role Phone Ricki Aguilar MD Primary Care Provider [phone] Allergies No known active allergies Medications aspirin 81 MG EC tablet Take 1 tablet by mouth 1 time each day. 01/15/2019 Active atorvastatin (Lipitor) 40 MG tablet Take 1 tablet by mouth 1 time each day. Active clopidogrel (Plavix) 75 MG tablet Take 1 tablet by mouth daily. Active Lopid 600 MG tablet take 1 tablet every day for 90 days 11/09/2018 Active ketoconazole (NIZOral) 2 % shampoo SHAMPOO AND LATHER ON SCALP AND BEHIND EARS FOR 5-10 MINUTES 2-4 TIMES PER WEEK NEEDED 03/10/2024 Active losartan-hydroC HLOROthiazide (Hyzaar) 50-12.5 MG tablet Take 0.5 tablets by mouth. Active Na Sulfate-K Sulfate-Mg Sulf 17.5-3.13-1.6 GM/177ML solution DILUTE, DRINK FULL AMOUNT EARLY EVENING BEFORE AND NEXT MORNING AT LEAST 4 TO 5 HOURS BEFORE PROCEDURE, FOLLOW WITH 960ML WATER 08/21/2024 Active Active Problems Problem Noted Date Diagnosed Date Dry eyes 10/25/2024 Assessment & Plan (10/25/2024 11:25 PM EDT): Age-related nuclear cataract of both eyes 2024 Assessment & Plan (10/25/2024 11:25 PM EDT): Myopia of both eyes 10/25/2024 Assessment & Plan (10/25/2024 11:25 PM EDT): Presbyopia 10/25/2024 Assessment & Plan (10/25/2024 11:25 PM EDT): Encounters Date Type Department Care Team Description 10/25/2024 1:15 PM EDT Office Visit [facility] [address], [address] [place] [address] Lisa Perez MD Age-related nuclear cataract of both eyes (Primary Dx); Dry eyes; Myopia of both eyes; Presbyopia 10/25/2024 Travel from Last 3 Months Family History Medical History Relation Name Comments Cardiac disorder Father Diabetes Father Stroke Father Alcohol abuse Mother Bleeding disorder Mother Conversions - Other Mother Liver pr oblem Depression Mother Hepatitis Mother Hypertension Mother Kidney disease Mother Lung disease Mother Relation Name Status Comments Father Mother Social History Tobacco Use Types Packs/Day Years [...] on file Sexual Orientation Not on file Last Filed Vital Signs Vital Sign Reading Time Taken Comments Blood Pressure 126/80 01/15/2019 12:58 PM EDT Pulse 80 01/15/2019 12:58 PM EDT Temperature 36.6 C (97.9 F) 01/15/2019 12:58 PM EDT Respiratory Rate 16 01/15/2019 12:58 PM EDT Oxygen Saturation - - Inhaled Oxygen Concentration - - Weight 63.6 kg (140 lb 4.1 oz) 01/15/2019 12:58 PM EDT Height 167.6 cm (5' 6 ) 01/15/2019 12:58 PM EDT Body Mass Index 22.64 01/15/2019 12:58 PM EDT Plan of Treatment Upcoming Encounters Date Type Department Care Team (Late st Contact Info) Description 01/24/2025 10:15 AM EDT Office Visit [facility] [address], [address] [place] [address] Mariano Harrell MD [address] [facility] [address] [place] [address] Health Maintenance Due Date Last Done Comments [facility]-Depression Screening 1945 [facility]-Hepatitis C Screening 1945 [facility]-Medicare Annual Wellness (AWV) 1945 [facility]-Infant/Child/Adol SDOH Screenings 1945 [facility]- SDOH Screenings 08/02/1965 [facility]-Adult SDOH Screenings 08/02/1965 [facility]-Pneumococcal Vaccine: 50+ Years (1 of 1 - PCV) 08/02/1997 [id number] Vaccine (2023- season) 2024 02/14/2024, 02/14/2023, 02/04/2022, Additional history exists [facility]-Influenza Vaccine (Season Ended) 2025 01/30/2023, 02/04/2022, 02/01/2021, Additional history exists [facility]-DTaP,Tdap,and Td Vaccines (2 - Td or Tdap) 10/03/2028 10/03/2018 [facility]-Hepatitis A Vaccines Aged Out 04/19/2018 No longer eligible based on patient's age to complete this topic [facility]-Zoster Vaccines Completed 11/07/2022, [facility]-RSV Vaccine: 60+ Years or Completed 02/14/2023 HPV Vaccines Aged Out No longer eligi ble based on patient's age to complete this topic [facility]-HIB Vaccines Aged Out No longer e ligible based on patient's age to complete this topic [facility]-IPV Vaccines Aged Out No longer e ligible based on patient's age to complete this topic [facility]-Rotavirus Vaccines Aged Out No lo nger eligible based on patient's age to complete this topic Insurance MEDICARE ANTHEM Care Teams Roller Man Relationship Specialty Start Date End Date Ricki Aguilar MD [address] [place] [id number] PCP - General 09/25/20
--- OUTSIDE RECORDS SUMMARY | 2024-11-11 07:37 | XMS_ITS | Encounter Summary ---
Author Organization [employer] [facility] Address [address] [place] [address] Care Team Providers Care Bindery Supervisor Name Role Phone Unavailable Primary Care Provider Unavailabl e Encounter Details Date Type Department Care Team (Late st Contact Info) Description 10/09/2018 Transcribed Document [facility] [place] Medicine [address] [place] [address] ProviderDel MD [address] [place] [address] Social History Tobacco Use Types Packs/Day Years Used Date Smoking Tobacco: Never Assessed Sex and Gender Information Value Date Recorded Sex Assigned at Not on file Legal Sex Male 1:45 PM CDT Gender Identity Not on file Sexual Orientation Not on file documented as of this encounter Miscellaneous Notes * Cerner Conversion Note - Del Ann MD - 10/09/2018 8:42 AM CDT DATE OF PROCEDURE: 10/09/2018 PROCEDURE: Lumbar epidural steroid injection. LEVEL: L3-4. SEDATION: We did not give any sedation. DIAGNOSIS: Lumbosacral radiculopathy. PROCEDURE SUMMARY: After explaining the risks and benefits of the procedure, an informed consent was obtained. The patient was transferred to the procedure room and placed on the table in the prone position. Noninvasive monitors were applied by the procedural room nurse and monitored per standard protocol. Prior to beginning procedure, a time out was performed. The lumbar area was then prepped and draped in sterile fashion. The skin and tissues overlying the specific target levels were anesthetized with 1% Lidocaine mixed with Bicarbonate, using a 25-gauge needle. An 18 gauge Tuohy needle was advanced by the loss -of -resistance technique under direct fluoroscopic guidance into the [...] volume was injected containing 80 mg of Kenalog and 1 mL of Bupivacaine 0.25%. The remaining volume includes preservative free [...] my office with any questions or difficulties. Pre and post procedure pain levels are documented in the chart. Preprocedure pain level 5/10, postprocedure 0/10. I am going to schedule the patient for lumbar epidural steroid injection this time targeting L4-5 to help the patient more with his radicular pain. We are also going to evaluate him for his spondylosis pain by trying with lumbosacral facet block afterwards to help him more with his back pain. Cindy Hearn M.D., THANG Pain Certified Dict: 10/09/2018 08:42:28 Trans: 10/09/2018 10:00:53 CC1: Cindy Hearn M.D., THANG Pain Certified documented in this encounter Plan of Treatment Not on file documented as of this encounter Visit Diagnoses Not on filedocumented in this encounter
--- OUTSIDE RECORDS SUMMARY | 2024-11-11 07:37 | XMS_ITS | Encounter Summary ---
Author Organization [employer] [facility] Address [address] [place] [address] Care Team Providers Care Watershed Coordinator Name Role Phone Unavailable Primary Care Provider Unavailabl e Encounter Details Date Type Department Care Team (Late st Contact Info) Description 11/07/2019 Transcribed Document [facility] [place] [address] [place] [address] ProviderDel MD [address] [place] [address] Social History Tobacco Use Types Packs/Day Years Used Date Smoking Tobacco: Never Assessed Sex and Gender Information Value Date Recorded Sex Assigned at Not on file Legal Sex Male 1:45 PM CDT Gender Identity Not on file Sexual Orientation Not on file documented as of this encounter Miscellaneous Notes * Cerner Conversion Note - Del Ann MD - 11/07/2019 12:38 PM CDT DATE OF ADMISSION: 11/06/2019 HISTORY OF PRESENT ILLNESS: This is a 74-year-old male with a chief complaint of chronic lower back pain radiated to lower extremity for several years' duration. The patient describes most of his pain as a constant combination of aching, burning pain localized in lower back and radiated both lower extremities. The patient has tingling in both lower extremities, but denied any weakness or change in his bowel or bladder control. His average pain 7/10 and the pain increased by bending forward or walking. The pain decreased by rest and had an interventional injective for his epidural. Patient is well known to us. We evaluated him in last year in 2019, and he had two epidural steroid injections that gave the patient good help and relief. He did well during that time. However, his pain started slowly coming back. He saw his family physician, Dr. Aguilar, who placed him on Lyrica that did not help him. However, he mentioned that give him some help for sleep at night. He also went to the chiropractor did some adjustment that helped him some. His pain is getting more aggravated, so he decided to come to our clinic to see if we can repeat the epidural steroid injection gave the patient more help and relief. CURRENT MEDICATIONS: 1. Aspirin. 2. Atorvastatin. 3. Gemfibrozil. 4. Losartan. 5. Plavix. REVIEW OF SYSTEMS: MUSCULOSKELETAL: Joint pain, muscle aches. NEUROLOGY: Numbness and difficulty walking. ENDOCRINE: Urinary frequency and fatigue. Constitutional, respiratory, cardiovascular, ophthalmology, gastrointestinal, genitourinary, ENT, musculoskeletal, integumentary, neurology, psychiatry, endocrine, hematology were unremarkable. Allergies, surgery, past medical history and social history have not changed since November 2018. PHYSICAL EXAMINATION: VITAL SIGNS: Blood pressure 147/67, heart rate is 71, temperature 99, respirations 16, saturation 99%. Height 5 feet 6 inches, weight 140. Visual analogue scale of pain 5/10. Directed Physical Examination: The patient has an antalgic gait. He is able to heel and toes without problem. Flexion and extension of the neck and trunk is moderately limited causing more pain and extension compared to flexion. Palpation of his neck and back reveals tenderness on bilateral cervical and lumbosacral facet area with facet loading. NEUROLOGICAL: Cranial nerves II to XII were unremarkable. Motors 5/5 bilateral symmetrical in the upper and lower extremities. Sensory grossly nonfocal in the upper and lower extremities. Deep tendon reflex is +1/4 on the right knee and ankle, 0/4 on the left knee and ankle. Straight leg raise is equivocal on the left side. I did not have any new images on the patient neck and back. The nurse note and EDIS were reviewed and evaluated. We did chronic pain psychology evaluation in our clinic with SOAPP-R, which showed the patient has mild risk to be on any controlled medicine. ASSESSMENT: 1. 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 2. Lumbosacral radiculopathy. 3. Lumbosacral spondylosis. 4. Cervical spondylosis. PLAN: 1. I had lengthy discussion with the patient in regard to his condition, the patient was evaluated in our clinic in early 2018, and he had two epidural steroid injection gave him good help and relief lasted for more than a year. His pain started coming back that conservative measure and medication including Lyrica did not give him major help and relief as well as chiropractor did not improve his pain. I am going to schedule him to repeat the lumbar epidural steroid injection to see if that will give him a good help and relief with his radicular pain. 2. The patient already on a blood thinner and I mentioned to him that I need to talk to his family physician to see if we can hold the blood thinner, Plavix for at least seven days before the procedure to avoid any spinal hematoma. 3. Once we get the patient some help and relief, we will start him on intense physical therapy to improve the range of movement of back and lower extremities. Thank you for letting me participate in the management of this patient. I will keep you informed of this patient's progress. If you have any questions or you need further information, please do not hesitate to contact our clinic. The patient has been screened for symptoms or risk factors related to COVID-19 both prior to arrival for the visit and upon arrival at the clinic for the visit today. No risk factors or symptoms are identified at today's visit and the patient has been afebrile. /[id number] Cindy Hearn MD, THANG Pain Certified ARIADNA/JAMIA / ARIADNA / MODL CC: Dr. Ricki Aguilar documented in this encounter Plan of Treatment Not on file documented as of this encounter Visit Diagnoses Not on filedocumented in this encounter
--- OUTSIDE RECORDS SUMMARY | 2024-11-11 07:37 | XMS_ITS | Clinical Summary ---
Author Organization [employer] [facility] Address [address] [place] [address] Care Team Providers Care Net Repairer Name Role Phone Unavailable Primary Care Provider Unavailabl e Social History Tobacco Use Types Packs/Day Years Used Date Smoking Tobacco: Never Assessed Sex and Gender Information Value Date Recorded Sex Assigned at Not on file Legal Sex Male 1:45 PM CDT Gender Identity Not on file Sexual Orientation Not on file Plan of Treatment Not on file
--- OUTSIDE RECORDS SUMMARY | 2024-11-11 07:37 | XMS_ITS | Encounter Summary ---
Author Organization [employer] [facility] Address [address] [place] [address] Care Team Providers Care Manager Proposal Name Role Phone Unavailable Primary Care Provider Unavailabl e Encounter Details Date Type Department Care Team (Late st Contact Info) Description 09/12/2018 Transcribed Document [facility] [place] [address] [place] [address] ProvidereDl MD [address] [place] [address] Social History Tobacco Use Types Packs/Day Years Used Date Smoking Tobacco: Never Assessed Sex and Gender Information Value Date Recorded Sex Assigned at Not on file Legal Sex Male 1:45 PM CDT Gender Identity Not on file Sexual Orientation Not on file documented as of this encounter Miscellaneous Notes * Cerner Conversion Note - Del Ann MD - 09/12/2018 10:30 AM CDT DATE OF PROCEDURE: 09/12/2018 PROCEDURE: Lumbar epidural steroid injection. LEVEL: L3-4. [...] 1% lidocaine mixed with bicarbonate, using a 25-gauge needle. An 18 gauge Tuohy needle was advanced by the cdrq-ef-tcrakzllla technique under direct fluoroscopic guidance into the [...] mg of Kenalog and 1 mL of bupivacaine 0.25%. The [...] office with any questions or difficulties. Pre procedure pain level 4/10 to 5/10, post procedure 0/10. PLAN: I am going to schedule the patient to repeat the lumbar epidural steroid injection as a third injection to give the patient maximum help and relief and then re-evaluate the patient after that. Cindy Hearn M.D., THANG Pain Certified Dict: 09/12/2018 10:30:14 Trans: 09/12/2018 11:18:00 CC1: Cindy Hearn M.D., THANG Pain Certified documented in this encounter Plan of Treatment Not on file documented as of this encounter Visit Diagnoses Not on filedocumented in this encounter
--- OUTSIDE RECORDS SUMMARY | 2024-11-11 07:37 | XMS_ITS | Encounter Summary ---
Author Organization [employer] [facility] Address [address] [place] [address] Care Team Providers Care Junior Linux Systems Administrator Name Role Phone Unavailable Primary Care Provider Unavailabl e Encounter Details Date Type Department Care Team (Late st Contact Info) Description 12/11/2018 Transcribed Document [facility] [place] Family Medicine [address] [place] [address] ProviderDel MD [address] [place] [address] Social History Tobacco Use Types Packs/Day Years Used Date Smoking Tobacco: Never Assessed Sex and Gender Information Value Date Recorded Sex Assigned at Not on file Legal Sex Male 1:45 PM CDT Gender Identity Not on file Sexual Orientation Not on file documented as of this encounter Miscellaneous Notes * Cerner Conversion Note - Del Ann MD - 12/11/2018 7:47 AM CDT DATE OF ADMISSION: 12/06/2018 HISTORY OF PRESENT ILLNESS: This is a 73-year-old male with a chief complaint is chronic lower back pain radiated to both lower extremities, came today for followup. The patient was scheduled to have a third epidural steroid injection; however, he mentioned the first epidural steroid injection was on September 12 and October 09, that gave the patient maximum help and relief and currently his pain level is 0/10. He has a very little pain any since the last visit. He started working outside yesterday for a long period of time without pain. He is pleased with that result and he was able to accomplish so many things at home and outside the house. Still a smoker, a pack a day, and he has a hard time stop smoking. The patient's last visit was on November 08, 2018, but his procedure canceled because of pneumonia. He is getting much better with his pneumonia as well as he is getting better with his pain too. REVIEW OF SYSTEMS: Constitutional, Respiratory, Cardiovascular, Ophthalmology, Gastrointestinal, Genitourinary, ENT, Musculoskeletal, Integumentary, Neurology, Psychiatry, Endocrine, Hematology were not changed from his last visit on November 08, 2018. PHYSICAL EXAMINATION: Blood pressure 153/72, heart rate is 68, respiration 16, saturation 94%, temperature 96.7. Pain level 0. Hours of sleep is 8. No change in physical and neurological exam. Muscle tone power sensory and deep tendon reflexes were unchanged. The nurse notes, vital signs, and medication were reviewed and evaluated. ASSESSMENT: 1. Chronic lower back pain secondary to degenerative joint disease and degenerative disk disease to the lumbosacral spine. 2. Lumbosacral radiculopathy. 3. Lumbosacral spondylosis. 4. Chronic smoker. 5. Recently recovered from pneumonia. PLAN: 1. I had a lengthy discussion with the patient in regard to his condition. I am pleased with the result of the two epidural steroid injections in September that gave the patient almost 100% relief of pain and now his pain level is 0. The patient was able to accomplish so many things at home and outside the house and he was able to be outside for a while without much problem. 2. I encouraged the patient to continue following up with his family physician in regard to his pneumonia. 3. I had a lengthy discussion with the patient and advised to stop smoking. 4. I also encouraged the patient to continue home exercise, stretching, and walking. 5. I will be happy to see the patient on p.r.n. basis when he needs to repeat the epidural steroid injection. Cindy Hearn M.D., THANG Pain Certified Dict: 12/11/2018 07:47:19 Trans: 12/11/2018 10:31:20 CC1: Cindy Hearn M.D., THANG Pain Certified CC2: Tylor Aguilar M.D. documented in this encounter Plan of Treatment Not on file documented as of this encounter Visit Diagnoses Not on filedocumented in this encounter
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
--- OUTSIDE RECORDS SUMMARY | 2024-11-11 07:38 | XMS_ITS | Referral Summary ---
Author Organization [employer] Address [address] [place] [address] Care Team Providers Care Volunteer Services Supervisor Name Role Phone Unavailable Primary Care [...]
[2024-11-11 08:16] LABS: Blood Urea Nitrogen 19 mg/dl (9-20); Estimated Glomerular Filt Rate 72 ml/min (>60); GFR (African American) 88 ML/MIN (>60)
[2024-11-11] MEDS: IOPAMIDOL-370 (76%);100ML BOTTLE 93 ML IV (08:43)
[2024-11-11] MEDS: 0.9 % SODIUM CHLORIDE 50 ML VIAL 40 ML IV (08:43)
[2024-11-11] MEDS: SODIUM CHLORIDE 0.9% 10ML SYR (RAD ONLY) 10 ML IV (08:43)
== END 2024-11-11 23:59 | disposition home or self-care (01) ==
LOC: RAD 07:34
PROVIDERS: PCP Family Medicine; Visit Provider Family Medicine
DX: G45.0 Vertebro-basilar artery syndrome (principal)
CPT/HCPCS: 36415; 70496; 82565; 84520; Q9967

== ENCOUNTER 2024-11-14 14:22 | Outpatient (CLI) | payer MEDICARE, BC, SELFPAY ==
--- OUTSIDE RECORDS SUMMARY | 2024-10-25 13:15 | XMS_ITS | Encounter Summary ---
Author Organization Healthcare Address [address] [place] [address] Care Team Providers Care Help Desk Specialist Name Role Phone Ricki Aguilar MD Primary Care Provider [phone] Reason for Visit * Reason Comments Blurred Vision Encounter Details Date Type Department Care Team (Latest Contact Info) Description 10/25/2024 1:15 PM EDT Office Visit [facility] [place] [address], [address] [place] [address] Lisa Perez MD [address] [place] [address] Age-related nuclear cataract of both [...] choroidal lesions Refraction Wearing Rx Sphere Cylinder [place] Right -2.50 +2.00 005 Left +0.50 +1.50 170 Manifest Refraction Sphere Cylinder [place] Dist VA Right -3.50 +2.50 005 20/30+1 [...] Description 01/24/2025 10:15 AM EDT Office Visit [facility] [address], [address] [place] [address] Mariano Harrell MD [address] [place] [address] documented as of this encounter Visit Diagnoses Diagnosis Age-related nuclear cataract of both eyes- Primary Dry eyes 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
--- OUTSIDE RECORDS SUMMARY | 2024-11-14 14:25 | XMS_ITS | Encounter Summary ---
Author Organization [employer] ([place], [place], [place], [place]) Address [address] [place] [address] Care Team Providers Care Rehab Assistant Name Role Phone Unavailable Primary Care Provider Unavailabl e Encounter Details Date Type Department Care Team (Late st Contact Info) Description 09/12/2018 Transcribed Document [facility] [facility] [place] [address] [place] [address] ProviderDel MD [facility] [place], [place] [address] Social History Tobacco Use Types Packs/Day Years [...] gauge Tuohy needle was advanced by the cgpl-ap-oopkaftdgh technique under direct fluoroscopic guidance into the [...] CC1: Cindy Hearn M.D., THANG Pain Certified Electronically signed by Trae Valenzuela Conversion Automatic Cigar Wrapper Tender Cerner at 08/31/2022 6:41 PM CDT documented in this encounter Plan of Treatment Not on file documented as of this encounter Visit Diagnoses Not on filedocumented in this encounter
--- OUTSIDE RECORDS SUMMARY | 2024-11-14 14:25 | XMS_ITS | Encounter Summary ---
Author Organization [employer] ([place]) Address [address] [place] [address] Care Team Providers Care Online Media Director Name Role Phone Unavailable Primary Care Provider Unavailabl e Encounter Details Date Type Department Care Team (Late st Contact Info) Description 09/04/2018 Transcribed Document [facility] [place] [address] [place] [address] ProviderDel MD [address] [place] [address] Social History Tobacco Use Types Packs/Day Years [...] CC2: Dr. Ricki Aguilar Electronically signed by [facility], [facility] Conversion Facility Manager Cerner at 08/31/2022 6:56 PM CDT documented in this encounter Plan of Treatment Not on file documented as of this encounter Visit Diagnoses Not on filedocumented in this encounter
--- OUTSIDE RECORDS SUMMARY | 2024-11-14 14:25 | XMS_ITS | Encounter Summary ---
Author Organization [employer] ([place]) Address [address] [place] [address] Care Team Providers Care Community Health Planning Director Name Role Phone Unavailable Primary Care Provider Unavailabl e Encounter Details Date Type Department Care Team (Late st Contact Info) Description 11/27/2019 Transcribed Document [facility] [place] Medicine [address] [place] [address] ProviderDel MD [facility] [place], [place] [address] Social History Tobacco Use Types Packs/Day Years [...] 18-gauge Tuohy needle was advanced by the suii-ku-rjgsdyudsz technique under direct fluoroscopic guidance into the [...] visit and the patient has been afebrile. /[id number] Cindy Hearn MD, THANG Pain Certified ARIADNA/JAMIA / KR / MODL /[id number] documented in this encounter Plan of Treatment Not on file documented as of this encounter Visit Diagnoses Not on filedocumented in this encounter
--- OUTSIDE RECORDS SUMMARY | 2024-11-14 14:25 | XMS_ITS | Referral Summary ---
Author Organization [employer] ([place], [place]) Address [address] [place] [address] Care Team Providers Care Production Welding Supervisor Name Role Phone Unavailable Primary Care [...]
--- OUTSIDE RECORDS SUMMARY | 2024-11-14 14:25 | XMS_ITS | Encounter Summary ---
Author Organization [facility] Address [address] [place] [address] Care Team Providers Care Welt Sole Layer Name Role Phone Ricki Aguilar MD Primary Care Provider [phone] Encounter Details Date Type Department Care Team (Late Contact Info) Description 10/24/2022 Orders Only External Location [address] [place] [address] Provider, External Social History Tobacco Use Types [...] Description 01/24/2025 10:15 AM EDT Office Visit [facility] [place] [address] [place] [address], [address] [place] [address] Mariano Harrell MD [address] [address] documented as of this encounter [...] on filedocumented in this encounter Care Teams Welt Sole Layer Relationship Specialty Start Date End Date Ricki Aguilar MD [address] [place] [address] PCP - General 09/25/20 documented as of this encounter
--- OUTSIDE RECORDS SUMMARY | 2024-11-14 14:25 | XMS_ITS | Encounter Summary ---
Author Organization [employer] ([place], [place], [place]) Address [address] [place] [address] Care Team Providers Care Archivist Nonprofit Foundation Name Role Phone Unavailable Primary Care Provider Unavailabl e Encounter Details Date Type Department Care Team (Late st Contact Info) Description 11/07/2019 Transcribed Document [facility] [place] Medicine [address] [place] [address] ProviderDel MD [address] [place] [address] Social History Tobacco Use Types Packs/Day Years Used Date Smoking Tobacco: Never Assessed Sex and Gender Information Value Date Recorded Sex Assigned at Not on file Legal Sex Male 1:45 PM CDT Gender Identity Not on file Sexual Orientation Not on file documented as of this encounter Miscellaneous Notes * Cerner Conversion Note - Historical MD Seth - 11/07/2019 12:38 PM CDT DATE OF [...] visit and the patient has been afebrile. /[id number] Cindy Hearn MD, THANG Pain Certified KR/AQ / KR / MODL CC: Dr. Ricki Aguilar Electronically signed by Bianca, [facility] Conversion Pressroom Supervisor Cerner at 08/31/2022 6:42 PM CDT documented in this encounter Plan of Treatment Not on file documented as of this encounter Visit Diagnoses Not on filedocumented in this encounter
--- OUTSIDE RECORDS SUMMARY | 2024-11-14 14:25 | XMS_ITS | Encounter Summary ---
Author Organization [employer] ([place]) Address [address] [place] [address] Care Team Providers Care Physician Recruiter Name Role Phone Unavailable Primary Care Provider Unavailabl e Encounter Details Date Type Department Care Team (Late st Contact Info) Description 11/08/2018 Transcribed Document [facility] [place] [address] [place] [address] ProviderDel MD [place] [address] Social History Tobacco Use Types Packs/Day Years Used Date Smoking Tobacco: Never Assessed Sex and Gender Information Value Date Recorded Sex Assigned at Not on file Legal Sex Male 1:45 PM CDT Gender Identity Not on file Sexual Orientation Not on file documented as of this encounter Miscellaneous Notes * Cerner Conversion Note - Historical MD Seth - 11/08/2018 1:42 PM CDT DATE OF [...] THANG Pain Certified CC2: Tylor Aguilar MD documented in this encounter Plan of Treatment Not on file documented as of this encounter Visit Diagnoses Not on filedocumented in this encounter
--- OUTSIDE RECORDS SUMMARY | 2024-11-14 14:25 | XMS_ITS | Clinical Summary ---
Author Organization [employer] ([place]) Address [address] [place] [address] Care Team Providers Care Ladle Liner Name Role Phone Unavailable Primary Care Provider [...]
--- OUTSIDE RECORDS SUMMARY | 2024-11-14 14:25 | XMS_ITS | Encounter Summary ---
Author Organization [employer] ([place]) Address [address] [place] [address] Care Team Providers Care Redeye Gunner Name Role Phone Unavailable Primary Care Provider Unavailabl e Encounter Details Date Type Department Care Team (Late st Contact Info) Description 10/09/2018 Transcribed [place] [facility] [place] [address] [place] [address] ProviderDel MD [facility] [place] [address] Social History Tobacco Use Types Packs/Day Years [...]
--- OUTSIDE RECORDS SUMMARY | 2024-11-14 14:25 | XMS_ITS | Clinical Summary ---
Author Organization [facility] Address [address] [place] [address] Care Team Providers Care Cost Accounting Manager Name Role Phone Ricki Aguilar MD Primary Care Provider [phone] Allergies No known active allergies Medications aspirin [...] Description 10/25/2024 1:15 PM EDT Office Visit [facility] [place] [address], [address] [place] [address] Lisa Perez MD Age-related nuclear [...] Description 01/24/2025 10:15 AM EDT Office Visit [facility] [place] [address], [address] [place] [address] Mariano Harrell MD [address] [facility] [address] [place] [address] Health Maintenance Due Date Last Done Comments [facility]-Depression Screening 1945 [facility]-Hepatitis C Screening 1945 [facility]-Medicare Annual Wellness (AWV) 1945 [facility]-Infant/Child/Adol SDOH Screenings 1945 [facility]- SDOH Screenings 08/02/1965 [facility]-Adult SDOH Screenings 08/02/1965 [facility]-Pneumococcal Vaccine: 50+ Years (1 of 1 - PCV) 08/02/1997 [id number] Vaccine (2023-25 season) 2024 02/14/2024, 02/14/2023, 02/04/2022, Additional history exists [facility]-Influenza Vaccine (#1) 01/13/202501/30, 02/04/2022, 02/01/2021, Additional history exists [facility]-DTaP,Tdap,and Td [...] age to complete this topic [place] [address] [employer] Care Teams Cost Accounting Manager Relationship Specialty Start Date End Date Ricki Aguilar MD [address] [place] [address] PCP - General 09/25/20
--- OUTSIDE RECORDS SUMMARY | 2024-11-14 14:25 | XMS_ITS | Encounter Summary ---
Author Organization [employer] ([place]) Address [address] [place] [address] Care Team Providers Care Supervisor Fiberglass Boat Assembly Name Role Phone Unavailable Primary Care Provider Unavailabl e Encounter Details Date Type Department Care Team (Late st Contact Info) Description 12/10/2019 Transcribed Document [facility] [place] [address] [place] [address] ProviderDel MD [place] [address] Social History Tobacco Use Types Packs/Day Years Used Date Smoking Tobacco: Never Assessed Sex and Gender Information Value Date Recorded Sex Assigned at Not on file Legal Sex Male 1:45 PM CDT Gender Identity Not on file Sexual Orientation Not on file documented as of this encounter Miscellaneous Notes * Cerner Conversion Note - Historical ProviderMD - 12/10/2019 2:23 PM CDT DATE OF [...] medications for this patient's treatment plan today. /[id number] THEO Martinez/JAMIA / RAYA / MODL CC: Ricki Aguilar MD documented in this encounter Plan of Treatment Not on file documented as of this encounter Visit Diagnoses Not on filedocumented in this encounter
--- OUTSIDE RECORDS SUMMARY | 2024-11-14 14:25 | XMS_ITS | Encounter Summary ---
Author Organization Healthcare Address [address] [place] [address] Care Team Providers Care Wood Scaler Name Role Phone Ricki Aguilar MD Primary Care Provider [phone] Encounter Details Date Type Department Care Team [...] Description 01/24/2025 10:15 AM EDT Office Visit [facility] [place] [address], [address] [place] [address] Mariano Harrell MD 110 [facility] [address] [place] [address] documented as of this encounter Visit Diagnoses Not on filedocumented in this encounter Additional Health Concerns Assessment Noted Time A Body Mass Index follow-up plan has been documented for the patient 10/25/2024 3:16 PM EDT documented as of this encounter Care Teams Wood Scaler Relationship Specialty Start Date End Date Ricki Aguilar MD [address] [place] [address] PCP - General 09/25/20 documented as of this encounter
--- OUTSIDE RECORDS SUMMARY | 2024-11-14 14:25 | XMS_ITS | Encounter Summary ---
Author Organization [employer] ([place], [place], [place]) Address [address] [place] [address] Care Team Providers Care Nursing Admin Name Role Phone Unavailable Primary Care Provider Unavailabl e Encounter Details Date Type Department Care Team (Late st Contact Info) Description 12/11/2018 Transcribed Document [facility] [place] [address] [place] [address] ProviderDel MD [facility] [place] [address] Social History Tobacco Use Types Packs/Day Years [...] THANG Pain Certified CC2: Tylor Aguilar M.D. Electronically signed by Bianca [facility] Conversion Manager Portable Cerner at 08/31/2022 6:41 PM CDT documented in this encounter Plan of Treatment Not on file documented as of this encounter Visit Diagnoses Not on filedocumented in this encounter
== END 2024-11-14 23:59 | disposition home or self-care (01) ==
LOC: RT 14:23
PROVIDERS: PCP Family Medicine; Visit Provider Physician Assistant
DX: I49.1 Atrial premature depolarization (principal); I49.3 Ventricular premature depolarization; I47.10 Supraventricular tachycardia, unspecified; I63.9 Cerebral infarction, unspecified
CPT/HCPCS: 93270

== ENCOUNTER 2024-11-22 09:13 | Outpatient (CLI) | payer MEDICARE, BC, SELFPAY ==
--- OUTSIDE RECORDS SUMMARY | 2024-07-01 05:30 | XMS_ITS ---
Author Organization [facility] Address [address] [facility] [address] [place] [id number] Care Team Providers Care Interventional Cardiologist Name Role Phone Rupinder Aguilar Primary Care Provider [phone] Allergies No Known Allergies Results Component Value Reference Range Notes P-Comprehensive Metabolic Pa abran (CMP) Reviewed date:07/04/2024 09:51:08 AM Interpretation:Normal Performing Lab: Notes/Report: Test performed by [facility] [address] [place] [address] , [address], [place] [address] Omega Thomas MD, Suppression Crew Leader CLIA: [id number] Sodium 140 135-145 mmol/L Potassium 4.3 3.5-5.3 [...] Interpretation:Normal Performing Lab: Notes/Report: Test performed by [facility] [address], [place] [address] Omega Thomas MD, Suppression Crew Leader DANIEL: [id number] Cholesterol 143 <200 mg/dL Triglycerides 86 <150 [...] Interpretation:Normal Performing Lab: Notes/Report: Test performed by [facility] [address] [place] [address] , [address], [place] [address] Omega Thomas MD, Suppression Crew Leader CLIA: [id number] PSA 0.66 <4.00 ng/mL Please note this [...] Last Name Jeff Referring Provider Speciality Family [facility] ctice Referred Provider KENN BECKER Referred [...] Location Date Provider Diagnosis Kaci [address] [facility] [address] [facility] [address] [place] [phone] 07/01/2024 Rupinder Aguilar Essential hypertensi on I10 [...] Barry er, 11/29/2024 10:15:00 AM, [address] [facility] [address] [facility], [address], [place], [id number], Progress Notes * ROLANDO FANGDOB:1945 (79 yo M)Acc No.[id number]:07/01/2024 Progress Notes Patient: ROLANDO BECKETT Provider: Rupinder Aguilar M.D. :1945 A ge:78 Y S ex:Male Date:07/01/2024 Address:[address] [place], [place] [id number] Subjective: * Chief Complaints: * 1 . [...] vaccinations, per pharmacy, [facility] [place], [phone], States he had pneumonia vaccination. * Surgical History: B ilateral Rotator Cuff Repair 1998, Tonsilectomy , LT Knee 09/2006, Colonoscopy, [facility], Dr. Taylor, 42 polyps removed. Tubular adenomas 04/26/2022. * Hospitalization/Major Diagno stic [place]ck- [facility] ER 08/2010, [facility], [facility]neum[facility] 10/14/2019, [facility]. * Family History: [...] G 2211 Complex e/[place], [address] SPECIMEN HANDLING, 51491 VENIPUNCT, ROUTINE*, 3074F SYST BP LT 130 MM HG, 3078F DIAST BP < 80 MM HG * Follow Up: 4 Months * Images: Billing Information: * Visit Code: 99540 Office Visit, Est Pt., Level 4. * Procedure Codes: G2211 Complex e/[place]. [address] SPECIMEN HANDLING. 39138 VENIPUNCT, ROUTINE*. 3074F SYST BP LT 130 MM HG. 3078F DIAST BP < 80 MM HG. * Electronic signature of Rupinder Aguilar MD on 11/22/2024 at 09:15 AM EDT Sign off status: Pending * Provider: Rupinder Aguilar M.D. Date: 0 07/01/2024 Generated for Mare arora/Julianna/eTransmitting on: 0 11/22/2024 09:15 AM EDT History and Physical Notes * [...]
--- OUTSIDE RECORDS SUMMARY | 2024-08-22 06:15 | XMS_ITS ---
Author Organization [facility] Address [address] [facility] [address] [place] [id number] Care Team Providers Care Sewer Line Repairer Name Role Phone Rupinder Aguilar Primary Care Provider [place] Marycarmen Unavailable [phone] Allergies No Known Allergies REASON FOR VISIT [employer] d/c f/u Medications Medication SIG (Take, Route, Frequency, Duration) Notes Start Date End Date Status Lopid 600 MG take 1 tablet every day; Duration: 90 days Active Aspirin 81 MG 1 tab(s) orally bedtime 11/19/2014 Active Clopidogrel Bisulfate 75 MG Take 1 table t by mouth once daily; Duration: 90 Active Losartan Potassium-HCTZ 50-12.5 MG 1/2 orally once a day; Duration: 90 Active Atorvastatin Calcium 40 MG Take 1 tablet by mouth once daily; Duration: 90 days Active Social History Tobacco Use: Social History Observation Description Date Smoking Status WARNING: Information temporarily unavailable CURRENT TOBACCO USE: Question Answer Notes Additional Findings: Tobacco User STOPPED SMOKING MAY 2019 Problems Problem Type SNOMED Code ICD Code Onset Dates Problem Status W/U Status Risk Notes Problem Peripheral vascular disease (871381295) Peripheral vascular disease, unspecified (I73.9) Active confirmed Vital Signs Blood pressure systolic 122 mm Hg 08/23/19 25 Blood pressure diastolic 78 mm Hg 025 Heart Rate 74 /min 08/22/2024 Height 65 in 08/22/2024 Weight 154.2 lbs 08/22/2024 BMI 25.66 kg/m2 08/22/2024 Encounters Encounter Location Date Provider Diagnosis [facility] [address] [facility] [address] [place] [phone] 08/22/2024 Marycarmen Pham Peripheral vascular disease, unspecified I73.9 ; Mixed hyperlipidemia E78.2 and BMI 25.0-25.9,adult Z68.25 Assessments Encounter Date Diagnosis (ICD Code) Assessment Notes Treatment Notes Treatment Clinical Notes Section Notes 08/22/2024 Peripheral vascular disease, unspecified (ICD-10 - I73.9) 08/22/2024 Mixed hyperlipidemia (ICD-10 - E78.2) 08/22/2024 BMI 25.0-25.9,adult (ICD-10 - Z68.25) 08/22/2024 Other Discharge summary with available lab/diagnostic imaging results obtained and reviewed. Discharge medication list reconciled. Appropriate counseling provided. Moderate Complexity Plan Of Treatment Treatment Notes Assessment Notes Other Discharge summary wi th available lab/diagnostic imaging results obtained and reviewed. Discharge medication list reconciled. Appropriate counseling provided. Moderate Complexity Next Appt Details Provider Name:Rupinder Barry er, 11/29/2024 10:15:00 AM, [address] [facility], [address], [facility] [place], [phone], Progress Notes * ROLANDO FANGDOB:1945 (79 yo M)Acc No.[id number]:08/22/2024 Progress Notes Patient: ROLANDO BECKETT Provider: JESS King :1945 A ge:79 Y S ex:Male Date:08/22/2024 Address:[address] [place], [place] [phone] Pcp:Rupinder Aguilar Subjective: * Chief Complaints: * 1 . [facility] d/c f/u. * HPI: H PI: Patient is here today for a Transition of Care Visit. Discharge from the following Facility: [facility] , Discharge date: 08/18/2024 ,Date of phone contact following discharge: 08/19/2024. Pt states he is doing much better. Pt denies any chest pain or shortness of breath. Pt denies any new concerns. HR was 165. * ROS: D ERMATOLOGY: no R karina. [...] he has had pneumonia vaccinations, per pharmacy, [facility] [place], 03[facility]2018[facility] [phone], States he had pneumonia vaccination. * Surgical History: B ilateral Rotator Cuff Repair 1998, Tonsilectomy , LT Knee 09/2006, Colonoscopy, [facility], Dr. Taylor, 42 polyps removed. Tubular adenomas 04/26/2022. * Hospitalization/Major Diagno [place]ic [place]: [place], Stiff Neck- [facility] ER 08/2010, [facility], [facility]neumonia- [facility] 10/2018, [facility] 10[facility]14[facility]2019[facility] * Family History: F ather: [...] 1 tablet by mouth once daily , Medication List reviewed and reconciled with the patient * Allergies: N .K.D.A. Objective: * Vitals: W t:154.2, Temp:97.4, BP:122/78, HR:74, Nurse:WANDA, Ht: 65, BMI:25.66. Assessment: * Assessment: 1. P eripheral vascular disease, unspecified - I73.9 (Primary) 2 . M ixed hyperlipidemia - E78.2 3 . B [place] 25.0-25.9,adult - Z68.25 Plan: * Treatment: * Procedure Codes: 9 9495 TRANS CARE MGMT 14 DAY DISCH, 1111F DSCHR MED/CURENT MED MERGE, G2211 Complex e/m visit add on, 3074F SYST BP LT 130 MM HG, 3078F DIAST BP < 80 MM HG * Images: Billing Information: * Visit Code: 29550 Office Visit, Est Pt., Level 3. * Procedure Codes: 38730 TRANS CARE MGMT 14 DAY DISCH. 1111F DSCHR MED/CURENT MED MERGE. G2211 Complex e/m visit add on. 3074F SYST BP LT 130 MM HG. 3078F DIAST BP < 80 MM HG. * Electronic signature of JESS Bazan on 11/22/2024 at 09:15 AM EDT Sign off status: Pending * Provider: JESS King Date: 0 08/22/2024 Generated for Mare arora/Julianna/Sarahysmitting on: 0 11/22/2024 09:15 AM EDT History and Physical Notes * HPI (History of Present Illness) Category Sub-Category Detail Notes Category Not es HPI Patient is here today for a [facility] sition of Care Visit. Discharge from the following Facility: [facility] ,Discharge date: 08/18/2024 ,Date of phone contact following discharge: 08/19/2024. Pt states he is doing much better. Pt denies any chest pain or shortness of breath. Pt denies any new concerns. HR was 165
--- OUTSIDE RECORDS SUMMARY | 2024-10-25 13:15 | XMS_ITS | Encounter Summary ---
Author Organization Healthcare Address [address] [place] [address] Care Team Providers Care Testing Projects Administrator Name Role Phone Ricki Aguilar MD Primary Care Provider Reason for Visit * Reason Comments Blurred Vision Encounter Details Date Type Department Care Team (Latest Contact Info) Description 10/25/2024 1:15 PM EDT Office Visit [facility] [place] [address], [address] [place] [address] Lisa Perez MD [address] [place] [address] Age-related nuclear cataract of both [...] choroidal lesions Refraction Wearing Rx Sphere Cylinder [place]ball Right -2.50 +2.00 005 Left +0.50 +1.50 170 Manifest Refraction Sphere Cylinder Kimball Dist VA Right -3.50 +2.50 005 20/30+1 [...] Description 01/24/2025 10:15 AM EDT Office Visit [facility] [address], [address] [place] [address] Mariano Harrell MD [address] [place] [address] documented as of this encounter Visit Diagnoses Diagnosis Age-related nuclear cataract of both eyes- Primary Dry eyes 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
--- OUTSIDE RECORDS SUMMARY | 2024-11-01 05:30 | XMS_ITS ---
Author Organization [facility] Address [address] [place] [id number] Care Team Providers Care Dressed Poultry Grader Name Role Phone Rupinder Aguilar Primary Care Provider Allergies No Known Allergies Results Component Value Reference Range Notes CTA : Head (Not yet reviewed by provider) Interpretation:Negative Performing Lab: Notes/Report: Negative Reason For Referral Reason paroxysmal SVT Diagnosis 1 Paroxysmal SVT (supr aventricular tachycardia) (I47.10) [facility]erring Provider First Name Rupinder Snider Referring Provider Last Name Jeff Referring Provider Speciality Family Pra ctice Referred Provider Specialty Cardiovascul ar Disease General Notes Thuy Card 2024 10:07:06 AM > faxed to [facility] Cardiology Referral Priority Routine REASON FOR [...] Blood pressure systolic 120 mm Hg 11/02/19 Blood pressure diastolic 70 mm Hg 025 Heart Rate 78 /min 11/01/2024 Height 65 in 11/01/2024 Weight 152.4 lbs 11/01/2024 BMI 25.36 kg/m2 11/01/2024 Encounters Encounter Location Date Provider Diagnosis [facility] [address] [facility] [address] [place], [place] [id number] 11/01/2024 Rupinder Aguilar Carotid stenosis, bilateral I65.23 ; Vertebrobasilar insufficiency [...] Test Test Name Order Date CTA : [place] [facility] [place] 11/01/2024 CTA : Neck 11/01/2024 CTA : Head 11/01/2024 Referrals Referral Date Details 11/01/2024 11/01/2024, paroxysm al SVT Next Appt Details Follow Up: 4 Weeks, Reason: Provider Name:Rupinder Barry er, 11/29/2024 10:15:00 AM, [address], [address], [place], [place], [id number], Progress Notes * ANNALISA ROLANDODOB:1945 (79 yo M)Acc No.[id number]:11/01/2024 Progress Notes Patient: ROLANDO BECKETT Provider: Rupinder Aguilar M.D. :1945 A ge:79 Y S ex:Male Date:11/01/2024 Address:[address] [place], [place] [id number] Subjective: * Chief Complaints: * 1 . 4 Month Check Up. 2. Needs labs & Prevnar vaccine. * HPI: C ardiology: The patient is here today for a check up on Hypertension and Hyperlipidemia. Pt states he is doing good except for some dizziness when he bends his head back. Pt is not fasting. HAS HAD 2 EPISODES OF SVT. SEEN [facility] 79 year [facility] male [...] vaccinations, per pharmacy, Hep A [facility] [place], 03/2018, Dr. Hearn, [facility] [phone], States he had pneumonia vaccination. * Surgical History: B ilateral Rotator Cuff Repair 1998, Tonsilectomy , LT Knee 09/2006, Colonoscopy, [facility], Dr. Taylor, 42 polyps removed. Tubular adenomas 04/26/2022. * Hospitalization/Major Diagno stic Procedure: [place] [facility], Stiff Neck- [facility] ER 08/2010, Pericarditis- [facility] 07/20/2015, Pneumonia- [facility] ER 10/2018, [facility] 03/26-, Passed Out- [facility] 10/14/2019, Spinal cord stimulator, [facility] Mar 2023. * Family History: F ather: [...] (primary) hypertension - I10 8 . B MD 25.0-25.9,adult - Z68.25 Plan: * Treatment: 2.?Paroxysmal [...] G8420 BMI<30 AND >=22 CALC & DOCU, G0572 PREHTN/HTN BP DOC INDCD F/U DOC, G5155 MOST RECENT SYSTOLIC BP < 140MM HG, G8754 MOST RECENT DIASTOLIC BP < 90MM HG * Follow Up: 4 Weeks * Images: Billing Information: * Visit Code: 34121 Office Visit, Est Pt., Level 4. * [...] * Provider: Rupinder Aguilar M.D. Date: 0 11/01/2024 Generated for Mare arora/Julianna/eTransmitting on: 0 11/22/2024 [...]
--- OUTSIDE RECORDS SUMMARY | 2024-11-22 09:15 | XMS_ITS | Encounter Summary ---
Author Organization [employer] ([place], [place]) Address [address] [place] [address] Care Team Providers Care Cafeteria Server Name Role Phone Unavailable Primary Care Provider Unavailabl e Encounter Details Date Type Department Care Team (Late st Contact Info) Description 12/10/2019 Transcribed Document [facility] [place] Family Medicine [address] [place] [address] ProviderDel MD [facility] [place] [address] Social History Tobacco Use Types Packs/Day Years [...] medications for this patient's treatment plan today. /[id number] THEO Martinez/JAMIA / RAYA / MODL CC: Ricki Aguilar MD documented in this encounter Plan of Treatment Not on file documented as of this encounter Visit Diagnoses Not on filedocumented in this encounter
--- OUTSIDE RECORDS SUMMARY | 2024-11-22 09:15 | XMS_ITS | Encounter Summary ---
Author Organization Healthcare Address [address] [place] [address] Care Team Providers Care Processing Spec Name Role Phone Ricki Aguilar MD Primary Care Provider [phone] Encounter Details Date Type Department Care Team [...] Description 01/24/2025 10:15 AM EDT Office Visit [facility] [place] [address] [facility], [address] [place] [address] Mariano Harrell MD 110 [facility] [address] [place] [address] documented as of this encounter Visit Diagnoses Not on filedocumented in this encounter Additional Health Concerns Assessment Noted Time A Body Mass Index follow-up plan has been documented for the patient 10/25/2024 3:16 PM EDT documented as of this encounter Care Teams Processing Spec Relationship Specialty Start Date End Date Ricki Aguilar MD [address] [place] [address] PCP - General 09/25/20 documented as of this encounter
--- OUTSIDE RECORDS SUMMARY | 2024-11-22 09:15 | XMS_ITS | Encounter Summary ---
Author Organization [employer] ([place], [place]) Address [address] [place] [address] Care Team Providers Care Foundation Engineer Name Role Phone Unavailable Primary Care Provider Unavailabl e Encounter Details Date Type Department Care Team (Late st Contact Info) Description 11/27/[address] [facility] [place] [address] [place] [address] ProviderDel MD [facility] [place], [place] [address] Social History Tobacco Use Types Packs/Day Years [...] 18-gauge Tuohy needle was advanced by the tcyc-iq-qgenxgzpxp technique under direct fluoroscopic guidance into the [...] visit and the patient has been afebrile. /[id number] Cindy Hearn MD, THANG Pain Certified ARIADNA/JAMIA / KR / MODL /[id number] Electronically signed by Trae Valenzuela Conversion Marketing Automation Specialist Cerner at 08/31/2022 6:27 PM CDT documented in this encounter Plan of Treatment Not on file documented as of this encounter Visit Diagnoses Not on filedocumented in this encounter
--- OUTSIDE RECORDS SUMMARY | 2024-11-22 09:15 | XMS_ITS | Clinical Summary ---
Author Organization [employer] ([place]) Address [address] [place] [address] Care Team Providers Care Arm Maker Name Role Phone Unavailable Primary Care Provider [...]
--- OUTSIDE RECORDS SUMMARY | 2024-11-22 09:15 | XMS_ITS | Encounter Summary ---
Author Organization [employer] ([place], [place]) Address [address] [place] [address] Care Team Providers Care Podiatric Aide Name Role Phone Unavailable Primary Care Provider Unavailabl e Encounter Details Date Type Department Care Team (Late st Contact Info) Description 11/08/2018 Transcribed Document [facility] [place] Family Medicine [address] [place] [address] ProviderDel MD [facility] [place] [address] Social History Tobacco Use Types Packs/Day Years [...]
--- OUTSIDE RECORDS SUMMARY | 2024-11-22 09:15 | XMS_ITS | Encounter Summary ---
Author Organization [employer] ([place]) Address [address] [place] [address] Care Team Providers Care Hair Stylist Name Role Phone Unavailable Primary Care Provider Unavailabl e Encounter Details Date Type Department Care Team (Late st Contact Info) Description 12/11/2018 Transcribed Document [facility] [place] [address] [place] [address] ProviderDel MD [facility] [place] [address] Social History Tobacco Use Types Packs/Day Years [...] Tylor Aguilar M.D. Electronically signed by Bianca [facility] Conversion Abrasive Mixer Helper Cerner at 08/31/2022 6:41 PM CDT documented in this encounter Plan of Treatment Not on file documented as of this encounter Visit Diagnoses Not on filedocumented in this encounter
--- OUTSIDE RECORDS SUMMARY | 2024-11-22 09:15 | XMS_ITS | Encounter Summary ---
Author Organization Healthcare Address [address] [place] [address] Care Team Providers Care Supervisor Files Name Role Phone Ricki Aguilar MD Primary Care Provider [phone] Encounter Details Date Type Department Care Team (Late Contact Info) Description 10/24/2022 Orders Only External Location [address] [place] [address] Provider, External Social History Tobacco Use Types [...] Description 01/24/2025 10:15 AM EDT Office Visit [facility] [place] [address] [place] [address], [address] [place] [address] Mariano Harrell MD [address] [address] documented as of this encounter [...] on filedocumented in this encounter Care Teams Supervisor Files Relationship Specialty Start Date End Date Ricki Aguilar MD [address] [place] [address] PCP - General 09/25/20 documented as of this encounter
--- OUTSIDE RECORDS SUMMARY | 2024-11-22 09:15 | XMS_ITS | Encounter Summary ---
Author Organization [employer] ([place]) Address [address] [place] [address] Care Team Providers Care Technician'S Helper Name Role Phone Unavailable Primary Care Provider Unavailabl e Encounter Details Date Type Department Care Team (Late st Contact Info) Description 11/07/2019 Transcribed Document [facility] [place] Family Medicine [address] [place] [address] ProviderDel MD [address] [place] [address] Social History Tobacco Use Types Packs/Day Years [...] visit and the patient has been afebrile. /[id number] Cindy Hearn MD, THANG Pain Certified KR/AQ / KR / MODL CC: Dr. Ricki Aguilar documented in this encounter Plan of Treatment Not on file documented as of this encounter Visit Diagnoses Not on filedocumented in this encounter
--- OUTSIDE RECORDS SUMMARY | 2024-11-22 09:15 | XMS_ITS | Encounter Summary ---
Author Organization [employer] ([place]) Address [address] [place] [address] Care Team Providers Care Regulator Tester Name Role Phone Unavailable Primary Care Provider Unavailabl e Encounter Details Date Type Department Care Team (Late st Contact Info) Description 09/04/2018 Transcribed Document [facility] [place] [address] [place] [address] ProviderDel MD [address] [place] [address] Social History Tobacco Use Types Packs/Day Years [...] CC2: Dr. Ricki Aguilar Electronically signed by [facility] Conversion Inside Sales Representative Cerner at 08/31/2022 6:56 PM CDT documented in this encounter Plan of Treatment Not on file documented as of this encounter Visit Diagnoses Not on filedocumented in this encounter
--- OUTSIDE RECORDS SUMMARY | 2024-11-22 09:15 | XMS_ITS | Encounter Summary ---
Author Organization [employer] ([place]) Address [address] [place] [address] Care Team Providers Care Straw Hat Brim Cutter Operator Name Role Phone Unavailable Primary Care Provider Unavailabl e Encounter Details Date Type Department Care Team (Late st Contact Info) Description 10/09/2018 Transcribed Document [facility] [place] [address] [place] [address] ProviderDel MD [facility] [place] [address] Social History Tobacco Use Types Packs/Day Years [...]
--- OUTSIDE RECORDS SUMMARY | 2024-11-22 09:16 | XMS_ITS | Clinical Summary ---
Author Organization Healthcare Address [address] [place] [address] Care Team Providers Care Shag Truck Driver Name Role Phone Ricki Aguilar MD Primary Care Provider [phone] Allergies No known active allergies Medications aspirin [...] Description 10/25/2024 1:15 PM EDT Office Visit [facility] [place] [address], [address] [place] [address] Lisa Perez MD Age-related nuclear [...] 10:15 AM EDT Office Visit [facility] [place] [address], [address] [place] [address] Mariano Harrell MD 110 [facility] [address] [place] [address] Health Maintenance Due Date Last Done Comments [facility]-Depression Screening 1945 [facility]-Hepatitis C Screening 1945 [facility]-Medicare Annual Wellness (AWV) 1945 [facility]-Infant/Child/Adol SDOH Screenings 1945 [facility]- SDOH Screenings 08/02/1965 [facility]-Adult SDOH Screenings 08/02/1965 [facility]-Pneumococcal Vaccine: 50+ Years (1 of 1 - PCV) 08/02/1997 [id number] Vaccine (2023-25 season) 2024 02/14/2024, 02/14/2023, 02/04/2022, [...] age to complete this [place] [address] ANTHEM Care Teams Shag Truck Driver Relationship Specialty Start Date End Date Ricki Aguilar MD [address] [place] [address] PCP - General 09/25/20
--- OUTSIDE RECORDS SUMMARY | 2024-11-22 09:16 | XMS_ITS | Referral Summary ---
Author Organization [employer] ([place]) Address [address] [place] [address] Care Team Providers Care Unloader Operator Name Role Phone Unavailable Primary Care [...]
--- OUTSIDE RECORDS SUMMARY | 2024-11-22 09:16 | XMS_ITS | Encounter Summary ---
Author Organization [employer] ([place], [place], [place]) Address [address] [place] [address] Care Team Providers Care Gasoline Catalyst Operator Name Role Phone Unavailable Primary Care Provider Unavailabl e Encounter Details Date Type Department Care Team (Late st Contact Info) Description 09/12/2018 Transcribed Document [facility] [place] [address] [place] [address] ProviderDel MD [facility] [place], [place] [address] Social History Tobacco Use Types Packs/Day Years [...] gauge Tuohy needle was advanced by the sacv-nt-pjedzgxrjj technique under direct fluoroscopic guidance into the [...]
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
--- NOTE | 2024-11-22 09:30 | CA_ITS ---
APPROVED REPORT EXAM: Comprehensive 2D, Doppler, and color-flow Echocardiogram Instructional Material Director: Silvia Wheatley RT(R) Ht: 5 ft 6 in Wt: 153lbs BSA: 1.78 BP: 107/58 mmHg Indications: murmur, palpitations, HTN 2D Dimensions LA Volume 18.90 mL LA Volume Index 10.56 mL/m2 (M/F) 16-34 EF AP4 80.00 % GL Strain -19.1 % M-Mode Dimensions RVDd 2.65 cm (0.9-2.6) LA Diam 3.05 cm (1.9-4.0) LVDd 4.53 cm (3.5-5.7) LVDs 2.25 cm (3.5-5.7) IVSd 1.04 cm (0.6-1.1) PWd 0.84 cm (0.6-1.1) EF (Teich) 81.80% FS 50.30% EDV (Teich) 93.90 mL ESV (Teich) 17.10 mL LV Diastology E Decel Time 180 (160-240 msec) E/A Ratio 1.14 Mitral Valve MV A Velocity 62.0 (40-130 cm/s) E/A Ratio 1.14 Pulmonary Valve PV Peak Velocity 92.0 (50-150 cm/s) Tricuspid Valve TR P. Velocity 205.00 cm/s RAP Estimate 10.00 mmHg RVSP 26.80 mmHg Left Ventricle The left ventricle is normal size. The left ventricular systolic function is normal. The left ventricular ejection fraction is within the normal range. There is normal left ventricular wall thickness. There is normal LV segmental wall motion. The left ventricular diastolic function is normal. LVEF is 55%. Right Ventricle The right ventricle is normal size. The right ventricular systolic function is normal. Atria The left atrium size is normal. The right atrium size is normal. There is no Doppler evidence of interatrial shunt. Aortic Valve The aortic valve is mildly thickened. There is no aortic valvular stenosis. No aortic regurgitation is present. Mitral Valve The mitral valve is normal in structure. No evidence of mitral valve stenosis. Trace mitral regurgitation. Tricuspid Valve Tricuspid valve is grossly normal in structure and function. Mild tricuspid regurgitation. RVSP is normal. Pulmonic Valve The pulmonary valve is normal in structure. Trace pulmonic regurgitation. Great Vessels The aortic root is normal in size. IVC is normal in size and collapses >50% with inspiration. Pericardium There is no pericardial effusion. Other Information Study Quality: Fair Conclusion Normal biventricular systolic function. Mild TR. Electronically signed by : Shara Magana MD 11/30/2024 19:51:53
== END 2024-11-22 23:59 | disposition home or self-care (01) ==
LOC: RT 09:14
PROVIDERS: PCP Family Medicine; Visit Provider Physician Assistant
DX: I07.1 Rheumatic tricuspid insufficiency (principal); I10 Essential (primary) hypertension
CPT/HCPCS: 93306

== ENCOUNTER 2025-01-15 13:40 | Outpatient (CLI) | payer MEDICARE, BC, SELFPAY ==
[2025-01-15 14:34] LABS: Hematocrit 41.4 % (42.0-52.0); Hemoglobin 13.0 g/dL (14.1-18.0); Immature Granulocytes % 0.2 %; Mean Corpuscular HGB Conc 31.4 g/dL (31.8-35.4); Mean Corpuscular Hemoglobin 29.3 pg (27.0-31.2); Mean Corpuscular Volume 93.5 fl (80-94); Nucleated Red Blood Cells % 0 %; Platelet Count 308 K/mm3 (142-424); Red Blood Count 4.43 M/mm3 (4.60-6.20); Red Cell Distribution Width-SD 44.8 fL; White Blood Count 8.1 K/mm3 (4.8-10.8)
[2025-01-15 16:03] LABS: Chloride 104 mmol/L (98-107); Potassium 4.5 mmoL/L (3.5-5.1); Sodium 141 mmol/L (136-145)
[2025-01-15 16:06] LABS: Anion Gap 12.5 mEq/L (5-15); Blood Urea Nitrogen 23 mg/dl (9-20); Carbon Dioxide 29 mmol/L (22.0-30.0); Creatinine,Serum 1.10 mg/dl (0.66-1.25); Estimated Glomerular Filt Rate 65 ml/min (>60); GFR (African American) 79 ML/MIN (>60)
[2025-01-15 16:07] LABS: Calcium 9.5 mg/dl (8.4-10.2); Glucose 107 mg/dl (74-100)
== END 2025-01-15 23:59 | disposition home or self-care (01) ==
LOC: LAB 13:41
PROVIDERS: PCP Family Medicine; Visit Provider Internal Medicine
DX: I25.10 Atherosclerotic heart disease of native coronary artery without angina pectoris (principal); I10 Essential (primary) hypertension
CPT/HCPCS: 36415; 80048; 85025